=== PATIENT | male | born 1945 | race Caucasian/White ===

== ENCOUNTER 2017-09-23 08:42 | Emergency (ER) | payer MEDICARE ==
--- NOTE | 2017-09-23 10:12 | UC ---
Respiratory Complaint HPI - HPI Summary HPI Summary: Cough and congestion in chest worsening over the past week - History of Current Complaint Chief Complaint: UCRespiratory Stated Complaint: COUGH Time Seen by Provider: 09/23/17 10:11 Hx Obtained From: Patient Onset/Duration: Gradual Onset, Lasting Days - 7, Still Present Timing: Constant Severity Initially: Moderate Severity Currently: Moderate Pain Intensity: 0 Character: Cough: Productive Aggravating Factors: Deep Breaths, Recumbent Position Alleviating Factors: Bronchodilator Associated Signs And Symptoms: Positive: Pleuritic Chest Pain, Wheezing, URI, Nasal Congestion - Allergies/Home Medications Allergies/Adverse Reactions: Allergies Allergy/AdvReac Type Severity Reaction Status Date / Time COY Inhibitors Allergy Coughing Verified 09/23/17 09:02 atorvastatin Allergy Muscle Ache Verified 09/23/17 09:03 cephalexin [From Keflex] Allergy Swelling Verified 09/23/17 09:02 Penicillins Allergy Swelling Verified 09/23/17 09:04 Tetanus Vaccines and Toxoid Allergy Unknown Verified 09/23/17 09:02 Reaction Details PMH/Surg Hx/FS Hx/Imm Hx Previously Healthy: No Endocrine History: Diabetes, Dyslipidemia Cardiovascular History: Cardiac Disease Respiratory History: Asthma GI/ History: Gastroesophageal Reflux - Surgical History Surgical History: Yes Surgery Procedure, Year, and Place: Tonsillectomy 1952. Quadruple bypass 1990 [facility], single bypoass 2004. Nasal polyp removal 1991 and 1992 [facility]. Multiple angiograms, Single bypass 2004 [facility]. 2 stents 2003 [facility]. External beam radiation for prostate CA 1999 [facility]. Scar tissue removal from urethra [place] [facility] [place] 2 additional stents Aug 2013 [facility] [place]. Carotid endartectomy 2010 [facility] - Family History Known Family History: Positive: Hypertension - father Negative: Cardiac Disease, Diabetes - Social History Occupation: Retired Lives: With Family Alcohol Use: None Substance Use Type: None Smoking Status (MU): Former Smoker When Did the Patient Quit Smoking/Using Tobacco: 1982 - Immunization History Most Recent Influenza Vaccination: may 2016 Most Recent Tetanus Shot: 2012 Most Recent Pneumonia Vaccination: 2012 Review of Systems Constitutional: Fever - "99.3" Skin: Negative Eyes: Negative ENT: Negative Respiratory: Cough Cardiovascular: Negative Gastrointestinal: Negative Genitourinary: Negative Motor: Negative Neurovascular: Negative Musculoskeletal: Arthralgia, Myalgia Neurological: Negative Psychological: Negative Is Patient Immunocompromised?: No All Other Systems Reviewed And Are Negative: Yes Physical Exam Triage Information Reviewed: Yes Appearance: No Pain Distress, Ill-Appearing - mild, Obese Vital Signs: Initial Vital Signs Temp 98.1 F 09/23/17 08:47 Pulse 59 09/23/17 08:47 Resp 16 09/23/17 08:47 BP 125/65 09/23/17 08:47 Pulse Ox 95 09/23/17 08:47 Vital Signs Reviewed: Yes Eye Exam: Normal Eyes: Positive: Conjunctiva Clear ENT Exam: Normal ENT: Positive: Normal ENT inspection, Hearing grossly normal, Pharynx normal, TMs normal, Uvula midline. Negative: Nasal congestion, Tonsillar swelling, Tonsillar exudate, Trismus, Muffled voice, Hoarse voice, Dental tenderness, Sinus tenderness Dental Exam: Normal Neck exam: Normal Neck: Positive: Supple, Nontender Respiratory Exam: Normal Respiratory: Positive: Chest non-tender, Decreased breath sounds, Wheezing Cardiovascular Exam: Normal Cardiovascular: Positive: RRR, No Murmur, Pulses Normal, Brisk Capillary Refill Musculoskeletal Exam: Normal Musculoskeletal: Positive: Strength Intact, ROM Intact, No Edema Neurological Exam: Normal Neurological: Positive: Alert, Muscle Tone Normal Psychological Exam: Normal Skin Exam: Normal UC Diagnostic Evaluation - Laboratory O2 Sat by Pulse Oximetry: 95 - Radiology Xray Interpretation: Positive (See Comments) - early RLL infiltrate vs atlectasis Radiology Interpretation Completed By: Radiologist Respiratory Course/Dx - Course Course Of Treatment: Levoquin, continue albuterol, mucinex, tylenol follow with Dr. Ha - Differential Dx/Diagnosis Provider Diagnoses: RLL pneumonia Discharge - Discharge Plan Condition: Good Disposition: HOME Prescriptions: Levofloxacin TAB* [Levaquin TAB*] 500 mg PO DAILY #10 tab Patient Education Materials: Bacterial Pneumonia (ED) Referrals: Pedro Gillespie DO [Primary Care Provider] - 2 Days
[2017-09-23] MEDS ORDERED: Albuterol/Ipratropium NEB.SOL* Albuterol 2.5 MG/Ipratropium 0.5 MG 3 ML INH ONE (10:19)
[2017-09-23 10:44] VITALS: BP 159/88
--- NOTE | 2017-09-23 10:45 | RAD ---
HISTORY: Shortness breath, cough COMPARISONS: October 17, 2013 VIEWS: 4: Frontal dual-energy and lateral views of the chest. FINDINGS: CARDIOMEDIASTINAL SILHOUETTE: The cardiomediastinal silhouette is normal. BRANDON: The brandon are normal. PLEURA: The costophrenic angles are sharp. No pleural abnormalities are noted. LUNG PARENCHYMA: There is hyperinflation with flattening of the diaphragm and expansion of the AP diameter of the chest. There is patchy linear opacification of the right lower lung. ABDOMEN: The upper abdomen is clear. There is no subphrenic gas. BONES AND SOFT TISSUES: The patient is status post median sternotomy. OTHER: None. IMPRESSION: COPD PATCHY ATELECTASIS VERSUS EARLY CONSOLIDATION OF THE RIGHT LOWER LUNG. RECOMMEND FOLLOW-UP UNTIL RESOLUTION TO EXCLUDE UNDERLYING PULMONARY PARENCHYMAL PATHOLOGY.
== END 2017-09-23 11:15 | disposition home or self-care (01) ==
LOC: UCEAST 08:42
DX: J18.9 Pneumonia, unspecified organism (principal); Z87.891 Personal history of nicotine dependence
CPT/HCPCS: 71046; 87502; 99213; A9270-GY; G0463

== ENCOUNTER 2018-12-12 14:54 | Inpatient (IN) | payer MEDICARE ==
[2018-12-12] MEDS ORDERED: NS 0.9% 1000 ML** 1,000 ML IV ONE (15:11)
--- NOTE | 2018-12-12 15:17 | ED ---
GI/ HPI - HPI Summary HPI Summary: Patient is a 73 y/o male who presents to the ED c/o urinary retention. 6 days ago he was diagnosed with a UTI and was placed on Ciprofloxacin. This past week he saw his PCP Dr. Gillespie, who states that his kidney function has worsened. Patient now c/o mild suprapubic pressure and decreased urinary output. A few days ago he also had chills. Patient denies any CP, SOB, fever, or N/V. Pain is rated a 2/10 in severity. BP in triage: 92/63. PMHx DM, HTN, CHF, GERD, HI. - History of Current Complaint Chief Complaint: EDGeneral Time Seen by Provider: 12/12/18 15:09 Stated Complaint: LOW KIDNEY FUNCTION PER PT Hx Obtained From: Patient Onset/Duration: Started Days Ago - 6, Still Present Timing: Constant Current Severity: Mild Pain Intensity: 2 Pain Characteristics: Pressure Associated Signs and Symptoms: Positive: Chills. Negative: Nausea, Vomiting, Fever - Additional Pertinent History Primary Care Physician: KIET - Allergy/Home Medications Allergies/Adverse Reactions: Allergies Allergy/AdvReac Type Severity Reaction Status Date / Time COY Inhibitors Allergy Coughing Verified 05/31/18 10:54 atorvastatin Allergy Muscle Ache Verified 05/31/18 10:54 cephalexin [From Keflex] Allergy Swelling Verified 05/31/18 10:54 Penicillins Allergy Swelling Verified 05/31/18 10:54 Tetanus Vaccines and Toxoid Allergy Unknown Verified 05/31/18 10:54 Reaction Details Home Medications: Home Medications Albuterol inh POWDER (NF) [Proair Respiclick] 2 puff INH Q4HR PRN 12/12/18 [ History Confirmed 12/12/18] Aspirin EC TAB* [Ecotrin EC Low Dose 81 MG*] 81 mg PO DAILY 12/12/18 [History Confirmed 12/12/18] Cetirizine* [ZyrTEC 10 MG TAB*] 10 mg PO DAILY 12/12/18 [History Confirmed 12/12] Cholecalciferol (Vitamin D3) [Vitamin D3] 5,000 unit PO DAILY 12/12/18 [History Confirmed 12/12/18] Ciprofloxacin TAB* [Cipro 500 MG TAB*] 500 mg PO BID 12/12/18 [History Confirmed 12/12/18] Clopidogrel TAB* [Plavix TAB*] 75 mg PO DAILY 12/12/18 [History Confirmed ] Furosemide TAB* [Lasix TAB*] 20 mg PO DAILY 12/12/18 [History Confirmed 12/12/18 ] Insulin Aspart Prot/Insuln Asp [Novolog Mix 70-30 Flexpen Syrn] 14 unit SUBCUT QAM 12/12/18 [History Confirmed 12/12/18] Insulin GLARGINE(*) [Lantus(*)] 45 units SUBCUT BID 12/12/18 [History Confirmed 12/12/18] Magnesium Oxide TAB* [MagOx 400 TAB*] 800 mg PO BEDTIME 12/12/18 [History Confirmed 12/12/18] Metoprolol Tartrate TAB* [Lopressor TAB*] 50 mg PO BID 12/12/18 [History Confirmed 12/12/18] Montelukast Sodium TAB* [Singulair TAB*] 10 mg PO DAILY 12/12/18 [History Confirmed 12/12/18] Multivitamins/Minerals TAB* [Theragran/minerals TAB*] 1 tab PO DAILY 12/12/18 [ History Confirmed 12/12/18] Potassium Chlor TAB* [Klor Con ER TAB*] 10 meq PO DAILY 12/12/18 [History Confirmed 12/12/18] Simvastatin (NF) [Zocor (NF)] 80 mg PO DAILY 12/12/18 [History Confirmed ] Spironolactone TAB* [Aldactone TAB*] 12.5 mg PO DAILY 12/12/18 [History Confirmed 12/12/18] Vitamin B Complex CAP* [B Complex CAP*] 1 cap PO BID 12/12/18 [History Confirmed 12/12/18] hydrALAZINE TAB* [Apresoline TAB*] 25 mg PO BID 12/12/18 [History Confirmed 02/23] PMH/Surg Hx/FS Hx/Imm Hx Endocrine/Hematology History: Reports: Hx Diabetes Cardiovascular History: Reports: Hx Angina, Hx Angioplasty, Hx Congestive Heart Failure, Hx Coronary Artery Disease, Hx Hypercholesterolemia, Hx Hypertension, Hx Myocardial Infarction, Other Cardiovascular Problems/Disorders - hyperlipidemia, multiple angioplasties, 4 stents, carotid endartectomy Denies: Hx Pacemaker/ICD Respiratory History: Reports: Hx Asthma, Hx Sleep Apnea - CPAP - will bring, Other Respiratory Problems/Disorders - SOB on exertion Denies: Hx Chronic Obstructive Pulmonary Disease (COPD) - PT STATES NO GI History: Reports: Hx Gastroesophageal Reflux Disease History: Reports: Hx Benign Prostatic Hyperplasia, Other Problems/ Disorders - hx prostate CA, BPH - sees dr kidd every 6 months Denies: Hx Dialysis, Hx Renal Disease Musculoskeletal History: Reports: Hx Arthritis Denies: Hx Rheumatoid Arthritis, Hx Osteoporosis, Hx Scoliosis Sensory History: Reports: Hx Cataracts - no surgery yet, Hx Contacts or Glasses - glasses Denies: Hx Glaucoma Opthamlomology History: Reports: Hx Cataracts - no surgery yet, Hx Contacts or Glasses - glasses Denies: Hx Glaucoma Neurological History: Denies: Hx Headaches, Hx Seizures, Hx Transient Ischemic Attacks (TIA), Other Neuro Impairments/Disorders Psychiatric History: Denies: Hx Anxiety, Hx Depression - Cancer History Cancer Type, Location and Year: Prostate Hx Radiation Therapy: Yes - Surgical History Surgery Procedure, Year, and Place: Tonsillectomy 1952. Quadruple bypass 1990 [facility],. single bypass [facility]. Nasal polyps removal 1991 and 1992 [facility]. Multiple angiograms, [facility] and [facility]. 2 stents 2003 - [facility]. External beam radiation for prostate CA 1999 [facility]. Scar tissue removal from urethra 2001 [facility]. 2 additional stents Aug 2013 [facility] [place]. Carotid endartectomy 2010 [facility] Hx Anesthesia Reactions: No - Immunization History Date of Tetanus Vaccine: Up to date Date of Influenza Vaccine: May 2016 Infectious Disease History: No Infectious Disease History: Denies: Traveled Outside the [place] in Last 30 Days - Family History Known Family History: Positive: Hypertension - father Negative: Cardiac Disease, Diabetes - Social History Alcohol Use: None Hx Substance Use: No Substance Use Type: Reports: None Hx Tobacco Use: Yes Smoking Status (MU): Former Smoker Type: Cigarettes Amount Used/How Often: 1ppd for 13 yrs Review of Systems Positive: Chills. Negative: Fever Negative: Chest Pain Negative: Shortness Of Breath Positive: Abdominal Pain - suprapubic pressure. Negative: Vomiting, Nausea Positive: other - decreased output All Other Systems Reviewed And Are Negative: Yes Physical Exam - Summary Physical Exam Summary: GENERAL: Patient is a well-developed and nourished M who is lying comfortable in the stretcher. Patient is not in any acute respiratory distress. HEAD AND FACE: Normocephalic EYES: PERRLA, EOMI x 2. EARS: Hearing grossly intact. MOUTH: Oropharynx within normal limits. NECK: Supple, trachea is midline, no adenopathy, no JVD, no carotid bruit. CHEST: Symmetric, no tenderness at palpation LUNGS: Clear to auscultation bilaterally. No wheezing or crackles. CVS: Regular rate and rhythm, S1 and S2 present, no murmurs or gallops appreciated. ABDOMEN: Soft, non-tender. Bowel sounds are normal. No abnormal abdominal pulsations. Obese. EXTREMITIES: Full ROM in all major joints, no edema, no cyanosis or clubbing. NEURO: Alert and oriented x 3. No acute neurological deficits. Speech is normal and follows commands. SKIN: Dry and warm Triage Information Reviewed: Yes Vital Signs On Initial Exam: Initial Vitals Temp Pulse Resp BP Pulse Ox 97.3 F 85 19 70/52 96 12/12/18 14:58 12/12/18 14:58 12/12/18 14:58 12/12/18 14:58 12/12/18 14:58 Vital Signs Reviewed: Yes Diagnostics - Vital Signs Vital Signs Temp Pulse Resp BP Pulse Ox 12/12/18 14:58 97.3 F 85 19 70/52 96 - Laboratory Result Diagrams: 12/12/18 15:51 12/12/18 15:51 Lab Statement: Any lab studies that have been ordered have been reviewed, and results considered in the medical decision making process. - Radiology CXR Radiology Interpretation Completed By: Radiologist Summary of Radiographic Findings: NO ACTIVE CARDIOPULMONARY DISEASE IS NOTED. Postop changes are noted. ED physician reviewed radiology report. - EKG 15:13 Cardiac Rate: NL - 82 bpm EKG Rhythm: Sinus Rhythm Ectopy: PVCs EKG Comparison: No Significant Change - Similar ST depression compard to EKG in 2018 Summary of EKG Findings: IVCD, ST depression in anterolateral leads 16:43 Cardiac Rate: Other Rate - Junctional rhythm 64 bpm EKG Rhythm: Sinus Rhythm - junctional EKG Comparison: No Significant Change - similar to previous Summary of EKG Findings: Inverted T waves in anterolateral leads GIGU Course/Dx - Course Course Of Treatment: Patient is a 73 y/o male who presents to the ED c/o urinary retention. 6 days ago he was diagnosed with a UTI and was placed on Ciprofloxacin. A physical exam was normal. A CXR was normal. An EKG at 15:13 revealed PVCs, IVCD, ST depression in anterolateral leads. An EKG at 16:43 revealed junctional rhythm and inverted T waves in anterolateral leads. In the course patient was given Ciprofloxacin and fluids. UA revealed protein, blood, leukocyte esterase, and hyaline casts. Lactic acid of 2.3. Troponin of 1.45 however patient has a history of elevated troponin. Final dx of FLASH and UTI. Patient will be admitted to Dr. Joy. I discussed results with patient. The patient agrees with this plan. - Diagnoses Provider Diagnoses: FLASH (acute kidney injury), UTI (urinary tract infection) - Physician Notifications Discussed Care Of Patient With: Rhoda Joy Time Discussed With Above Provider: 16:53 Instructed by Provider To: Admit As Inpatient - She would like a Perera placed. - Critical Care Time Critical Care Time: 30-74 min Discharge - Sign-Out/Discharge Documenting (check all that apply): Patient Departure - Admit Patient Received Moderate/Deep Sedation with Procedure: No - Discharge Plan Condition: Stable Disposition: ADMITTED TO [facility] - Billing Disposition and Condition Condition: STABLE Disposition: Admitted to [facility] - Attestation Statements Document Initiated by Scribe: Yes Documenting Scribe: Alaina Odell Provider For Whom Scribe is Documenting (Include Credential): Andriy Nieves MD Scribe Attestation: Alaina Velez, scribed for Andriy Nieves MD on 12/12/18 at 1821. Scribe Documentation Reviewed: Yes Provider Attestation: The documentation as recorded by the Alaina gibbs accurately reflects the service I personally performed and the decisions made by me, Andriy Nieves MD Status of Scribe Document: Viewed
[2018-12-12 15:47] LABS: Urine Appearance Turbid; Urine Bacteria Absent (Absent); Urine Bilirubin Negative (Negative); Urine Blood 1+ (Negative); Urine Color Yellow; Urine Glucose Negative (Negative); Urine Ketones Negative (Negative); Urine Nitrite Negative (Negative); Urine Protein 2+(100 mg/dL) (Negative); Urine Red Blood Cell 3+(>10/hpf) (Absent); Urine Specific Gravity 1.017 (1.010-1.030); Urine Squamous Epithelial Cell Present (Absent); Urine Urobilinogen Negative (Negative); Urine White Blood Cell 3+(>20/hpf) (Absent)
[2018-12-12 16:03] LABS: ABS Basophils 0.1 10^3/ul (0-0.2); ABS Eosinophils 0.2 10^3/ul (0-0.6); ABS Monocytes 0.9 10^3/ul (0-0.8); ABS Neutrophils 6.2 10^3/ul (1.5-7.7); Eosinophil % 2.2 %; Hematocrit 25 % (42-52); Hemoglobin 8.2 g/dL (14.0-18.0); Lymphocyte % 12.1 %; Mean Corpuscular HGB Conc 33 g/dL (31-36); Mean Corpuscular Hemoglobin 29 pg (27-31); Mean Corpuscular Volume 87 fL (80-94); Mean Platelet Volume 8.3 fL (7.4-10.4); Nucleated Red Blood Cells % 0.1; Platelet Count 160 10^3/uL (150-450); Red Blood Count 2.82 10^6 /uL (4.18-5.48); Red Cell Distribution Width 17 % (10.5-15); White Blood Count 8.4 10^3/uL (3.5-10.8)
[2018-12-12 16:13] LABS: Activated Partial Thrombo Time 26.5 seconds (26.0-36.3); INR 1.35 (0.82-1.09)
[2018-12-12 16:33] LABS: ALT 24 U/L (7-52); AST 29 U/L (13-39); Albumin 3.3 g/dL (3.2-5.2); Albumin/Globulin Ratio 0.8 (1-3); Alkaline Phosphatase 56 U/L (34-104); Anion Gap 11 mmol/L (2-11); Blood Urea Nitrogen 53 mg/dL (6-24); C Reactive Protein 95.28 mg/L (<8.01); CO2 Carbon Dioxide 19 mmol/L (22-32); Chloride 105 mmol/L (101-111); EGFR African American 20.7 (>60); EGFR Non-African American 17.1 (>60); Globulin 3.9 g/dL (2-4); Glucose 137 mg/dL (70-100); Potassium 4.6 mmol/L (3.5-5.0); Sodium 135 mmol/L (135-145); Total Protein 7.2 g/dL (6.4-8.9)
[2018-12-12] MEDS ORDERED: Ciprofloxacin 400MG IVPREMIX(* 400 MG/200 ML BAG IVPB ONE (16:36)
[2018-12-12 16:38] LABS: Troponin I 1.45 ng/mL (<0.04)
[2018-12-12] MEDS ORDERED: Al Hydrox/Mg Hydrox/Simet LIQ* 30 ML UDC PO PRN (17:23)
[2018-12-12] MEDS ORDERED: Morphine INJ* 2 MG/ML 1 ML SYRINGE (TWO MG - NEW SYRINGE VERSION) IV PRN (17:23)
[2018-12-12] MEDS ORDERED: Fluticasone NASAL SPRAY 50MCG* 16 gm SPRAY BTL BOTH NARES PRN (17:33)
[2018-12-12] MEDS ORDERED: Albuterol HFA INHALER* 8 gm MDI INH PRN (17:35)
[2018-12-12] MEDS ORDERED: Dextrose 50% Syringe 50 ML* 25 GM/50 ML SYRINGE IV PUSH PRN (17:39)
[2018-12-12] MEDS: NS 0.9% 1000 ML** 3,000 ML IV ONE ×2 (18:08→18:09)
[2018-12-12 18:21] LABS: Troponin I 1.47 ng/mL (<0.04)
--- NOTE | 2018-12-12 20:13 | HP ---
CC: Dr. Gillespie; Dr. Hobbs; Dr. Mesa; Dr. Mg * HISTORY AND PHYSICAL: DATE OF ADMISSION: 12/12/18 PRIMARY CARE PROVIDER: Dr. Gillespie. CHIEF COMPLAINT: Sent by primary care provider's office for renal failure. HISTORY OF PRESENT ILLNESS: Nahum Soto is a 73-year-old male with a history of extensive coronary artery disease, diastolic dysfunction with EF of 45%, obstructive sleep apnea, diabetes, obesity, who presented to the hospital after he was sent by his primary care provider's office when his lab work turned out to show acute renal failure. The patient stated that for the past week and a half, he has been having urinary frequency, urgency, and sensation of an incomplete bladder emptying. He went to see his primary care provider a week ago, who placed the patient on ciprofloxacin and apparently a urine sample was obtained, but I am unable to find cultures at [facility]'s lab reports. The patient stated that yesterday, he went back to his primary care provider's office again complaining of continuation of symptoms, despite being on Cipro for almost a week. He also had an episode of fever 2 days prior and an episode of diarrhea 3 days prior. Both of those resolved. The patient had some lab work drawn and today his primary care provider's office called the patient to come into the ED for evaluation. Here, he was noted to have purulent urine and there is a scant amount of maybe 100 mL of postvoid residual when Perera was placed. His systolic pressures in triage were 70, but better after his nitro patch was removed. He complains of no chest pain and he is going to be admitted with a diagnosis of severe sepsis due to UTI. PAST MEDICAL HISTORY: 1. History of morbid obesity. 2. Asthma. 3. History of bronchiectasis, under the care of Dr. Hobbs. 4. History of coronary artery disease, status post coronary artery bypass grafting and stenting, last got in 2013 when the patient had 2 new stents placed. 5. History of right internal carotid stenosis at 50% to 79%. 6. Obstructive sleep apnea, on CPAP. 7. Allergic rhinitis. 8. Gastroesophageal reflux disease. 9. History of diastolic CHF with EF of 45%. 10. Prostate cancer, status post external beam radiation. 11. Diabetes, insulin dependent. MEDICATIONS: At home include: 1. CPAP at night with unknown settings. 2. Insulin Lantus at 45 units b.i.d. 3. Hydralazine 25 mg b.i.d. 4. Singulair 10 mg daily. 5. Plavix 75 mg daily. 6. Aldactone 12.5 mg daily. 7. Protonix 40 mg a day. 8. Aspirin 81 mg daily. 9. Zyrtec 10 mg daily. 10. Zocor 80 mg daily. 11. Terazosin 5 mg q.p.m. 12. Albuterol inhaler on a p.r.n. basis. 13. Asmanex 2 puffs inhalation b.i.d. 14. Flonase nasal spray on a p.r.n. basis. 15. Nitroglycerin patch 0.2 mg 1 patch q.p.m. 16. Vitamin B complex 1 capsule b.i.d. 17. Nitroglycerin 0.4 mg on a p.r.n. basis. 18. Mag-Ox 400 mg daily. 19. Vitamin D 5000 units daily. 20. Insulin NovoLog 70/30 at 14 units in a.m. 21. Potassium chloride 10 mEq daily. 22. Furosemide 20 mg daily. 23. Metoprolol tartrate 50 mg b.i.d. 24. Ciprofloxacin 500 mg b.i.d. ALLERGIES: Include COY INHIBITORS, ATORVASTATIN, CEPHALEXIN, PENICILLIN, and TETANUS VACCINE. The patient stated that he is not going to be able to tolerate PENICILLIN or any CEPHALOSPORINS. FAMILY HISTORY: Father with history of heart disease and hypertension. Mother who at the age of 93 of "old age." Brother with history of heart disease. SOCIAL HISTORY: The patient has a history of smoking and quit in 1972. There is no history of alcohol or drug use. His surrogate decision maker is his , Gabrielle, phone number [phone]. REVIEW OF SYSTEMS: Please see history of present illness. In addition to the above mentioned, the patient stated that he denies any chest pain or shortness of breath. His legs are chronically swollen. His appetite had been good and he stated he had been drinking plenty. He denies any dizziness or headaches. All the remaining 12 systems were reviewed with the patient and were otherwise negative. PHYSICAL EXAMINATION GENERAL: The patient is a very pleasant 73-year-old male, who is in no acute distress. Alert, awake, and oriented x3. VITAL SIGNS: Blood pressure of 108/73, heart rate of 79 and regular, respiratory rate 21, oxygen saturation 92% on room air, temperature of 98.2. HEENT: Head: Atraumatic, normocephalic. Eyes: Pupils are equal, reactive to light and accommodation. Oropharynx is clear. Mucosa moist. The patient has noted to have geographic tongue which is chronic. NECK: Supple. No JVD. No bruits bilaterally. RESPIRATORY: Distant breath sounds bilaterally. CARDIOVASCULAR: Regular rate and rhythm. No murmur. ABDOMEN: Soft, nontender. Bowel sounds are present in all 4 quadrants. No CVA tenderness bilaterally on palpation. EXTREMITIES: There is +1 nonpitting pedal edema. Pulses are +2 bilaterally. No clubbing or cyanosis. NEUROLOGIC EVALUATION: Speech is clear. Cranial nerves II through XII are grossly intact. Motor strength is 5/5 bilaterally. PSYCHIATRIC EVALUATION: Oriented x3 with no evidence of anxiety or depression. SKIN: On evaluation of the skin, no ecchymotic areas or rashes noted. DIAGNOSTIC STUDIES/LAB DATA: Laboratory data showed sodium of 135, potassium 4.6, chloride 107, carbon dioxide 19, BUN 53, creatinine 3.53. Liver function tests were unremarkable. Troponin of 1.45. Lactic acid is 2.3. C-reactive protein was 95. Brain natriuretic peptide was 480. The patient's white blood cell count of 8.4, hemoglobin of 8.2, hematocrit of 25 , MCV of 87, platelets of 170. Urinalysis, +2 protein, +1 blood, +3 esterase, +3 wbc's, absent bacteria. Portable chest x-ray, impression: "No active cardiopulmonary disease is noted. " The patient's EKG showed diffuse ST depressions in leads V2 to V6 and II, III, and aVF, more pronounced in leads II and aVF and all of those changes are chronic, but definitely more pronounced than prior. The patient also has nonspecific intraventricular conduction delay, which is also chronic. ASSESSMENT AND PLAN: 1. The patient has severe sepsis with hypotension that resolved after intravenous fluid bolus as was elevated lactic acid and acute renal failure. All this is related likely to urinary tract infection. So far, the patient does not have costovertebral angle tenderness to indicate pyelonephritis, but we will obtain renal ultrasound to evaluate it further. The patient had a Perera catheter placed in the ED for hemodynamic monitoring, intravenous hydration. Due to the patient being on Cipro for almost a week with failure of treatment as well as allergy to CEPHALOSPORINS and PENICILLINS, I will place the patient on meropenem for the time being, awaiting cultures. 2. The patient has history of diastolic dysfunction with EF of 45%. The patient has a history of being on furosemide, it is going to be held due to hypotension and acute renal failure. I will place the patient on daily weights , but for the time being he will be treated with intravenous fluid bolus as per sepsis protocol, which is an additional 3 L to the 1 L that the patient got in the emergency department. Subsequently, I will place the patient on gentle intravenous hydration with normal saline at 75 mL an hour. 3. The patient has anemia, which appears to be acute on chronic with hemoglobin baseline level at 11 to 10. At this point, I suspect there may be drawing lab error. At this point, the patient has no signs or symptoms of bleeding. I will obtain stool Hemoccult and observe. 4. The patient has elevated troponin and EKG changes. The patient has a history of positive troponins in the past, but never that high. He is completely asymptomatic from a cardiac standpoint and denies any chest pain or shortness of breath. I suspect demand ischemia on top of that in this patient with history of coronary artery disease and acute renal failure. We will continue the patient's Plavix, continue observation on telemetry monitored bed with following troponins as well as transthoracic echocardiogram is going to be obtained in the morning. 5. For obstructive sleep apnea, the patient is going to be placed on CPAP nightly. 6. For acute renal failure, the patient is likely due to urinary tract infection, may be obstruction, although the patient has had a rather low postvoid residual and hypotension. The patient is going to be placed on intravenous fluids; on the floor it is going to be continued. We will hold on nephrotoxic medications and renally dose patient's meropenem. 7. For DVT prophylaxis, the patient is going to be placed on heparin subcutaneously. 8. The patient's code status is full. His surrogate is his . TIME SPENT: Approximately 75 minutes was spent on admission of this patient, more than half that time was spent [id number] with the patient during the interview and physical exam. [id number]/[facility] [place] #: [id number] JULIANA
[2018-12-12] MEDS: Terazosin CAP* 5 MG PO SCH (20:16)
[2018-12-12] MEDS: Insulin GLARGINE(*) 1 UNITS UNIT SUBCUT SCH (20:16)
[2018-12-12] MEDS: Meropenem 1 GM PREMIX(*) 1 GM/50 ML BAG IV SCH (20:16)
[2018-12-12] MEDS: Insulin LISPRO* 1 UNITS UNIT SUBCUT SCH (20:46)
[2018-12-12] MEDS ORDERED: Atorvastatin* 40 MG TAB PO SCH (21:00)
[2018-12-12] MEDS: Metoprolol Tartrate TAB* 50 mg PO SCH (21:14)
[2018-12-12] MEDS: Heparin VIAL(*) 5000 UNITS/ML VIAL (FIVE THOUSAND) SUBCUT SCH (21:15)
[2018-12-12] MEDS: NS 0.9% 1000 ML** 1,000 ML IV SCH (21:20)
[2018-12-12] MEDS: Magnesium Oxide TAB* 400 MG PO SCH (21:24)
[2018-12-12] MEDS: CMCS: Simvastatin TAB(NF) 20 MG TAB PO SCH (22:35)
--- NOTE | 2018-12-12 23:00 | PN ---
Sepsis Event Evaluation Date of Evaluation: 12/12/18 Time of Evaluation: 22:00 Current Stage of Sepsis: Severe Sepsis Vital Signs - Last 12 Hours: Vital Signs - 12 hr Temp Pulse Resp BP Pulse Ox 12/12/18 19:35 97.9 F 71 8 107/76 99 12/12/18 18:27 99.1 F 78 18 98/68 98 12/12/18 18:00 73 25 95 12/12/18 17:58 70 16 98/68 97 12/12/18 17:28 79 21 108/73 92 12/12/18 17:09 98.2 F 58 16 199/81 98 12/12/18 17:03 66 23 99/64 93 12/12/18 17:00 64 24 93 12/12/18 16:58 65 28 79/58 91 12/12/18 16:00 67 27 94 12/12/18 15:12 26 110/62 12/12/18 14:58 97.3 F 85 19 70/52 96 Lactic Acid: 12/12/18 12/12/18 15:51 19:44 Lactic Acid 2.3 H* 1.5 - Cardiopulmonary Exam Capillary Refill: Immediate Respiratory: Symmetrical Chest Expansion and Respiratory Effort, Clear to Auscultation Cardiovascular: NL Sounds; No Murmurs; No JVD, RRR, No Edema - Peripheral Pulse Exam Radial Pulses: Bilateral Normal Pedal Pulses: Bilateral Normal Posterior Tibial Pulse: Bilateral Normal Popliteal Pulses: Bilateral Normal - Skin Exam Skin Exam: Normal Turgor, [place] - [place] Coma Scale Best Eye Response: 4 - Spontaneous Best Motor Response: 6 - Obeys Commands Best Verbal Response: 5 - Oriented Coma Scale Total: 15 Assess/Plan/Problems-Billing Assessment: - Patient Problems (1) Severe sepsis Current Visit: Yes Status: Acute Code(s): A41.9 - SEPSIS, UNSPECIFIED ORGANISM; R65.20 - SEVERE SEPSIS WITHOUT SEPTIC SHOCK SNOMED Code(s): 59803820 Comment: - SBP WNL 107 - Met for severe sepsis on admission - hypotension has resolved - will continue IVF , antibiotics - lactic acid 1.5 Status and Disposition: inpt
[2018-12-12] MEDS: Acetaminophen TAB* 325 MG PO PRN (23:20)
[2018-12-12] MEDS ORDERED: Morphine 4 MG/ML VIAL (1 ml) 4 MG/ML VIAL IV PRN (23:30)
[2018-12-13 00:18] LABS: Troponin I 1.18 ng/mL (<0.04)
[2018-12-13] MEDS ORDERED: Polyethylene Glycol 3350* 17 GM PACKET PO PRN (04:18)
[2018-12-13] MEDS ORDERED: Magnesium Hydroxide LIQ* 30 ML UDC PO PRN (04:18)
[2018-12-13] MEDS ORDERED: Lidocaine 2% JELLY* 6 ML JELLY TOPICAL ONE (04:19)
[2018-12-13] MEDS: Acetaminophen TAB* 325 MG PO PRN (04:31)
[2018-12-13] MEDS: Insulin GLARGINE(*) 1 UNITS UNIT SUBCUT SCH ×2 (05:41→17:48)
[2018-12-13] MEDS: Heparin VIAL(*) 5000 UNITS/ML VIAL (FIVE THOUSAND) SUBCUT SCH ×3 (05:41→21:22)
[2018-12-13] MEDS: Meropenem 1 GM PREMIX(*) 1 GM/50 ML BAG IV SCH ×2 (05:41→19:27)
[2018-12-13 05:43] LABS: ABS Eosinophils 0.3 10^3/ul (0-0.6); ABS Lymphocytes 0.9 10^3/ul (1.0-4.8); ABS Monocytes 0.8 10^3/ul (0-0.8); ABS Neutrophils 6.2 10^3/ul (1.5-7.7); Eosinophil % 3.5 %; Hematocrit 28 % (42-52); Hemoglobin 9.2 g/dL (14.0-18.0); Lymphocyte % 11.5 %; Mean Corpuscular HGB Conc 33 g/dL (31-36); Mean Corpuscular Hemoglobin 29 pg (27-31); Mean Corpuscular Volume 86 fL (80-94); Mean Platelet Volume 8.3 fL (7.4-10.4); Platelet Count 136 10^3/uL (150-450); Red Blood Count 3.21 10^6 /uL (4.18-5.48); Red Cell Distribution Width 17 % (10.5-15); White Blood Count 8.2 10^3/uL (3.5-10.8)
[2018-12-13 06:11] LABS: BUN/Creatinine Ratio 18.7 (8-20); Calcium 8.2 mg/dL (8.6-10.3); EGFR African American 30.6 (>60); EGFR Non-African American 25.3 (>60); Potassium 4.4 mmol/L (3.5-5.0)
[2018-12-13] MEDS: Insulin LISPRO* 1 UNITS UNIT SUBCUT SCH ×4 (08:02→21:21)
[2018-12-13] MEDS: Clopidogrel TAB* 75 MG PO SCH (08:55)
[2018-12-13] MEDS: Aspirin EC TAB* 81 MG TAB.EC PO SCH (08:56)
[2018-12-13] MEDS: Montelukast Sodium TAB* 10 MG PO SCH (08:56)
[2018-12-13] MEDS: Metoprolol Tartrate TAB* 50 mg PO SCH ×2 (08:56→18:53)
[2018-12-13] MEDS ORDERED: Pantoprazole TAB * 40 MG TAB PO SCH (09:00)
[2018-12-13 09:39] LABS: Troponin I 4.52 ng/mL (<0.04)
[2018-12-13] MEDS: NS 0.9% 1000 ML** 1,000 ML IV SCH (11:42)
--- NOTE | 2018-12-13 11:44 | PN ---
Subjective Date of Service: 12/13/18 Interval History: Patient seen today, He is complaining of increase pain from his Perez catheter, and left leg tenderness. He was attempting to have bowel movement and he started to have severe "worse pain ever, 10/10" from his Perez catheter. Later on he started having hematuria. Patient asking to have it removed. He agreed to have it replaced and reinserted if he fails to put out urine. Also his EKG did shows Ischemic changes . Troponin added to his am labs and level did come back at 4.52 (up from 1.18). Cardiology (Dr. Sullivan notified for evaluations) Social History: Unchanged from Admission Past Medical History: Unchanged from Admission Objective Active Medications: Acetaminophen (Tylenol Tab*) 650 mg PO Q4H PRN PRN Reason: FEVER/PAIN Last Admin: 12/13/18 04:31 Dose: 650 mg Al Hydrox/Mg Hydrox/Simethicone (Maalox Plus*) 30 ml PO Q6H PRN PRN Reason: INDIGESTION Albuterol (Ventolin Hfa Inhaler*) 1 puff INH Q4H PRN PRN Reason: SOB/WHEEZING Aspirin (Aspirin Ec Tab*) 81 mg PO DAILY [facility] Last Admin: 12/13/18 08:56 Dose: 81 mg Clopidogrel Bisulfate (Plavix Tab*) 75 mg PO DAILY [facility] Last Admin: 12/13/18 08:55 Dose: 75 mg Dextrose (D50w Syringe 50 Ml*) 12.5 gm IV PUSH .FOR FS < 60 - SS PRN PRN Reason: FS < 60 Fluticasone Propionate (Flonase Nasal Gray 50mcg*) 1 spray BOTH NARES QAM PRN PRN Reason: CONGESTION Heparin Sodium (Porcine) (Heparin Vial(*)) 5,000 units SUBCUT Q8HR [facility] Last Admin: 12/13/18 05:41 Dose: 5,000 units Meropenem (Merrem 1 Gm Premix(*)) 1 gm in 50 mls @ 100 mls/hr IV Q12H [facility] Last Admin: 12/13/18 05:41 Dose: 100 mls/hr Sodium Chloride (Ns 0.9% 1000 Ml) 1,000 mls @ 75 mls/hr IV PER RATE [facility] Last Admin: 12/12/18 21:20 Dose: 75 mls/hr Insulin Glargine (Lantus(*)) 20 units SUBCUT Q12H [facility] Last Admin: 12/13/18 05:41 Dose: 20 units Insulin Human Lispro (Humalog*) 0 units SUBCUT ACHS [facility]; Protocol Last Admin: 12/13/18 08:02 Dose: Not Given Magnesium Hydroxide (Milk Of Magnesia Liq*) 30 ml PO Q6H PRN PRN Reason: CONSTIPATION Magnesium Oxide (Magox 400 Tab*) 800 mg PO BEDTIME [facility] Last Admin: 12/12/18 21:24 Dose: 800 mg Metoprolol Tartrate (Lopressor Tab*) 50 mg PO BID [facility] Last Admin: 12/13/18 08:56 Dose: 50 mg Montelukast Sodium (Singulair Tab*) 10 mg PO DAILY [facility] Last Admin: 12/13/18 08:56 Dose: 10 mg Morphine Sulfate (Morphine 4 Mg/Ml Vial (1 Ml)) 1 mg IV Q4H PRN PRN Reason: PAIN - MILD Last Admin: 12/13/18 02:10 Dose: 1 mg Pantoprazole Sodium (Protonix Tab*) 40 mg PO QAM [facility] Last Admin: 12/13/18 08:55 Dose: 40 mg Polyethylene Glycol/Electrolytes (Miralax*) 17 gm PO DAILY PRN PRN Reason: CONSTIPATION Last Admin: 12/13/18 04:30 Dose: 17 gm Simvastatin (Zocor(Nf)) 80 mg PO 2100 [facility] Last Admin: 12/12/18 22:35 Dose: 80 mg Terazosin HCl (Hytrin Cap*) 5 mg PO QPM [facility] Last Admin: 12/12/18 20:16 Dose: 5 mg Vital Signs - 8 hr 12/13/18 12/13/18 12/13/18 03:39 08:00 08:02 Temperature 97.6 F 97.9 F Pulse Rate 73 85 Respiratory 18 18 20 Rate Blood Pressure 95/63 111/64 (mmHg) O2 Sat by Pulse 95 95 Oximetry Oxygen Devices in Use Now: None Appearance: Awake, Obese. In mild distress from his perez catheter pain and discomfort. Gross hematuria in his perez Eyes: No Scleral Icterus, - - EOMI Ears/Nose/Mouth/Throat: NL Teeth, Lips, Gums, Mucous Membranes Moist Neck: NL Appearance and Movements; NL JVP, Trachea Midline Respiratory: Symmetrical Chest Expansion and Respiratory Effort, - - Bibasilar crakles Cardiovascular: NL Sounds; No Murmurs; No JVD, RRR, - - occasional PVC Abdominal: - - +BS, Obese, Non distended. No tenderness suprapubic and no CVA tenderness Extremities: - - + 2 edema Left greater than right Neurological: Alert and Oriented x 3, NL Sensation Result Diagrams: 12/13/18 05:13 12/13/18 05:13 Assess/Plan/Problems-Billing Assessment: 73 y/o morbid obese male with known history of Extensive CAD (S/p CABG x 2, PTCA ); CHA, Diastolic Heart failure, DM presented to the ER on 12/12/18 for FLASH and hypotension (SBP 70's s/p 3 liters fluid resuscitations) and UTI (failed outpatient Cipro) found to have NQMI with today peaked am Trop of 4.52 - Patient Problems (1) Sepsis secondary to UTI Current Visit: Yes Status: Acute Code(s): A41.9 - SEPSIS, UNSPECIFIED ORGANISM; N39.0 - URINARY TRACT INFECTION, SITE NOT SPECIFIED SNOMED Code(s): 626456217 Comment: - UC from 12/11/18 revealed E-coli. Failed outpatient Cipro - Currently on Merropenem 1 gm IV Q12 Day # 2. - UA from 12/12/18 positive for UTI. will need to follow up UC form 12/12/18 - US of right kidney shows 2.8 cm without hydronephrosis. Will need urology referral as outpatient but nothing acute at this time. (2) Non Q wave myocardial infarction Current Visit: Yes Status: Acute Code(s): I21.4 - NON-ST ELEVATION (NSTEMI) MYOCARDIAL INFARCTION SNOMED Code(s): 826953890 Comment: - Trop peaked at 4.52 this morning. He denies any chest pain. Will continue to trend until peak - Given his EKG changes and elevated troponin, I did ask cardiology (Dr. Sullivan to evaluate patient), - Currently on apsirin 81 mg daily, Plavix 75 mg daily, Lopressor 50 mg bid, Zocor 80 mg HS. (3) CAD (coronary artery disease) Current Visit: Yes Status: Acute Code(s): I25.10 - ATHSCL HEART DISEASE OF [place] CORONARY ARTERY W/O ANG PCTRS SNOMED Code(s): 82622826 Comment: - Trop peaked at 4.52 this morning. He denies any chest pain. Will continue to trend until peak - Given his EKG changes and elevated troponin, I did ask cardiology (Dr. Sullivan to evaluate patient), - Currently on apsirin 81 mg daily, Plavix 75 mg daily, Lopressor 50 mg bid, Zocor 80 mg HS. (4) Diastolic heart failure Current Visit: No Status: Acute Code(s): I50.30 - UNSPECIFIED DIASTOLIC ( CONGESTIVE) HEART FAILURE SNOMED Code(s): 607374216 Comment: - Mixed systollic and diastollic heart failure - Last EF 05/31/2018 EF 35-40% - His home lasix 20 mg daily was held on admission due to hypotensions. This morning his BP is up to 114/64. given the fact that he will be getting one units pRBC and s/p 3 liters. I will give one dose lasix 20mg IV now pretransfusion and prn after transfusion pending his BP and respiratory status. I will keep his spironolactone on hold for now (5) Anemia Current Visit: Yes Status: Acute Code(s): D64.9 - ANEMIA, UNSPECIFIED SNOMED Code(s): 685675521 Comment: - Given his NQMI and progressive decline in his Hct from 12/07/18 most of it could be dilutional but he does have history of PUD and Hx of GI bleed in the past - I will implement cardiology recommendaiton to transfuse one units, and will keep him on PPI bid. (6) GERD (gastroesophageal reflux disease) Current Visit: No Status: Chronic Priority: Low Code(s): K21.9 - GASTRO- ESOPHAGEAL REFLUX DISEASE WITHOUT ESOPHAGITIS SNOMED Code(s): 708088673 Comment: - continue pantoprazole (7) Diabetes mellitus Current Visit: No Status: Acute Code(s): E11.9 - TYPE 2 DIABETES MELLITUS WITHOUT COMPLICATIONS SNOMED Code(s): 88428749 Comment: - Lantus 12 units with SS (8) CHA (obstructive sleep apnea) Current Visit: Yes Status: Acute Code(s): G47.33 - OBSTRUCTIVE SLEEP APNEA ( ADULT) (PEDIATRIC) SNOMED Code(s): 48269699 (9) Leg edema, left Current Visit: Yes Status: Acute Code(s): R60.0 - LOCALIZED EDEMA SNOMED Code(s): 287994644 Comment: - check US rule out DVT (10) DVT prophylaxis Current Visit: No Status: Acute Code(s): FRV3238 - SNOMED Code(s): 735129682 Comment: HSQ Status and Disposition: inpt
[2018-12-13] MEDS ORDERED: Furosemide IV* 10 MG/ML 2 ML VIAL (20 MG) IV ONE (12:17)
--- NOTE | 2018-12-13 12:29 | CONS ---
CARDIOLOGY CONSULTATION: DATE OF CONSULT: 12/13/18 ADDENDUM: The patient was also noted to have some swelling of his left leg and some tenderness on his left calf raising possibility of a DVT. Given the asymmetric swelling, I discussed with the patient and Dr. Ji the possibility of a DVT: consider obtaining duplex scan for DVT. Anticoagulation is complicated on this patient given his anemia and potential need for intervention. I am also reluctant to stop his Plavix given his recent ischemia. However, if he has ongoing anemia or bleeding or needs a procedure, we may have to hold the Plavix to decrease the risk of bleeding. He would require 5 days off Plavix to eliminate the the plavix effect on platelet function. [id number]/[facility] #: [id number] JULIANA
[2018-12-13] MEDS ORDERED: Perflutren Lipid Microsphere* 3 ML VIAL ONE (13:20)
--- NOTE | 2018-12-13 13:37 | CONS ---
CC: Dr. Mg; Dr. Mesa. CONSULTATION REPORT: DATE OF CONSULT: 12/13/18 CONSULTING PHYSICIAN: Dr. Ji. REASON FOR CONSULT: Angina, chest pain evaluation. HISTORY OF PRESENT ILLNESS: This a very pleasant 73-year-old gentleman who has a complex medical history including morbid obesity, sleep apnea, on CPAP, coronary artery disease, status post 2 coronary bypass grafting, ischemic cardiomyopathy, and prostate cancer, who developed a urinary tract infection last week. He was started on antibiotics, but had progressive symptoms despite being on antibiotics. He has had dysuria and polyuria and urgency. He was started on ciprofloxacin a week ago. He went back to his primary doctor on 01/24 complaining of persistent symptoms and a fever 2 days prior and an episode of diarrhea 3 days prior. He was noted to have purulent urine and abnormal labs and was sent to the ER. At triage, his systolic pressure was 70, but was better after his nitro patches were removed. He had no chest pain. He was admitted to the [facility]. However, last night, his metoprolol was held because of systolic blood pressures and his nitro was held and he said that last night he developed chest discomfort radiating to his arms which lasted about an hour and resolved after he got his medications. He has had no further chest pain. His blood pressures are better today. He is being treated with antibiotics. He does report that he has had chronic angina over the last several years which occurs at a relatively low level. He says that he has built up slowly over the last several months to walking 6 minutes on the treadmill from starting at 2 minutes. He says he can do 6 minutes at a low level ground of 1 to 1.2 miles per hour and then does some other exercises and returns and does a second round of 6 minutes. However, if he does 7 minutes, he will get angina. He also gets angina with emotional stress when he is in argument or angry. Usually, this resolves spontaneously with nitroglycerin. He had a high-risk chemical stress test on 05/18/16 which showed a large defect in the anterolateral wall, extended to the apex with minimal marginal reversibility. There was concern based on his high risk test and he underwent cardiac cath on 05/19 which revealed an LVEDP at 30% to 35%, MOY to the LAD was widely patent. Vein graft to the RC demonstrated a 40% to 45% narrowing only. The vein graft to the diagonal was widely patent. The impression was that the coronary artery bypass grafts were patent with increased LVEDP. He had rodriguez monitor in June 2018 which revealed infrequent PVCs and he had an echocardiogram on 05/31/18 with mild to moderately decreased EF of 35% to 40% , mild inferior and apical hypokinesis, moderately dilated RV with reduced RV function, severe biatrial enlargement, mild MR, borderline dilated ascending aorta similar to May 2016. PAST MEDICAL HISTORY: Includes obesity, sleep apnea, on CPAP, hypertension, diabetes, tobacco use - discontinued at 72, asthma, renal insufficiency - worsened with this admission, prostate cancer, Agent [place] exposure in the 70s. He also has a history of bronchiectasis followed by Dr. Hobbs, coronary artery disease, allergic rhinitis, gastroesophageal reflux, congestive heart failure, ischemic cardiomyopathy with an EF of 45%, and prostate cancer, status post external beam radiation. PAST SURGICAL HISTORY: Includes coronary artery bypass grafting in 1990 x4 and repeat in 2004 with a single bypass graft. MEDICATIONS: His inpatient medications include: 1. Acetaminophen. 2. Albuterol. 3. Aspirin 81 mg a day. 4. Clopidogrel 75 mg a day. 5. dextrose 12.5 gm iv push prn.. 6. Heparin 5000 units subcu q.8. 7. Insulin. 8. Magnesium hydroxide p.r.n. 30 cc. 9. Magnesium oxide 800 mg at bedtime. 10. Meropenem 1 g q.12. 11. Metoprolol, Lopressor 50 mg b.i.d. 12. Singulair 10 mg daily. 13. Morphine sulfate 1 g q.4 p.r.n. 14. Pantoprazole 40 mg q.a.m. 15. MiraLAX 17 g daily p.r.n. 16. Simvastatin 80 mg daily. 17. Terazosin 5 mg a day. 18. Sodium chloride 75. ALLERGIES: Include PENICILLIN, TETANUS, KEFLEX and he gets a cough with COY INHIBITORS and COZAAR. FAMILY HISTORY: He has 1 older brother and one younger sister. The older brother had an abdominal aortic aneurysm repair. Sister has unknown cardiac issues. Mother at 93. Father at 73 with strokes and heart disease. SOCIAL HISTORY: He is , has 1 step child. 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 Denies alcohol use. REVIEW OF SYSTEMS: Review of systems x10 was negative except as above. PHYSICAL EXAM: He is a well-developed, well-nourished gentleman, obese, in no apparent distress. Peak temperature was 99.1 last night, currently 97.9; blood pressure 111/64; pulse 85; O2 sat is 95% on room air; weight 216 pounds. Atraumatic and normocephalic. No significant JVD. Carotids 2+ without bruits. No cervical lymphadenopathy, no thyromegaly. Cardiac Exam: S1 and S2 with a soft 1/6 holosystolic murmur at the lower sternal border and apex. Chest was clear. Abdomen: Obese, exam limited, no hepatosplenomegaly. Femoral pulses intact with a right femoral bruit under a large pannus. No significant edema on the right; there is 1+ edema on the left and mild calf tenderness. Distal pulses present. Motor strength 5/5 bilaterally. Deep tendon reflexes 2/4. Alert and oriented x3. Pulse at 85, blood pressure 111/64. DIAGNOSTIC STUDIES/LAB DATA: Labs include white count 8.2, hemoglobin of 9.2, hematocrit of 28, platelet count of of 136. Sodium 135, potassium 4.4, BUN of 47; creatinine of 2.5, down from 3.53 yesterday and up from 1.34 on 12/07/18 and 0.9 in June 2018. Troponin 1.47 yesterday, 1.18 yesterday at 2300, and 4.52 today at 0513. EKG from today; normal sinus rhythm with PVCs, poor R-wave progression, nonspecific IVCD with diffuse ST depressions; similar to the EKG of 12/12/18. The lateral ST changes are more pronounced and the QS widening is more pronounced compared to the previous of 06/04/18. IMPRESSION: My impression is that Mr. Soto has a history of ischemic cardiomyopathy, coronary artery disease, obesity, sleep apnea, diabetes, anemia , now with urinary tract infection and hypotension in the setting of sepsis as well as troponin elevation in the setting of chronic exertional angina. I suspect that this tronpon elevation/ekg changes are related to a demand event; however, I cannot exclude progression of his underlying coronary artery disease. I discussed this with him and Dr. Ji. Given his underlying infection and renal insufficiency, interventional options are high risk and limited. For the time being, I have recommended followin. I would continue his metoprolol and nitrates as tolerated. 2. We would try to transfuse to hematocrit over 30 since normally he runs hematocrits in the mid 30s. This may alleviate some of his ischemia. 3. We would be cautious about hydration. He has a tendency towards systolic and diastolic heart failure. 4. We will trend his troponins and EKGs. 5. If he continues to have ischemia or chest pain at rest, we may consider a repeat evaluation for ischemia with cardiac catheterization. 6. Over the skilled nursing, weight loss and regular amount of exercise are advised and this was discussed with the patient. 7. [facility], he may benefit from hydralazine and nitrates for his congestive heart failure. Options are limited given his intolerance of COY inhibitors and ARBs and his renal insufficiency. [id number]/[facility] [place] #: [id number] ADDENDUM: The patient was also noted to have some swelling of his left leg and some tenderness on his left calf raising possibility of a DVT. Given the asymmetric swelling, I discussed with the patient and Dr. Ji the possibility of a DVT: consider obtaining duplex scan for DVT. Anticoagulation is complicated on this patient given his anemia and potential need for intervention. I am also reluctant to stop his Plavix given his recent ischemia. However, if he has ongoing anemia or bleeding or needs a procedure, we may have to hold the Plavix to decrease the risk of bleeding. He would require 5 days off Plavix to eliminate the the plavix effect on platelet function [facility]
--- NOTE | 2018-12-13 15:27 | ECHO ---
*[facility]* [place] [address] Fax #: [phone] Transthoracic Echocardiogram Patient: Brittany, Height: 69 in / Nahum F 175.3 cm : 1945 Weight: 315.3 lb / Study Date: 12/13/2018 143.3 kg Age: 73 BP: 95 / 63 Gender: M BMI/BSA: 46.7 kg/m^2 HR: 69 bpm / 2.51 m^2 *General Office Assistant: * Jess Steele [facility] *Referring Physician: Rhoda Sarkar *Reading Physician: Ever Fam MD Indications: Abnormal EKG. History: Coronary artery disease. PMH: COPD exacerbation. Functional status: Following treatment plan for sleep apnea. Risk factors: Hypertension. Diabetes mellitus. Morbidly obese. Hyperlipidemia. Labs, prior tests, procedures, and surgery: Catheterization. There was a stenosis which was treated with a stent. Coronary artery bypass grafting. Conclusions Summary: 1. Left ventricle: Systolic function is moderately reduced. The estimated ejection fraction is 30-35%, by visual assessment. Systolic function is worse from the study of May 2018. 2. Right ventricle: The cavity size is moderately dilated. Wall thickness is mildly increased. Systolic function is moderately reduced. 3. Mitral valve: There is moderate regurgitation, directed eccentrically and toward the free wall. 4. Tricuspid valve: There is mild-moderate regurgitation. Study data: Transthoracic echocardiogram. Procedure: Transthoracic echocardiography was performed. Image quality was suboptimal. The study was technically limited due to body habitus. Intravenous contrast (Definity, 3 mls) was administered. By Ingrid Salgado RN. Complete 2D, spectral Doppler, and color flow Doppler. Location: Bedside. Patient status: Inpatient. Patient room number: 434. Comparison is made to the study of May 2018. Rhythm: Normal sinus rhythm with PVC's. Findings Left ventricle: The cavity size is mildly dilated. Wall thickness is mildly increased. Systolic function is moderately reduced. The estimated ejection fraction is 30-35%, by visual assessment. Systolic function is worse from the study of May 2018. Moderate diffuse hypokinesis. Features are consistent with a pseudonormal left ventricular filling pattern, with concomitant abnormal relaxation and increased filling pressure (grade 2 diastolic dysfunction). Right ventricle: The cavity size is moderately dilated. Wall thickness is mildly increased. Systolic function is moderately reduced. Systolic pressure is moderately increased. Ventricular septum: Postoperative hypokinesis of the interventricular septum is observed. Left atrium: The atrium is severely dilated. Right atrium: The atrium is severely dilated. Mitral valve: The annulus is calcified. The leaflets are mildly thickened. There is no evidence of stenosis. There is moderate regurgitation, directed eccentrically and toward the free wall. Eccentric laterally directed jet. The peak diastolic gradient is 3.8 mm Hg. Aortic valve: The valve is trileaflet. The leaflets are mildly thickened. Thickening, consistent with sclerosis. There is no evidence of stenosis. There is trivial regurgitation. The ratio of LVOT to aortic valve peak velocity is 0.68. The ratio of LVOT to aortic valve mean velocity is 0.71. The mean systolic gradient is 2.0 mm Hg. The peak systolic gradient is 5.0 mm Hg. Tricuspid valve: The leaflets are normal thickness. There is no evidence of stenosis. There is mild-moderate regurgitation. Pulmonic valve: The leaflets are normal thickness. There is no evidence of stenosis. There is mild regurgitation. The peak systolic gradient is 4.0 mm Hg. Aorta: Ascending aorta: The ascending aorta is appears normal. Aortic arch: The aortic arch is poorly visualized. The aortic root is not dilated. Pericardium: A prominent pericardial fat pad is present. There is no pericardial effusion. Pulmonary arteries: The main pulmonary artery is normal-sized. Systemic veins: Inferior vena cava: The vessel is dilated. The respirophasic diameter changes are blunted (< 50%). Measurements Left ventricle Value Ref Aortic valve Value Ref CARMELA, LAX (H) 6.2 cm 4.2 - 5.8 Nano diam, ED 2.1 cm ----- ESD, LAX (H) 5.4 cm 2.5 - 4.0 Peak v, S 1.07 m/sec ----- FS, LAX (L) 13 % 25 - 43 Mean v, S 0.73 m/sec ----- PW, ED, LAX (H) 1.3 cm 0.6 - 1.0 VTI, S 19.9 cm ----- CARMELA (H) 6.2 cm 4.2 - 5.8 Mean grad, S 2.0 mm Hg ----- ESD (H) 5.4 cm 2.5 - 4.0 Peak grad, S 5.0 mm Hg ----- FS (L) 13 % 25 - 43 PW, ED (H) 1.3 cm 0.6 - 1.0 Mitral valve Value Ref EF (L) 28 % 52 - 72 Peak E 0.98 m/sec ----- Mass (H) 394 g 96 - 200 Peak A 0.86 m/sec ----- Mass/bsa (H) 157 g/m^2 50 - 102 Decel time 165 ms ----- Mass/ht 224.68 g/m --------- Peak grad, D 3.8 mm Hg ----- Mass/ht^2.7 86.56 g/m^2.7 --------- Peak E/A ratio 1.1 ----- E', lat nano, TDI (L) 7.2 cm/sec >=10.0 MR alias velocity 0.29 m/sec --- -- E/e', lat nano, 14 --------- MR PISA radius 0.4 cm ----- TDI Max MR v 3.43 m/sec ----- E', med nano, TDI (L) 3.9 cm/sec >=7.0 Regurg VTI 89.6 cm --- -- E/e', med nano, 25 --------- ERO, PISA 0.09 cm^2 ----- TDI MR vol, PISA 8 ml ----- E', avg, TDI 5.6 cm/sec --------- E/e', avg, TDI (H) 18 <=14 Pulmonic valve Value Ref Peak v, S 0.95 m/sec ----- LVOT Value Ref Peak grad, S 4.0 mm Hg ----- Peak dana, S 0.72 m/sec --------- Mean dana, S 0.52 m/sec --------- Tricuspid valve Value Ref Mean grad, S 1 mm Hg --------- TR peak v (H) 3.22 m/sec <=2.8 Peak RV-RA grad, S 41 mm Hg ----- Ventricular septum Value Ref IVS, ED, LAX (H) 1.4 cm 0.6 - 1.0 Aortic root Value Ref IVS, ED (H) 1.4 cm 0.6 - 1.0 Root diam 3.3 cm <4.5 Right ventricle Value Ref Ascending aorta Value Ref CARMELA, LAX 4.0 cm --------- AAo AP diam, S 3.5 cm ----- CARMELA minor ax, A4C (H) 5.6 cm 1.9 - 3.5 mid Decending aorta Value Ref Pressure, S 41 mm Hg --------- Bridgette peak dana 0.78 m/sec ----- Left atrium Value Ref Pulmonary artery Value Ref AP dim, ES (H) 5.70 cm 3.00 - Pressure, S 37.0 mm Hg ----- 4.00 ML dim, A4C 5.3 cm --------- Inferior vena cava Value Ref SI dim, A4C 6.4 cm --------- Diam 3.3 cm ----- Vol/bsa, ES, 1-p (H) 43 ml/m^2 12 - 37 A4C Vol/bsa, ES, A/L (H) 62 ml/m^2 16 - 34 Right atrium Value Ref SI dim, ES (H) 6.1 cm 3.4 - 5.3 ML dim, ES, A4C (H) 5.0 cm 2.6 - 4.4 Estimated RAP 15 mm Hg --------- Legend: (L) and (H) regina values outside specified reference range. Prepared and electronically signed by Ever Sullivan MD 12/13/2018 15:27
[2018-12-13 15:29] LABS: Troponin I 8.33 ng/mL (<0.04)
[2018-12-13] MEDS: Morphine INJ* 2 MG/ML 1 ML SYRINGE (TWO MG - NEW SYRINGE VERSION) IV PRN ×2 (17:45→21:44)
[2018-12-13] MEDS: Terazosin CAP* 5 MG PO SCH (17:48)
[2018-12-13 19:46] LABS: Hematocrit 33 % (42-52); Hemoglobin 11.1 g/dL (14.0-18.0); Mean Corpuscular HGB Conc 34 g/dL (31-36); Mean Corpuscular Hemoglobin 29 pg (27-31); Mean Corpuscular Volume 87 fL (80-94); Mean Platelet Volume 8.3 fL (7.4-10.4); Platelet Count 169 10^3/uL (150-450); Red Blood Count 3.77 10^6 /uL (4.18-5.48); Red Cell Distribution Width 17 % (10.5-15); White Blood Count 9.2 10^3/uL (3.5-10.8)
[2018-12-13] MEDS ORDERED: Furosemide IV* 10 MG/ML VIAL (40 MG) IV ONE (20:26)
--- NOTE | 2018-12-13 20:35 | PN ---
Hospitalist Progress Note Date of Service: 12/13/18 Repeat Trop at 8 pm down to 4.30, post one unit of pRBC. Hct up to 33. Will not start heparin at this time as the patient still have severe bladder spasm and he had hematuria earlier today - I will continue his aspirin and plavix and metoprolol - Morphine prn for his bladder pain - I will place him on pirydium 200 mg tid - Urology consult at the request of the patient . I placed a call to Dr. Ambriz
[2018-12-13] MEDS: Phenazopyridine TAB* 100 MG PO SCH (21:19)
[2018-12-13] MEDS: CMCS: Simvastatin TAB(NF) 20 MG TAB PO SCH (21:19)
[2018-12-13] MEDS: Magnesium Oxide TAB* 400 MG PO SCH (21:20)
[2018-12-13] MEDS: Pantoprazole TAB * 40 MG TAB PO SCH (21:20)
--- NOTE | 2018-12-13 21:57 | PN ---
Progress Note - Progress Note Date of Service: 12/13/18 Note: Patient continues to c/o pain at perez site. Apparently he had a voiding trial today and failed and perez was reinserted. concerned. Will get US to make sure perez is in bladder and not in prostatic urethra.
[2018-12-14] MEDS: Acetaminophen TAB* 325 MG PO PRN (00:46)
[2018-12-14] MEDS: Oxybutynin TAB* 5 MG PO PRN ×4 (00:47→21:21)
[2018-12-14] MEDS: Morphine INJ* 2 MG/ML 1 ML SYRINGE (TWO MG - NEW SYRINGE VERSION) IV PRN ×3 (02:15→12:38)
[2018-12-14] MEDS: Heparin VIAL(*) 5000 UNITS/ML VIAL (FIVE THOUSAND) SUBCUT SCH ×3 (05:50→21:22)
[2018-12-14] MEDS: Insulin GLARGINE(*) 1 UNITS UNIT SUBCUT SCH ×2 (05:51→17:48)
[2018-12-14 06:12] LABS: ABS Basophils 0.1 10^3/ul (0-0.2); ABS Lymphocytes 0.8 10^3/ul (1.0-4.8); ABS Monocytes 0.8 10^3/ul (0-0.8); ABS Neutrophils 8.4 10^3/ul (1.5-7.7); Eosinophil % 0.2 %; Hematocrit 32 % (42-52); Hemoglobin 10.5 g/dL (14.0-18.0); Lymphocyte % 8.3 %; Mean Corpuscular HGB Conc 33 g/dL (31-36); Mean Corpuscular Hemoglobin 29 pg (27-31); Mean Corpuscular Volume 87 fL (80-94); Mean Platelet Volume 8.8 fL (7.4-10.4); Platelet Count 184 10^3/uL (150-450); Red Cell Distribution Width 17 % (10.5-15); White Blood Count 10.1 10^3/uL (3.5-10.8)
[2018-12-14 06:38] LABS: Albumin 3.2 g/dL (3.2-5.2); Albumin/Globulin Ratio 0.8 (1-3); BUN/Creatinine Ratio 23.2 (8-20); Calcium 8.7 mg/dL (8.6-10.3); EGFR African American 44.7 (>60); EGFR Non-African American 36.9 (>60); Indirect Bilirubin 0.5 mg/dL (0.3-1.0); Magnesium 1.6 mg/dL (1.9-2.7); Phosphorus 3.4 mg/dL (2.5-5.0); Potassium 4.7 mmol/L (3.5-5.0); Total Bilirubin 0.7 mg/dL (0.2-1.0); Total Protein 7.2 g/dL (6.4-8.9)
[2018-12-14] MEDS: Meropenem 1 GM PREMIX(*) 1 GM/50 ML BAG IV SCH ×2 (07:49→19:36)
[2018-12-14] MEDS: Phenazopyridine TAB* 100 MG PO SCH ×2 (08:57→14:58)
[2018-12-14] MEDS: Clopidogrel TAB* 75 MG PO SCH (08:58)
[2018-12-14] MEDS: Aspirin EC TAB* 81 MG TAB.EC PO SCH (08:58)
[2018-12-14] MEDS: Montelukast Sodium TAB* 10 MG PO SCH (08:58)
[2018-12-14] MEDS: Pantoprazole TAB * 40 MG TAB PO SCH ×2 (08:58→20:21)
[2018-12-14] MEDS: Metoprolol Tartrate TAB* 50 mg PO SCH ×2 (09:00→17:52)
[2018-12-14] MEDS: Insulin LISPRO* 1 UNITS UNIT SUBCUT SCH ×4 (09:01→20:19)
--- NOTE | 2018-12-14 17:32 | PN ---
Subjective Date of Service: 12/14/18 Interval History: Patient seen this morning with the at bedside. I spend over 30 minutes with the patient and explaining the pathology of his UTI and possible prostatitis. I explained that the Perera is in good position and he is draining well. The focus on pain control and control of his bladder spasm. All of their questioned were answered to the best of my ability and to the satisfaction of both the patient and his . Social History: Unchanged from Admission Past Medical History: Unchanged from Admission Objective Active Medications: Acetaminophen (Tylenol Tab*) 650 mg PO Q4H PRN PRN Reason: FEVER/PAIN Last Admin: 12/14/18 00:46 Dose: 650 mg Al Hydrox/Mg Hydrox/Simethicone (Maalox Plus*) 30 ml PO Q6H PRN PRN Reason: INDIGESTION Albuterol (Ventolin Hfa Inhaler*) 1 puff INH Q4H PRN PRN Reason: SOB/WHEEZING Aspirin (Aspirin Ec Tab*) 81 mg PO DAILY [facility] Last Admin: 12/14/18 08:58 Dose: 81 mg Clopidogrel Bisulfate (Plavix Tab*) 75 mg PO DAILY [facility] Last Admin: 12/14/18 08:58 Dose: 75 mg Dextrose (D50w Syringe 50 Ml*) 12.5 gm IV PUSH .FOR FS < 60 - SS PRN PRN Reason: FS < 60 Fluticasone Propionate (Flonase Nasal [place] 50mcg*) 1 spray BOTH NARES QAM PRN PRN Reason: CONGESTION Heparin Sodium (Porcine) (Heparin Vial(*)) 5,000 units SUBCUT Q8HR [facility] Last Admin: 12/14/18 14:59 Dose: 5,000 units Meropenem (Merrem 1 Gm Premix(*)) 1 gm in 50 mls @ 100 mls/hr IV 0800,2000 [facility] Last Admin: 12/14/18 07:49 Dose: 100 mls/hr Insulin Glargine (Lantus(*)) 20 units SUBCUT Q12H [facility] Last Admin: 12/14/18 05:51 Dose: 20 units Insulin Human Lispro (Humalog*) 0 units SUBCUT ACHS [facility]; Protocol Last Admin: 12/14/18 12:38 Dose: 2 units Magnesium Hydroxide (Milk Of Magnesia Liq*) 30 ml PO Q6H PRN PRN Reason: CONSTIPATION Magnesium Oxide (Magox 400 Tab*) 800 mg PO BEDTIME [facility] Last Admin: 12/13/18 21:20 Dose: 800 mg Metoprolol Tartrate (Lopressor Tab*) 50 mg PO 0800,1830 [facility] Last Admin: 12/14/18 09:00 Dose: 50 mg Montelukast Sodium (Singulair Tab*) 10 mg PO DAILY [facility] Last Admin: 12/14/18 08:58 Dose: 10 mg Morphine Sulfate (Morphine Inj (Syringe))*) 2 mg IV Q4H PRN PRN Reason: PAIN - MILD Last Admin: 12/14/18 12:38 Dose: 2 mg Oxybutynin Chloride (Ditropan Tab*) 5 mg PO Q6H PRN PRN Reason: SPASMS Last Admin: 12/14/18 14:58 Dose: 5 mg Pantoprazole Sodium (Protonix Tab*) 40 mg PO BID [facility] Last Admin: 12/14/18 08:58 Dose: 40 mg Phenazopyridine HCl (Pyridium Tab*) 200 mg PO ONCE ONE Stop: 12/14/18 22:01 Polyethylene Glycol/Electrolytes (Miralax*) 17 gm PO DAILY PRN PRN Reason: CONSTIPATION Last Admin: 12/13/18 04:30 Dose: 17 gm Simvastatin (Zocor(Nf)) 80 mg PO 2100 [facility] Last Admin: 12/13/18 21:19 Dose: 80 mg Terazosin HCl (Hytrin Cap*) 5 mg PO QPM [facility] Last Admin: 12/13/18 17:48 Dose: 5 mg Vital Signs - 8 hr 12/14/18 12/14/18 12/14/18 12:01 12:38 14:59 Temperature 98.7 F Pulse Rate 87 Respiratory 24 18 18 Rate Blood Pressure 105/70 (mmHg) O2 Sat by Pulse 95 Oximetry 12/14/18 12/14/18 15:32 16:02 Temperature 98.3 F Pulse Rate 87 Respiratory 20 Rate Blood Pressure 113/63 (mmHg) O2 Sat by Pulse 96 94 Oximetry Oxygen Devices in Use Now: Nasal Cannula Appearance: Awake, remains in mild distress from his pain. hematuria resolved Eyes: No Scleral Icterus, - - EOMI Ears/Nose/Mouth/Throat: NL Teeth, Lips, Gums, Mucous Membranes Moist Neck: NL Appearance and Movements; NL JVP Respiratory: Symmetrical Chest Expansion and Respiratory Effort, Clear to Auscultation Cardiovascular: NL Sounds; No Murmurs; No JVD Abdominal: NL Sounds; No Tenderness; No Distention, - - suprapubic tenderness Extremities: - - edema Neurological: Alert and Oriented x 3 Result Diagrams: 12/14/18 05:24 12/14/18 05:24 Microbiology and Other Data: Microbiology 12/12/18 15:51 Aerobic Blood Culture - Preliminary Blood Venous No Growth Day 2 Anaerobic Blood Culture - Preliminary No Growth Day 2 12/12/18 15:10 Aerobic Blood Culture - Preliminary Blood Venous No Growth Day 2 Anaerobic Blood Culture - Preliminary No Growth Day 2 12/12/18 15:10 Urine Culture - Final Urine Esbl Escherichia Coli Assess/Plan/Problems-Billing Assessment: 73 y/o morbid obese male with known history of Extensive CAD (S/p CABG x 2, PTCA ); CHA, Diastolic Heart failure, DM presented to the ER on 12/12/18 for FLASH and hypotension (SBP 70's s/p 3 liters fluid resuscitations) and UTI (failed outpatient Cipro) found to have NQMI with today peaked am Trop of 4.52 - Patient Problems (1) Sepsis secondary to UTI Current Visit: Yes Status: Acute Code(s): A41.9 - SEPSIS, UNSPECIFIED ORGANISM; N39.0 - URINARY TRACT INFECTION, SITE NOT SPECIFIED SNOMED Code(s): 158136052 Comment: - UC from 12/11/18 revealed E-coli. Failed outpatient Cipro as it was ESBL - Currently on Merropenem 1 gm IV Q12 Day # 3. - UA from 12/12/18 positive for UTI. Cultures came back as well ESBL. Will continue merropenem - US of right kidney shows 2.8 cm without hydronephrosis. Will need urology referral as outpatient but nothing acute at this time. (2) Bladder spasm Current Visit: Yes Status: Acute Comment: - Started pyridium 200 mg tid - Oxybutunin 5 mg Q 6hr PRN - Morphine prn pain - Tonight I will give him one dose of valium 5 mg (hold morphine tonight if we can to avoid hypotension) (3) Non Q wave myocardial infarction Current Visit: Yes Status: Acute Code(s): I21.4 - NON-ST ELEVATION (NSTEMI) MYOCARDIAL INFARCTION SNOMED Code(s): 855470145 Comment: - Trop peaked at 8.33 and dropped down to 4.5 post transfusion - Given his EKG changes and elevated troponin, I did ask cardiology (Dr. Sullivan to evaluate patient), - Currently on apsirin 81 mg daily, Plavix 75 mg daily, Lopressor 50 mg bid, Zocor 80 mg HS. (4) CAD (coronary artery disease) Current Visit: Yes Status: Acute Code(s): I25.10 - ATHSCL HEART DISEASE OF [place] CORONARY ARTERY W/O ANG PCTRS SNOMED Code(s): 14063471 Comment: - Trop peaked at 8.33 and dropped down to 4.5 post transfusion - Given his EKG changes and elevated troponin, I did ask cardiology (Dr. Sullivan to evaluate patient), - Currently on apsirin 81 mg daily, Plavix 75 mg daily, Lopressor 50 mg bid, Zocor 80 mg HS. (5) Diastolic heart failure Current Visit: No Status: Acute Code(s): I50.30 - UNSPECIFIED DIASTOLIC ( CONGESTIVE) HEART FAILURE SNOMED Code(s): 782052853 Comment: - Mixed systollic and diastollic heart failure - Last EF 05/31/2018 EF 35-40% - His home lasix 20 mg daily was held on admission due to hypotensions. - s/p lasix 20 mg and 40 mg on 12/13/18 with good urine output. - I will keep his spironolactone on hold for now - I will give one dose lasix 20 mg tomorrow will resume his lasix po afterward. Remains off IVF (6) Anemia Current Visit: Yes Status: Acute Code(s): D64.9 - ANEMIA, UNSPECIFIED SNOMED Code(s): 898805873 Comment: - Given his NQMI and progressive decline in his Hct from 12/07/18 most of it could be dilutional but he does have history of PUD and Hx of GI bleed in the past - I did implement cardiology recommendaiton and I transfused one units, and will keep him on PPI bid. (7) GERD (gastroesophageal reflux disease) Current Visit: No Status: Chronic Priority: Low Code(s): K21.9 - GASTRO- ESOPHAGEAL REFLUX DISEASE WITHOUT ESOPHAGITIS SNOMED Code(s): 272380289 Comment: - continue pantoprazole (8) Diabetes mellitus Current Visit: No Status: Acute Code(s): E11.9 - TYPE 2 DIABETES MELLITUS WITHOUT COMPLICATIONS SNOMED Code(s): 72367810 Comment: - Lantus 12 units with SS (9) CHA (obstructive sleep apnea) Current Visit: Yes Status: Acute Code(s): G47.33 - OBSTRUCTIVE SLEEP APNEA ( ADULT) (PEDIATRIC) SNOMED Code(s): 15820294 (10) Leg edema, left Current Visit: Yes Status: Acute Code(s): R60.0 - LOCALIZED EDEMA SNOMED Code(s): 699539089 Comment: - US rule out DVT Questionable DVT off the perioneal vein - Given his recent hematuria and anemia I will hold off on anticoagulation as it is low risk for propagatioins. - Once he is more stable and less discomfort and H/H stable I will revisit possible oral short course anticoagulations (11) DVT prophylaxis Current Visit: No Status: Acute Code(s): TZJ0609 - SNOMED Code(s): 306242953 Comment: HSQ Status and Disposition: inpt
[2018-12-14] MEDS: Terazosin CAP* 5 MG PO SCH (17:52)
[2018-12-14] MEDS: CMCS: Simvastatin TAB(NF) 20 MG TAB PO SCH (20:21)
[2018-12-14] MEDS: Magnesium Oxide TAB* 400 MG PO SCH (21:21)
[2018-12-14] MEDS ORDERED: Diazepam TAB(*) 5 MG PO ONE (22:00)
[2018-12-14] MEDS ORDERED: Phenazopyridine TAB* 100 MG PO ONE (22:00)
[2018-12-15] MEDS: Heparin VIAL(*) 5000 UNITS/ML VIAL (FIVE THOUSAND) SUBCUT SCH ×3 (05:27→21:57)
[2018-12-15] MEDS: Insulin GLARGINE(*) 1 UNITS UNIT SUBCUT SCH ×2 (05:27→17:53)
[2018-12-15 06:23] LABS: BUN/Creatinine Ratio 25.6 (8-20); Calcium 8.7 mg/dL (8.6-10.3); EGFR African American 39.1 (>60); EGFR Non-African American 32.4 (>60); Magnesium 1.8 mg/dL (1.9-2.7); Phosphorus 3.7 mg/dL (2.5-5.0); Potassium 4.9 mmol/L (3.5-5.0)
[2018-12-15 06:53] LABS: ABS Eosinophils 0.2 10^3/ul (0-0.6); ABS Lymphocytes 1.1 10^3/ul (1.0-4.8); ABS Monocytes 0.9 10^3/ul (0-0.8); ABS Neutrophils 7.8 10^3/ul (1.5-7.7); Eosinophil % 2.1 %; Hematocrit 30 % (42-52); Hemoglobin 10.1 g/dL (14.0-18.0); Lymphocyte % 11.3 %; Mean Corpuscular HGB Conc 33 g/dL (31-36); Mean Corpuscular Hemoglobin 29 pg (27-31); Mean Corpuscular Volume 86 fL (80-94); Platelet Count 200 10^3/uL (150-450); Red Blood Count 3.51 10^6 /uL (4.18-5.48); Red Cell Distribution Width 17 % (10.5-15); White Blood Count 10.1 10^3/uL (3.5-10.8)
[2018-12-15] MEDS: Morphine INJ* 2 MG/ML 1 ML SYRINGE (TWO MG - NEW SYRINGE VERSION) IV PRN (09:05)
[2018-12-15] MEDS: Insulin LISPRO* 1 UNITS UNIT SUBCUT SCH ×4 (09:06→21:57)
[2018-12-15] MEDS: Meropenem 1 GM PREMIX(*) 1 GM/50 ML BAG IV SCH ×2 (09:06→20:49)
[2018-12-15] MEDS: Aspirin EC TAB* 81 MG TAB.EC PO SCH (09:13)
[2018-12-15] MEDS: Metoprolol Tartrate TAB* 50 mg PO SCH ×2 (09:13→17:54)
[2018-12-15] MEDS: Montelukast Sodium TAB* 10 MG PO SCH (09:14)
[2018-12-15] MEDS: Pantoprazole TAB * 40 MG TAB PO SCH ×2 (09:14→20:59)
[2018-12-15] MEDS: Clopidogrel TAB* 75 MG PO SCH (09:14)
[2018-12-15] MEDS: Oxybutynin TAB* 5 MG PO PRN ×2 (09:14→17:54)
[2018-12-15] MEDS ORDERED: Furosemide IV* 10 MG/ML VIAL (40 MG) IV ONE (16:48)
--- NOTE | 2018-12-15 16:51 | PN ---
Subjective Date of Service: 12/15/18 Interval History: Patient seen today, doing better. still have tinged blood in his urine catheter. no acute events. tolerating his prn Morphine and oxybutnin well. he is done with the pyridium for now. tolerated his Valium last night well. Social History: Unchanged from Admission Past Medical History: Unchanged from Admission Objective Active Medications: Acetaminophen (Tylenol Tab*) 650 mg PO Q4H PRN PRN Reason: FEVER/PAIN Last Admin: 12/14/18 00:46 Dose: 650 mg Al Hydrox/Mg Hydrox/Simethicone (Maalox Plus*) 30 ml PO Q6H PRN PRN Reason: INDIGESTION Albuterol (Ventolin Hfa Inhaler*) 1 puff INH Q4H PRN PRN Reason: SOB/WHEEZING Aspirin (Aspirin Ec Tab*) 81 mg PO DAILY [facility] Last Admin: 12/15/18 09:13 Dose: 81 mg Clopidogrel Bisulfate (Plavix Tab*) 75 mg PO DAILY [facility] Last Admin: 12/15/18 09:14 Dose: 75 mg Dextrose (D50w Syringe 50 Ml*) 12.5 gm IV PUSH .FOR FS < 60 - SS PRN PRN Reason: FS < 60 Fluticasone Propionate (Flonase Nasal [place] 50mcg*) 1 spray BOTH NARES QAM PRN PRN Reason: CONGESTION Heparin Sodium (Porcine) (Heparin Vial(*)) 5,000 units SUBCUT Q8HR [facility] Last Admin: 12/15/18 14:15 Dose: 5,000 units Meropenem (Merrem 1 Gm Premix(*)) 1 gm in 50 mls @ 100 mls/hr IV 0800,2000 [facility] Last Admin: 12/15/18 09:06 Dose: 100 mls/hr Insulin Glargine (Lantus(*)) 20 units SUBCUT Q12H [facility] Last Admin: 12/15/18 05:27 Dose: 20 units Insulin Human Lispro (Humalog*) 0 units SUBCUT ACHS [facility]; Protocol Last Admin: 12/15/18 14:14 Dose: 2 units Magnesium Hydroxide (Milk Of Magnesia Liq*) 30 ml PO Q6H PRN PRN Reason: CONSTIPATION Magnesium Oxide (Magox 400 Tab*) 800 mg PO BEDTIME [facility] Last Admin: 12/14/18 21:21 Dose: 800 mg Metoprolol Tartrate (Lopressor Tab*) 50 mg PO 0800,1830 [facility] Last Admin: 12/15/18 09:13 Dose: 50 mg Montelukast Sodium (Singulair Tab*) 10 mg PO DAILY [facility] Last Admin: 12/15/18 09:14 Dose: 10 mg Morphine Sulfate (Morphine Inj (Syringe))*) 2 mg IV Q4H PRN PRN Reason: PAIN - MILD Last Admin: 12/15/18 09:05 Dose: 2 mg Oxybutynin Chloride (Ditropan Tab*) 5 mg PO Q6H PRN PRN Reason: SPASMS Last Admin: 12/15/18 09:14 Dose: 5 mg Pantoprazole Sodium (Protonix Tab*) 40 mg PO BID [facility] Last Admin: 12/15/18 09:14 Dose: 40 mg Polyethylene Glycol/Electrolytes (Miralax*) 17 gm PO DAILY PRN PRN Reason: CONSTIPATION Last Admin: 12/13/18 04:30 Dose: 17 gm Simvastatin (Zocor(Nf)) 80 mg PO 2100 [facility] Last Admin: 12/14/18 20:21 Dose: 80 mg Terazosin HCl (Hytrin Cap*) 5 mg PO QPM [facility] Last Admin: 12/14/18 17:52 Dose: 5 mg Vital Signs - 8 hr 12/15/18 12/15/18 12/15/18 09:05 09:15 11:12 Temperature 97.5 F Pulse Rate 87 Respiratory 18 18 22 Rate Blood Pressure 91/64 (mmHg) O2 Sat by Pulse 96 97 Oximetry 12/15/18 11:56 Temperature Pulse Rate Respiratory 14 Rate Blood Pressure (mmHg) O2 Sat by Pulse Oximetry Oxygen Devices in Use Now: Nasal Cannula Appearance: Awake, alert. mild discomfort but better than yesterday Eyes: No Scleral Icterus Ears/Nose/Mouth/Throat: NL Teeth, Lips, Gums Neck: NL Appearance and Movements; NL JVP Respiratory: Symmetrical Chest Expansion and Respiratory Effort, - - fine expiratory wheezes and bibasilar rales Cardiovascular: - - + edema Abdominal: NL Sounds; No Tenderness; No Distention Neurological: Alert and Oriented x 3 Result Diagrams: 12/15/18 05:57 12/15/18 05:57 Microbiology and Other Data: Microbiology 12/12/18 15:51 Aerobic Blood Culture - Preliminary Blood Venous No Growth Day 2 Anaerobic Blood Culture - Preliminary No Growth Day 2 12/12/18 15:10 Aerobic Blood Culture - Preliminary Blood Venous No Growth Day 2 Anaerobic Blood Culture - Preliminary No Growth Day 2 12/12/18 15:10 Urine Culture - Final Urine Esbl Escherichia Coli Assess/Plan/Problems-Billing Assessment: 73 y/o morbid obese male with known history of Extensive CAD (S/p CABG x 2, PTCA ); CHA, Diastolic Heart failure, DM presented to the ER on 12/12/18 for FLASH and hypotension (SBP 70's s/p 3 liters fluid resuscitations) and UTI (failed outpatient Cipro) found to have NQMI with today peaked am Trop of 4.52 - Patient Problems (1) Sepsis secondary to UTI Current Visit: Yes Status: Acute Code(s): A41.9 - SEPSIS, UNSPECIFIED ORGANISM; N39.0 - URINARY TRACT INFECTION, SITE NOT SPECIFIED SNOMED Code(s): 951272786 Comment: - UC from 12/11/18 revealed E-coli. Failed outpatient Cipro as it was ESBL - Currently on Merropenem 1 gm IV Q12 Day # 11/12. - UA from 12/12/18 positive for UTI. Cultures came back as well ESBL. Will continue merropenem - US of right kidney shows 2.8 cm without hydronephrosis. Will need urology referral as outpatient but nothing acute at this time. - I doubt it is prostatitis as his PSA was normal. (2) Bladder spasm Current Visit: Yes Status: Acute Comment: - Started pyridium 200 mg tid completed course - Oxybutunin 5 mg Q 6hr PRN - Morphine prn pain - I will give him one dose of valium 5 mg again tongiht (hold morphine tonight if we can to avoid hypotension) (3) Non Q wave myocardial infarction Current Visit: Yes Status: Acute Code(s): I21.4 - NON-ST ELEVATION (NSTEMI) MYOCARDIAL INFARCTION SNOMED Code(s): 653554394 Comment: - Trop peaked at 8.33 and dropped down to 4.5 post transfusion - Given his EKG changes and elevated troponin, I did ask cardiology (Dr. Sullivan to evaluate patient), - Currently on apsirin 81 mg daily, Plavix 75 mg daily, Lopressor 50 mg bid, Zocor 80 mg HS. (4) CAD (coronary artery disease) Current Visit: Yes Status: Acute Code(s): I25.10 - ATHSCL HEART DISEASE OF [place] CORONARY ARTERY W/O ANG PCTRS SNOMED Code(s): 33420205 Comment: - Trop peaked at 8.33 and dropped down to 4.5 post transfusion - Given his EKG changes and elevated troponin, I did ask cardiology (Dr. Sullivan to evaluate patient), - Currently on apsirin 81 mg daily, Plavix 75 mg daily, Lopressor 50 mg bid, Zocor 80 mg HS. (5) Diastolic heart failure Current Visit: No Status: Acute Code(s): I50.30 - UNSPECIFIED DIASTOLIC ( CONGESTIVE) HEART FAILURE SNOMED Code(s): 450236801 Comment: - Mixed systollic and diastollic heart failure - Last EF 05/31/2018 EF 35-40% - His home lasix 20 mg daily was held on admission due to hypotensions. - s/p lasix 20 mg and 40 mg on 12/13/18 with good urine output. - I will keep his spironolactone on hold for now - I will give one dose lasix 20 mg tomorrow will resume his lasix po afterward. Remains off IVF (6) Anemia Current Visit: Yes Status: Acute Code(s): D64.9 - ANEMIA, UNSPECIFIED SNOMED Code(s): 676877684 Comment: - Given his NQMI and progressive decline in his Hct from 12/07/18 most of it could be dilutional but he does have history of PUD and Hx of GI bleed in the past - I did implement cardiology recommendaiton and I transfused one units, and will keep him on PPI bid. (7) GERD (gastroesophageal reflux disease) Current Visit: No Status: Chronic Priority: Low Code(s): K21.9 - GASTRO- ESOPHAGEAL REFLUX DISEASE WITHOUT ESOPHAGITIS SNOMED Code(s): 126988539 Comment: - continue pantoprazole (8) Diabetes mellitus Current Visit: No Status: Acute Code(s): E11.9 - TYPE 2 DIABETES MELLITUS WITHOUT COMPLICATIONS SNOMED Code(s): 10740488 Comment: - Lantus 12 units with SS (9) CHA (obstructive sleep apnea) Current Visit: Yes Status: Acute Code(s): G47.33 - OBSTRUCTIVE SLEEP APNEA ( ADULT) (PEDIATRIC) SNOMED Code(s): 66658980 (10) Leg edema, left Current Visit: Yes Status: Acute Code(s): R60.0 - LOCALIZED EDEMA SNOMED Code(s): 916593765 Comment: - US rule out DVT Questionable DVT off the perioneal vein - Given his recent hematuria and anemia I will hold off on anticoagulation as it is low risk for propagations. - Once he is more stable and less discomfort and H/H stable I will revisit possible oral short course anticoagulations (11) DVT prophylaxis Current Visit: No Status: Acute Code(s): PPZ6171 - SNOMED Code(s): 851575141 Comment: HSQ Status and Disposition: inpt
[2018-12-15] MEDS: Terazosin CAP* 5 MG PO SCH (17:54)
[2018-12-15] MEDS: CMCS: Simvastatin TAB(NF) 20 MG TAB PO SCH (20:58)
[2018-12-15] MEDS: Magnesium Oxide TAB* 400 MG PO SCH (20:59)
[2018-12-15] MEDS ORDERED: Diazepam TAB(*) 5 MG PO ONE (22:00)
[2018-12-16] MEDS: Heparin VIAL(*) 5000 UNITS/ML VIAL (FIVE THOUSAND) SUBCUT SCH ×3 (05:46→21:04)
[2018-12-16] MEDS: Insulin GLARGINE(*) 1 UNITS UNIT SUBCUT SCH ×2 (05:48→18:45)
[2018-12-16] MEDS: Meropenem 1 GM PREMIX(*) 1 GM/50 ML BAG IV SCH ×2 (07:56→19:57)
[2018-12-16] MEDS: Insulin LISPRO* 1 UNITS UNIT SUBCUT SCH ×4 (08:07→21:39)
[2018-12-16] MEDS: Clopidogrel TAB* 75 MG PO SCH (08:08)
[2018-12-16] MEDS: Aspirin EC TAB* 81 MG TAB.EC PO SCH (08:08)
[2018-12-16] MEDS: Montelukast Sodium TAB* 10 MG PO SCH (08:08)
[2018-12-16] MEDS: Pantoprazole TAB * 40 MG TAB PO SCH ×2 (08:08→21:07)
[2018-12-16 08:39] LABS: ABS Eosinophils 0.5 10^3/ul (0-0.6); ABS Lymphocytes 1.1 10^3/ul (1.0-4.8); ABS Monocytes 0.8 10^3/ul (0-0.8); ABS Neutrophils 5.9 10^3/ul (1.5-7.7); Hematocrit 31 % (42-52); Hemoglobin 10.4 g/dL (14.0-18.0); Lymphocyte % 12.6 %; Mean Corpuscular HGB Conc 33 g/dL (31-36); Mean Corpuscular Hemoglobin 29 pg (27-31); Mean Corpuscular Volume 88 fL (80-94); Mean Platelet Volume 8.8 fL (7.4-10.4); Platelet Count 231 10^3/uL (150-450); Red Blood Count 3.54 10^6 /uL (4.18-5.48); Red Cell Distribution Width 17 % (10.5-15); White Blood Count 8.3 10^3/uL (3.5-10.8)
[2018-12-16 09:02] LABS: BUN/Creatinine Ratio 29.9 (8-20); EGFR African American 50.1 (>60); EGFR Non-African American 41.4 (>60); Magnesium 1.8 mg/dL (1.9-2.7); Phosphorus 3.7 mg/dL (2.5-5.0); Potassium 4.6 mmol/L (3.5-5.0)
[2018-12-16] MEDS: Metoprolol Tartrate TAB* 50 mg PO SCH ×2 (10:14→20:08)
[2018-12-16] MEDS: Furosemide TAB* 20 MG PO SCH (14:40)
--- NOTE | 2018-12-16 16:51 | PN ---
Subjective Date of Service: 12/16/18 Interval History: Patient seen today still complaining of severe pain form his perez catheter. voiding well with his perez. taking fluid well. He was asking repeatdly to have the catheter removed. he has not been able to have bowel movement due to his catheter. Social History: Unchanged from Admission Past Medical History: Unchanged from Admission Objective Active Medications: Acetaminophen (Tylenol Tab*) 650 mg PO Q4H PRN PRN Reason: FEVER/PAIN Last Admin: 12/14/18 00:46 Dose: 650 mg Al Hydrox/Mg Hydrox/Simethicone (Maalox Plus*) 30 ml PO Q6H PRN PRN Reason: INDIGESTION Albuterol (Ventolin Hfa Inhaler*) 1 puff INH Q4H PRN PRN Reason: SOB/WHEEZING Aspirin (Aspirin Ec Tab*) 81 mg PO DAILY [facility] Last Admin: 12/16/18 08:08 Dose: 81 mg Clopidogrel Bisulfate (Plavix Tab*) 75 mg PO DAILY [facility] Last Admin: 12/16/18 08:08 Dose: 75 mg Dextrose (D50w Syringe 50 Ml*) 12.5 gm IV PUSH .FOR FS < 60 - SS PRN PRN Reason: FS < 60 Fluticasone Propionate (Flonase Nasal [place] 50mcg*) 1 spray BOTH NARES QAM PRN PRN Reason: CONGESTION Furosemide (Lasix Tab*) 20 mg PO DAILY [facility] Last Admin: 12/16/18 14:40 Dose: 20 mg Heparin Sodium (Porcine) (Heparin Vial(*)) 5,000 units SUBCUT Q8HR [facility] Last Admin: 12/16/18 14:40 Dose: 5,000 units Meropenem (Merrem 1 Gm Premix(*)) 1 gm in 50 mls @ 100 mls/hr IV 0800,2000 [facility] Last Admin: 12/16/18 07:56 Dose: 100 mls/hr Insulin Glargine (Lantus(*)) 20 units SUBCUT Q12H [facility] Last Admin: 12/16/18 05:48 Dose: 20 units Insulin Human Lispro (Humalog*) 0 units SUBCUT ACHS [facility]; Protocol Last Admin: 12/16/18 12:15 Dose: 2 units Magnesium Hydroxide (Milk Of Magnesia Liq*) 30 ml PO Q6H PRN PRN Reason: CONSTIPATION Magnesium Oxide (Magox 400 Tab*) 800 mg PO BEDTIME [facility] Last Admin: 12/15/18 20:59 Dose: 800 mg Metoprolol Tartrate (Lopressor Tab*) 50 mg PO 0800,1830 [facility] Last Admin: 12/16/18 10:14 Dose: 50 mg Montelukast Sodium (Singulair Tab*) 10 mg PO DAILY [facility] Last Admin: 12/16/18 08:08 Dose: 10 mg Oxybutynin Chloride (Ditropan Tab*) 5 mg PO Q6H PRN PRN Reason: SPASMS Last Admin: 12/15/18 17:54 Dose: 5 mg Pantoprazole Sodium (Protonix Tab*) 40 mg PO BID [facility] Last Admin: 12/16/18 08:08 Dose: 40 mg Polyethylene Glycol/Electrolytes (Miralax*) 17 gm PO DAILY PRN PRN Reason: CONSTIPATION Last Admin: 12/13/18 04:30 Dose: 17 gm Simvastatin (Zocor(Nf)) 80 mg PO 2100 [facility] Last Admin: 12/15/18 20:58 Dose: 80 mg Terazosin HCl (Hytrin Cap*) 5 mg PO QPM [facility] Last Admin: 12/15/18 17:54 Dose: 5 mg Oxygen Devices in Use Now: Nasal Cannula Appearance: awake, alert. no distress Eyes: No Scleral Icterus, - - EOMI Ears/Nose/Mouth/Throat: NL Teeth, Lips, Gums Neck: NL Appearance and Movements; NL JVP, Trachea Midline Respiratory: Symmetrical Chest Expansion and Respiratory Effort, Clear to Auscultation Cardiovascular: NL Sounds; No Murmurs; No JVD, RRR Abdominal: NL Sounds; No Tenderness; No Distention, - - Obese Extremities: - - Edema Neurological: Alert and Oriented x 3 Result Diagrams: 12/16/18 07:35 12/16/18 07:35 Microbiology and Other Data: Microbiology 12/12/18 15:51 Aerobic Blood Culture - Preliminary Blood Venous No Growth Day 2 Anaerobic Blood Culture - Preliminary No Growth Day 2 12/12/18 15:10 Aerobic Blood Culture - Preliminary Blood Venous No Growth Day 2 Anaerobic Blood Culture - Preliminary No Growth Day 2 12/12/18 15:10 Urine Culture - Final Urine Esbl Escherichia Coli Assess/Plan/Problems-Billing Assessment: 73 y/o morbid obese male with known history of Extensive CAD (S/p CABG x 2, PTCA ); CHA, Diastolic Heart failure, DM presented to the ER on 12/12/18 for FLASH and hypotension (SBP 70's s/p 3 liters fluid resuscitations) and UTI (failed outpatient Cipro) found to have NQMI with today peaked am Trop of 4.52 - Patient Problems (1) Sepsis secondary to UTI Current Visit: Yes Status: Acute Code(s): A41.9 - SEPSIS, UNSPECIFIED ORGANISM; N39.0 - URINARY TRACT INFECTION, SITE NOT SPECIFIED SNOMED Code(s): 588697897 Comment: - UC from 12/11/18 revealed E-coli. Failed outpatient Cipro as it was ESBL - Currently on Merropenem 1 gm IV Q12 Day # 12/12. - UA from 12/12/18 positive for UTI. Cultures came back as well ESBL. Will continue merropenem - US of right kidney shows 2.8 cm without hydronephrosis. Will need urology referral as outpatient but nothing acute at this time. - I doubt it is prostatitis as his PSA was normal. - Catheter removed today (at the patient request). Monitor output. avoid reinsertion if possible. Patient insisting on having removed again - I ordered repeat UA and UC (2) Bladder spasm Current Visit: Yes Status: Acute Comment: - Started pyridium 200 mg tid completed course - Oxybutunin 5 mg Q 6hr PRN - Morphine prn pain will discontinue today - s/p valium 5 mg prn last night (3) Non Q wave myocardial infarction Current Visit: Yes Status: Acute Code(s): I21.4 - NON-ST ELEVATION (NSTEMI) MYOCARDIAL INFARCTION SNOMED Code(s): 693115419 Comment: - Trop peaked at 8.33 and dropped down to 4.5 post transfusion - Given his EKG changes and elevated troponin, I did ask cardiology (Dr. Sullivan to evaluate patient), - Currently on apsirin 81 mg daily, Plavix 75 mg daily, Lopressor 50 mg bid, Zocor 80 mg HS. (4) CAD (coronary artery disease) Current Visit: Yes Status: Acute Code(s): I25.10 - ATHSCL HEART DISEASE OF [place] CORONARY ARTERY W/O ANG PCTRS SNOMED Code(s): 21297281 Comment: - Trop peaked at 8.33 and dropped down to 4.5 post transfusion - Given his EKG changes and elevated troponin, I did ask cardiology (Dr. Sullivan to evaluate patient), - Currently on apsirin 81 mg daily, Plavix 75 mg daily, Lopressor 50 mg bid, Zocor 80 mg HS. (5) Diastolic heart failure Current Visit: No Status: Acute Code(s): I50.30 - UNSPECIFIED DIASTOLIC ( CONGESTIVE) HEART FAILURE SNOMED Code(s): 544190749 Comment: - Mixed systollic and diastollic heart failure - Last EF 05/31/2018 EF 35-40% - His home lasix 20 mg daily was held on admission due to hypotensions. - s/p lasix 20 mg and 40 mg on 12/13/18 with good urine output. - I will keep his spironolactone on hold for now - I will give one dose lasix 20 mg tomorrow will resume his lasix po afterward. Remains off IVF (6) Anemia Current Visit: Yes Status: Acute Code(s): D64.9 - ANEMIA, UNSPECIFIED SNOMED Code(s): 981979989 Comment: - Given his NQMI and progressive decline in his Hct from 12/07/18 most of it could be dilutional but he does have history of PUD and Hx of GI bleed in the past - I did implement cardiology recommendaiton and I transfused one units, and will keep him on PPI bid. (7) GERD (gastroesophageal reflux disease) Current Visit: No Status: Chronic Priority: Low Code(s): K21.9 - GASTRO- ESOPHAGEAL REFLUX DISEASE WITHOUT ESOPHAGITIS SNOMED Code(s): 527373785 Comment: - continue pantoprazole (8) Diabetes mellitus Current Visit: No Status: Acute Code(s): E11.9 - TYPE 2 DIABETES MELLITUS WITHOUT COMPLICATIONS SNOMED Code(s): 57689501 Comment: - Lantus 12 units with SS (9) CHA (obstructive sleep apnea) Current Visit: Yes Status: Acute Code(s): G47.33 - OBSTRUCTIVE SLEEP APNEA ( ADULT) (PEDIATRIC) SNOMED Code(s): 49929150 (10) Leg edema, left Current Visit: Yes Status: Acute Code(s): R60.0 - LOCALIZED EDEMA SNOMED Code(s): 181937626 Comment: - US rule out DVT Questionable DVT off the perioneal vein without extension into the popliteal - Given his recent hematuria and anemia I will hold off on anticoagulation as it is low risk for propagations. Once he is more stable and less discomfort and H/H stable repeat US as outpatient before treatment if is propgage proximally one can argue to start anticoagulation but the risk with hematuria is not justified at this time (11) DVT prophylaxis Current Visit: No Status: Acute Code(s): OYZ5675 - SNOMED Code(s): 401797418 Comment: HSQ Status and Disposition: inpt
[2018-12-16] MEDS: Terazosin CAP* 5 MG PO SCH (18:58)
[2018-12-16] MEDS: Metoprolol Tartrate TAB* 25 MG PO SCH (20:00)
[2018-12-16 20:06] LABS: Urine Appearance Cloudy; Urine Bacteria 1+ (Absent); Urine Bilirubin Negative (Negative); Urine Blood 3+ (Negative); Urine Color Amber; Urine Glucose Negative (Negative); Urine Ketones Negative (Negative); Urine Nitrite Positive (Negative); Urine Protein Negative (Negative); Urine Red Blood Cell 3+(>10/hpf) (Absent); Urine Specific Gravity 1.015 (1.010-1.030); Urine Squamous Epithelial Cell Present (Absent); Urine Urobilinogen Negative (Negative); Urine White Blood Cell 3+(>20/hpf) (Absent)
[2018-12-16] MEDS: CMCS: Simvastatin TAB(NF) 20 MG TAB PO SCH (21:05)
[2018-12-16] MEDS: Magnesium Oxide TAB* 400 MG PO SCH (21:06)
[2018-12-17] MEDS: Insulin GLARGINE(*) 1 UNITS UNIT SUBCUT SCH ×2 (05:14→17:34)
[2018-12-17] MEDS: Heparin VIAL(*) 5000 UNITS/ML VIAL (FIVE THOUSAND) SUBCUT SCH ×3 (05:14→20:47)
[2018-12-17 06:13] LABS: BUN/Creatinine Ratio 31.5 (8-20); Calcium 8.7 mg/dL (8.6-10.3); EGFR African American 65.5 (>60); EGFR Non-African American 54.1 (>60); Potassium 4.4 mmol/L (3.5-5.0)
[2018-12-17] MEDS: Insulin LISPRO* 1 UNITS UNIT SUBCUT SCH ×4 (09:00→20:47)
[2018-12-17] MEDS: Meropenem 1 GM PREMIX(*) 1 GM/50 ML BAG IV SCH ×2 (09:00→19:35)
[2018-12-17] MEDS: Montelukast Sodium TAB* 10 MG PO SCH (09:01)
[2018-12-17] MEDS: Clopidogrel TAB* 75 MG PO SCH (09:01)
[2018-12-17] MEDS: Aspirin EC TAB* 81 MG TAB.EC PO SCH (09:01)
[2018-12-17] MEDS: Furosemide TAB* 20 MG PO SCH (09:01)
[2018-12-17] MEDS: Pantoprazole TAB * 40 MG TAB PO SCH ×2 (09:02→20:47)
[2018-12-17] MEDS: Metoprolol Tartrate TAB* 25 MG PO SCH ×2 (09:07→18:21)
--- NOTE | 2018-12-17 12:49 | PN ---
Subjective Date of Service: 12/17/18 Interval History: pt feels well. still occasional cough. no problems with urination after catheter removed. denies CP/SOB, ambulating independently Social History: Unchanged from Admission Past Medical History: Unchanged from Admission Objective Active Medications: Acetaminophen (Tylenol Tab*) 650 mg PO Q4H PRN PRN Reason: FEVER/PAIN Last Admin: 12/14/18 00:46 Dose: 650 mg Al Hydrox/Mg Hydrox/Simethicone (Maalox Plus*) 30 ml PO Q6H PRN PRN Reason: INDIGESTION Albuterol (Ventolin Hfa Inhaler*) 1 puff INH Q4H PRN PRN Reason: SOB/WHEEZING Aspirin (Aspirin Ec Tab*) 81 mg PO DAILY [facility] Last Admin: 12/17/18 09:01 Dose: 81 mg Clopidogrel Bisulfate (Plavix Tab*) 75 mg PO DAILY [facility] Last Admin: 12/17/18 09:01 Dose: 75 mg Dextrose (D50w Syringe 50 Ml*) 12.5 gm IV PUSH .FOR FS < 60 - SS PRN PRN Reason: FS < 60 Fluticasone Propionate (Flonase Nasal [place] 50mcg*) 1 spray BOTH NARES QAM PRN PRN Reason: CONGESTION Furosemide (Lasix Tab*) 20 mg PO DAILY [facility] Last Admin: 12/17/18 09:01 Dose: 20 mg Heparin Sodium (Porcine) (Heparin Vial(*)) 5,000 units SUBCUT Q8HR [facility] Last Admin: 12/17/18 05:14 Dose: 5,000 units Meropenem (Merrem 1 Gm Premix(*)) 1 gm in 50 mls @ 100 mls/hr IV 0800,2000 [facility] Last Admin: 12/17/18 09:00 Dose: 100 mls/hr Insulin Glargine (Lantus(*)) 20 units SUBCUT Q12H [facility] Last Admin: 12/17/18 05:14 Dose: 20 units Insulin Human Lispro (Humalog*) 0 units SUBCUT ACHS [facility]; Protocol Last Admin: 12/17/18 09:00 Dose: 2 units Magnesium Hydroxide (Milk Of Magnesia Liq*) 30 ml PO Q6H PRN PRN Reason: CONSTIPATION Magnesium Oxide (Magox 400 Tab*) 800 mg PO BEDTIME [facility] Last Admin: 12/16/18 21:06 Dose: 800 mg Metoprolol Tartrate (Lopressor Tab*) 25 mg PO 0800,1830 [facility] Last Admin: 12/17/18 09:07 Dose: 25 mg Montelukast Sodium (Singulair Tab*) 10 mg PO DAILY [facility] Last Admin: 12/17/18 09:01 Dose: 10 mg Pantoprazole Sodium (Protonix Tab*) 40 mg PO BID [facility] Last Admin: 12/17/18 09:02 Dose: 40 mg Polyethylene Glycol/Electrolytes (Miralax*) 17 gm PO DAILY PRN PRN Reason: CONSTIPATION Last Admin: 12/13/18 04:30 Dose: 17 gm Simvastatin (Zocor(Nf)) 80 mg PO 2100 [facility] Last Admin: 12/16/18 21:05 Dose: 80 mg Terazosin HCl (Hytrin Cap*) 5 mg PO QPM [facility] Last Admin: 12/16/18 18:58 Dose: 5 mg Vital Signs - 8 hr 12/17/18 12/17/18 12/17/18 06:02 07:27 07:33 Temperature 98.1 F Pulse Rate 74 92 Respiratory 20 18 19 Rate Blood Pressure 106/70 (mmHg) O2 Sat by Pulse 94 95 95 Oximetry Oxygen Devices in Use Now: Nasal Cannula Appearance: 73 yo M in nAD, AAOx3 Eyes: No Scleral Icterus, PERRLA Ears/Nose/Mouth/Throat: NL Teeth, Lips, Gums, Mucous Membranes Moist Neck: NL Appearance and Movements; NL JVP, Trachea Midline Respiratory: Symmetrical Chest Expansion and Respiratory Effort, Clear to Auscultation Cardiovascular: NL Sounds; No Murmurs; No JVD, RRR Abdominal: NL Sounds; No Tenderness; No Distention Lymphatic: No Cervical Adenopathy Extremities: No Clubbing, Cyanosis, - - +1 pitting edema b/l Skin: No Rash or Ulcers, No Nodules or Sclerosis Neurological: Alert and Oriented x 3, NL Muscle Strength and Tone Result Diagrams: 12/16/18 07:35 12/17/18 04:46 Microbiology and Other Data: Microbiology 12/12/18 15:51 Aerobic Blood Culture - Preliminary Blood Venous No Growth Day 2 Anaerobic Blood Culture - Preliminary No Growth Day 2 12/12/18 15:10 Aerobic Blood Culture - Preliminary Blood Venous No Growth Day 2 Anaerobic Blood Culture - Preliminary No Growth Day 2 12/12/18 15:10 Urine Culture - Final Urine Esbl Escherichia Coli Assess/Plan/Problems-Billing Assessment: 73 y/o morbid obese male with known history of Extensive CAD (S/p CABG x 2, PTCA ); CHA, Diastolic Heart failure, DM presented to the ER on 12/12/18 for FLASH and hypotension (SBP 70's s/p 3 liters fluid resuscitations) and UTI (failed outpatient Cipro) found to have NQMI with today peaked am Trop of 4.52 - Patient Problems (1) Sepsis secondary to UTI Comment: - UC from 12/11/18 revealed E-coli. Failed outpatient Cipro as it was ESBL - Currently on Merropenem 1 gm IV Q12 Day # 01/12. - UA from 12/12/18 positive for UTI. Cultures came back as well ESBL. Will continue merropenem - US of right kidney shows 2.8 cm without hydronephrosis. Will need urology referral as outpatient but nothing acute at this time. - I doubt it is prostatitis as his PSA was normal. - Catheter removed 12/16 (at the patient request). will check post void today (2) Anemia Comment: - Given his NQMI and progressive decline in his Hct from 12/07/18 most of it could be dilutional but he does have history of PUD and Hx of GI bleed in the past. so far pt has had no melena or BRBPR. Transfused 1 u PRBC on 12/13/18 (3) Leg edema, left Comment: - US rule out DVT Questionable DVT off the perioneal vein without extension into the popliteal - Given his recent hematuria and anemia holding off anticoagulation as it is low risk for propagations. (4) Non Q wave myocardial infarction Comment: - Trop peaked at 8.33 and dropped down to 4.5 post transfusion - Given his EKG changes and elevated troponin, Dr. Sullivan saw pt in consult- cont med management, jhon due to sepsis, will encourage ambulation to monitor for cardiac symptoms - Currently on ASA 81 mg daily, Plavix 75 mg daily, Lopressor 25 mg bid, Zocor 80 mg HS. (5) Severe sepsis Comment: - Met for severe sepsis on admission - hypotension has resolved due to ESBL e. coli UTI (6) Diabetes mellitus Comment: - cont Lantus and ISS (7) Diastolic heart failure Comment: - Mixed systollic and diastollic heart failure - Last EF 05/31/2018 EF 35-40%, curent Echo shows EF 30-35% and mod MR - His home lasix 20 mg daily was held on admission due to hypotensions. - s/p lasix 20 mg and 40 mg on 12/13/18 with good urine output. - will keep his spironolactone on hold for now, restarted PO Lasix from home, today will tx with an additional dose of IV Lasix (8) DVT prophylaxis Comment: HSQ Status and Disposition: inpt
[2018-12-17] MEDS ORDERED: Furosemide IV* 10 MG/ML 2 ML VIAL (20 MG) IV ONE (12:52)
[2018-12-17] MEDS: Terazosin CAP* 5 MG PO SCH (17:35)
[2018-12-17] MEDS: Magnesium Oxide TAB* 400 MG PO SCH (20:46)
[2018-12-17] MEDS: CMCS: Simvastatin TAB(NF) 20 MG TAB PO SCH (20:47)
[2018-12-18 05:45] LABS: ABS Basophils 0.1 10^3/ul (0-0.2); ABS Eosinophils 0.3 10^3/ul (0-0.6); ABS Lymphocytes 1.1 10^3/ul (1.0-4.8); ABS Monocytes 0.6 10^3/ul (0-0.8); ABS Neutrophils 4.2 10^3/ul (1.5-7.7); Hematocrit 30 % (42-52); Hemoglobin 10.1 g/dL (14.0-18.0); Lymphocyte % 17.9 %; Mean Corpuscular HGB Conc 34 g/dL (31-36); Mean Corpuscular Hemoglobin 29 pg (27-31); Mean Corpuscular Volume 87 fL (80-94); Mean Platelet Volume 7.9 fL (7.4-10.4); Platelet Count 256 10^3/uL (150-450); Red Blood Count 3.45 10^6 /uL (4.18-5.48); Red Cell Distribution Width 17 % (10.5-15); White Blood Count 6.4 10^3/uL (3.5-10.8)
[2018-12-18] MEDS: Heparin VIAL(*) 5000 UNITS/ML VIAL (FIVE THOUSAND) SUBCUT SCH ×2 (05:50→12:52)
[2018-12-18] MEDS: Insulin GLARGINE(*) 1 UNITS UNIT SUBCUT SCH (05:50)
[2018-12-18 06:03] LABS: BUN/Creatinine Ratio 23.4 (8-20); Calcium 9.1 mg/dL (8.6-10.3); EGFR African American 78.6 (>60); EGFR Non-African American 64.9 (>60); Potassium 4.1 mmol/L (3.5-5.0)
[2018-12-18] MEDS: Pantoprazole TAB * 40 MG TAB PO SCH (08:18)
[2018-12-18] MEDS: Furosemide TAB* 20 MG PO SCH (08:18)
[2018-12-18] MEDS: Montelukast Sodium TAB* 10 MG PO SCH (08:18)
[2018-12-18] MEDS: Aspirin EC TAB* 81 MG TAB.EC PO SCH (08:18)
[2018-12-18] MEDS: Clopidogrel TAB* 75 MG PO SCH (08:19)
[2018-12-18] MEDS: Insulin LISPRO* 1 UNITS UNIT SUBCUT SCH ×2 (08:19→12:52)
[2018-12-18] MEDS: Metoprolol Tartrate TAB* 25 MG PO SCH (08:29)
[2018-12-18] MEDS: Meropenem 1 GM PREMIX(*) 1 GM/50 ML BAG IV SCH (08:30)
[2018-12-18] MEDS ORDERED: Spironolactone TAB* 25 MG PO SCH (09:00)
[2018-12-18 15:02] VITALS: BP 114/68
--- NOTE | 2018-12-19 01:58 | DS ---
CC: Dr. Mesa; Dr. Sullivan; Dr. Gillespie; Dr. Hobbs * DISCHARGE SUMMARY: DATE OF ADMISSION: 12/12/18 DATE OF DISCHARGE: To home, 12/18/18 CONDITION AT DISCHARGE: Stable. LUMBER STACKER DRIVER: Dr. Mesa. SAFE AND VAULT MECHANIC: Dr. Sullivan. PRIMARY CARE PROVIDER: Dr. Gillespie. PIPELINE ENGINEER: Dr. Hobbs. DISCHARGE DIAGNOSES: 1. Severe sepsis due to ESBL E. coli urinary tract infection. 2. Acute renal failure due to above. 3. Non-ST elevation myocardial infarction due to severe sepsis. 4. Anemia, status post transfusion of 1 packed red blood cells on 12/13/18. DISCHARGE MEDICATIONS: Unchanged from home medications that include, 1. Albuterol inhaler on a p.r.n. basis. 2. Aspirin 81 mg daily. 3. Cetirizine 10 mg daily. 4. Vitamin D3 5000 units daily. 5. Plavix 75 mg daily. 6. Fluticasone nasal spray one spray both nostrils daily. 7. Furosemide 20 mg daily. 8. Hydralazine 25 mg b.i.d. 9. Insulin aspart 14 units subcutaneously in the morning. 10. Insulin glargine 45 units b.i.d. 11. Magnesium oxide 800 mg at bedtime. 12. Metoprolol tartrate 50 mg b.i.d. 13. Asmanex 2 puffs inhalation b.i.d., 220 mcg. 14. Singulair 10 mg daily. 15. Multivitamin 1 tablet daily. 16. Nitroglycerin patch 0.2 mg per hour one patch daily. 17. Protonix 40 mg daily. 18. Potassium chloride 10 mEq daily. 19. Zocor 80 mg daily. 20. Aldactone 12.5 mg daily. 21. Terazosin 5 mg daily. 22. Vitamin B complex 1 capsule b.i.d. CONSULTATIONS DURING THE HOSPITAL STAY: Include Dr. Sullivan from Cardiology. LABORATORY DATA AND STUDIES PERFORMED DURING THE HOSPITAL STAY: On 12/18/18, sodium of 138, potassium of 4.1, chloride of 108, carbon dioxide 26, BUN 26, creatinine 1.11. Liver functions tests were also obtained on 12/14/18 and it showed bilirubin of 0.7, AST of 100, ALT of 36, alkaline phosphatase of 71. Patient's troponin was maximum at 8.3 on 12/13/18, TSH was 0.085 on 12/14/18. Patient's microbiology showed ESBL E. coli in the urine over 100,000 colonies that were sensitive to meropenem, nitrofurantoin and Zosyn. Venous Doppler study obtained on 12/13/18: Impression: "questionable occlusive thrombus of the right peroneal vein without extension to or above popliteal vein on the right. No left lower extremity DVT." Bladder ultrasound obtained on 12/13/18: Impression: "Perera catheter visualized in bladder is not clearly seen, possibly due to minimum urine volume. The prostate gland was not clearly identified." Transthoracic echocardiogram obtained on 12/13/18 showed EF of 30% to 35% with systolic function worse from study of May 2018. Mitral valve with moderate regurgitation. Tricuspid valve with mild to moderate regurgitation. Renal ultrasound obtained on 12/12/18: Impression: "There is a 2.8 cm calculus in the inferior pole of the right kidney without associated hydronephrosis." Patient's postvoid residual was checked on the day of discharge on 12/18/18 and was 12 mL. HOSPITALIZATION COURSE: Nahum Soto is a 73-year-old male who was treated as outpatient for urinary tract infection with ciprofloxacin. Unfortunately, he came into the hospital complaining of similar symptoms. He was hypotensive on arrival. He suffered from acute renal failure and had abnormal troponin. He was diagnosed with non-ST elevation SC likely due to severe sepsis and hypotension at admission. His creatinine peaked at 3.5 at admission. A Perera catheter was initially placed and then discontinued couple of days prior to discharge with no significant residual noted. Dr. Sullivan saw patient in consultation and noted that patient's EF is lower than in the past and currently is at 30% to 35% and needs to be at 40%. At this point, the conclusion of Dr. Sullivan's consult was that we should continue optimal medical treatment that likely his non-ST elevation SC due to severe demand ischemia in the setting of hypoperfusion. The patient although still has chronic exertional angina. It was noted for the patient to ambulate prior to discharge if he has any symptoms of angina, he may require further evaluation. The patient ambulated prior to discharge without any symptoms of angina. He is recommended to follow up with Dr. Mesa in approximately 1 to 2 weeks after discharge. In regard to the patient's microbiology test, his urine cultures were positive for ESBL E. Coli. The sensitivity was only to Zosyn, nitrofurantoin, meropenem. The patient is allergic to PENICILLIN. He was treated with meropenem for a total of 7 days during the hospital stay with good results. By the time of discharge, he had no urinary symptoms. The patient was noted to have bilateral lower extremity swelling with questionable thrombus of the right peroneal vein. He had no symptoms of pain in the area and anticoagulation was not started. In regard to patient's renal function, that improved after treatment of his sepsis and creatinine on the day of discharge was 1.11. By the time of discharge, the patient is ambulated with oxygen saturation of approximately 92% while exercising on room air. Today, he is ready to go home and he is going to be discharged home. Recommendation to follow up with primary care provider in 4 to 7 days and his die storage clerk in 1 to 2 weeks. CONDITION AT DISCHARGE: Stable. PHYSICAL EXAMINATION AT THE TIME OF DISCHARGE: Blood pressure of 115/61, heart rate of 69 and regular, respiratory rate 28, oxygen saturation 92% on room air, temperature 97.7. General: The patient is a pleasant 73-year-old obese male, who is in no acute distress. Alert, awake and oriented x3. HEENT: Head: Atraumatic, normocephalic. Eyes: Pupils are equal, reactive to light and accommodation. Oropharynx is clear. Mucosa moist. Neck: Supple. No JVD. No bruits bilaterally. Cardiovascular: Regular rate and rhythm. No murmurs. Respiratory: Clear to auscultation bilaterally. Abdomen: Soft, nontender. Bowel sounds are present in all 4 quadrants. Extremities: There is +1 pitting pedal edema bilaterally. Pulses +2 bilaterally. No clubbing or cyanosis. On neuro evaluation, speech clear, cranial nerves II through XII grossly intact. Motor strength is 5/5 bilaterally. Please note that this is a short summary of the patient's hospital stay. Please refer to further medical records for details. TIME SPENT: Approximately 40 minutes was spent on the patient's discharge. [id number]/CPS #: [id number] MTDD
== END 2018-12-18 16:00 | disposition home or self-care (01) | DRG 871 ==
LOC: ED 14:54 → MEDTELE 17:23
PROVIDERS: ADMIT Internal Medicine; ATTEND Internal Medicine
PROC: 0T9B70Z Drainage of Bladder with Drainage Device, Via Natural or Artificial Opening (ICD-10-PCS; principal; 2018-12-12)
PROC: 30233N1 Transfusion of Nonautologous Red Blood Cells into Peripheral Vein, Percutaneous Approach (ICD-10-PCS; 2018-12-13)
DX: A41.9 Sepsis, unspecified organism (principal); I21.A1 Myocardial infarction type 2; Z68.42 Body mass index [BMI] 45.0-49.9, adult; N17.9 Acute kidney failure, unspecified; N39.0 Urinary tract infection, site not specified; I50.42 Chronic combined systolic (congestive) and diastolic (congestive) heart failure; I82.493 Acute embolism and thrombosis of other specified deep vein of lower extremity, bilateral; R65.20 Severe sepsis without septic shock; M19.90 Unspecified osteoarthritis, unspecified site; E11.36 Type 2 diabetes mellitus with diabetic cataract; I25.119 Atherosclerotic heart disease of native coronary artery with unspecified angina pectoris; E78.00 Pure hypercholesterolemia, unspecified; I11.0 Hypertensive heart disease with heart failure; J45.909 Unspecified asthma, uncomplicated; K21.9 Gastro-esophageal reflux disease without esophagitis; N40.0 Benign prostatic hyperplasia without lower urinary tract symptoms; B96.20 Unspecified Escherichia coli [E. coli] as the cause of diseases classified elsewhere; R40.2363 Coma scale, best motor response, obeys commands, at hospital admission; R40.2143 Coma scale, eyes open, spontaneous, at hospital admission; R40.2253 Coma scale, best verbal response, oriented, at hospital admission; N32.89 Other specified disorders of bladder; N20.0 Calculus of kidney; E66.01 Morbid (severe) obesity due to excess calories; G47.33 Obstructive sleep apnea (adult) (pediatric); D64.9 Anemia, unspecified; I08.1 Rheumatic disorders of both mitral and tricuspid valves; I25.5 Ischemic cardiomyopathy; Z87.891 Personal history of nicotine dependence; I25.2 Old myocardial infarction; Z95.5 Presence of coronary angioplasty implant and graft; Z88.0 Allergy status to penicillin; Z88.7 Allergy status to serum and vaccine; Z88.8 Allergy status to other drugs, medicaments and biological substances; Z85.46 Personal history of malignant neoplasm of prostate; Z92.3 Personal history of irradiation; Z95.1 Presence of aortocoronary bypass graft; Z82.49 Family history of ischemic heart disease and other diseases of the circulatory system; R31.9 Hematuria, unspecified; Z79.82 Long term (current) use of aspirin; Z79.4 Long term (current) use of insulin; Z79.02 Long term (current) use of antithrombotics/antiplatelets
CPT/HCPCS: 36415; 71045; 76775; 76857; 80048; 80053; 80076; 81003; 81015; 83605; 83735; 83880; 84100; 84153; 84484; 85025; 85027; 85610; 85730; 86140; 86850; 86900; 86901; 86922; 87040; 87077; 87086; 87186; 93005; 93306; 93970; 94660; 99284; A9270-GY; C8929; G0103; J0744; J1644; J1940; J2185; J2270; P9040

== ENCOUNTER 2018-12-26 13:46 | Emergency (ER) | payer MEDICARE ==
--- NOTE | 2018-12-26 14:41 | ED ---
GI/ HPI - HPI Summary HPI Summary: This patient is a 73 year old male presenting to [facility] with a chief complaint of kidney/bladder infection. The patient was recently discharged and prescribed ABx but his PCP does not believe that are working as symptoms have not resolved. Patients initial symptoms was urgency while being unable to urinate. - History of Current Complaint Chief Complaint: EDUrogenitalProblems Time Seen by Provider: 12/26/18 14:05 Stated Complaint: INFECTION PER PT Hx Obtained From: Patient Onset/Duration: Started Days Ago Timing: Constant Pain Intensity: 0 - Additional Pertinent History Primary Care Physician: KIET - Allergy/Home Medications Allergies/Adverse Reactions: Allergies Allergy/AdvReac Type Severity Reaction Status Date / Time COY Inhibitors Allergy Coughing Verified 12/23/18 11:46 atorvastatin Allergy Muscle Ache Verified 12/23/18 11:46 cephalexin [From Keflex] Allergy Swelling Verified 12/23/18 11:46 losartan [From Cozaar] Allergy Unknown Verified 12/23/18 11:46 Reaction Details Penicillins Allergy Swelling Verified 12/23/18 11:46 Tetanus Vaccines and Toxoid Allergy Unknown Verified 12/23/18 11:46 Reaction Details PMH/Surg Hx/FS Hx/Imm Hx Endocrine/Hematology History: Reports: Hx Diabetes Cardiovascular History: Reports: Hx Angina, Hx Angioplasty, Hx Congestive Heart Failure, Hx Coronary Artery Disease, Hx Hypercholesterolemia, Hx Hypertension, Hx Myocardial Infarction, Other Cardiovascular Problems/Disorders - hyperlipidemia, multiple angioplasties, 4 stents, carotid endartectomy Denies: Hx Pacemaker/ICD Respiratory History: Reports: Hx Asthma, Hx Sleep Apnea - CPAP - will bring, Other Respiratory Problems/Disorders - SOB on exertion Denies: Hx Chronic Obstructive Pulmonary Disease (COPD) - PT STATES NO GI History: Reports: Hx Gastroesophageal Reflux Disease History: Reports: Hx Benign Prostatic Hyperplasia, Other Problems/ Disorders - hx prostate CA, BPH - sees dr kidd every 6 months Denies: Hx Dialysis, Hx Renal Disease Musculoskeletal History: Reports: Hx Arthritis Denies: Hx Rheumatoid Arthritis, Hx Osteoporosis, Hx Scoliosis Sensory History: Reports: Hx Cataracts - no surgery yet, Hx Contacts or Glasses - glasses Denies: Hx Glaucoma, Hx Hearing Aid Opthamlomology History: Reports: Hx Cataracts - no surgery yet, Hx Contacts or Glasses - glasses Denies: Hx Glaucoma Neurological History: Denies: Hx Headaches, Hx Seizures, Hx Transient Ischemic Attacks (TIA), Other Neuro Impairments/Disorders Psychiatric History: Denies: Hx Anxiety, Hx Depression - Cancer History Cancer Type, Location and Year: Prostate Hx Radiation Therapy: Yes - Surgical History Surgery Procedure, Year, and Place: Tonsillectomy 1952. Quadruple bypass 1990 [facility],. single bypass 2004, alf. Nasal polyps removal 1991 and 1992 [facility]. Multiple angiograms, [facility] and [facility] [place]. 2 stents 2003 - strong. External beam radiation for prostate CA 1999 [facility]. Scar tissue removal from urethra 2001 [facility] [place]. 2 additional stents Aug 2013 [facility] [place]. Carotid endartectomy 2010 [facility] Hx Anesthesia Reactions: No - Immunization History Date of Tetanus Vaccine: Up to date Date of Influenza Vaccine: May 2016 Infectious Disease History: Yes Infectious Disease History: Denies: Traveled Outside the [place] in Last 30 Days - Family History Known Family History: Positive: Hypertension - father Negative: Cardiac Disease, Diabetes - Social History Alcohol Use: Rare Hx Substance Use: No Substance Use Type: Reports: None Hx Tobacco Use: Yes Smoking Status (MU): Former Smoker Type: Cigarettes Amount Used/How Often: 1ppd for 13 yrs Review of Systems Negative: Fever Positive: dysuria, urgency All Other Systems Reviewed And Are Negative: Yes Physical Exam - Summary Physical Exam Summary: Appearance: The patient is well-nourished in no acute distress and in no acute pain. Skin: The skin is warm and dry and skin color reflects adequate perfusion. HEENT: The head is normocephalic and atraumatic. The pupils are equal and reactive. The conjunctivae are clear and without drainage. Nares are patent and without drainage. Mouth reveals moist mucous membranes and the throat is without erythema and exudate. The external ears are intact. The ear canals are patent and without drainage. The tympanic membranes are intact. Neck: The neck is supple with full range of motion and non-tender. There are no carotid bruits. There is no neck vein distension. Respiratory: Chest is non-tender. Lungs are clear to auscultation and breath sounds are symmetrical and equal. Cardiovascular: Heart is regular rate and rhythm. There is no murmur or rub auscultated. There is no peripheral edema and pulses are symmetrical and equal. Abdomen: The abdomen is soft and non-tender. There are normal bowel sounds heard in all four quadrants and there is no organomegaly palpated. Musculoskeletal: There is no back tenderness noted. Extremities are non-tender with full range of motion. There is good capillary refill. There is no peripheral edema or calf tenderness elicited. Neurological: Patient is alert and oriented to person, place and time. The patient has symmetrical motor strength in all four extremities. Cranial nerves are grossly intact. Deep tendon reflexes are symmetrical and equal in all four extremities. Psychiatric: The patient has an appropriate affect and does not exhibit any anxiety or depression. Triage Information Reviewed: Yes Vital Signs On Initial Exam: Initial Vitals Temp Pulse Resp BP Pulse Ox 98.7 F 62 18 141/75 94 12/26/18 13:47 12/26/18 13:47 12/26/18 13:47 12/26/18 13:47 12/26/18 13:47 Vital Signs Reviewed: Yes Diagnostics - Vital Signs Vital Signs Temp Pulse Resp BP Pulse Ox 12/26/18 13:47 98.7 F 62 18 141/75 94 - Laboratory Result Diagrams: 12/26/18 16:07 12/26/18 16:07 Lab Statement: Any lab studies that have been ordered have been reviewed, and results considered in the medical decision making process. - Ultrasound No standard instances Ultrasound Interpretation Completed By: ED Physician Summary of Ultrasound Findings: Bedside Bladder U/S: No residual urine detected. GIGU Course/Dx - Course Course Of Treatment: Mr. Soto was hospitalized last week for sepsis from a urinary tract infection. He grew out an atypical Escherichia coli that was responsive only to 3 medications 1 of which she is allergic to he was treated with IV meropenem for 7 days and improved. He was discharged home without any antibiotics. I saw him about 3 days ago in the emergency department. He did have difficulty urinating prior to coming in but then suddenly became able to urinate and so was only mildly dysuric when I saw him. His vital signs are stable and he was nontoxic in appearance. His urine did show signs of infection again and it was sent for culture and I started him on Macrodantin which was the third medication that the original organism was sensitive to. He went to see his PCP today and a urine dip still had signs of white blood cells and red blood cells should be clear at this point therefore sent back to the emergency department. He is asymptomatic, nontoxic in appearance and has stable vitals. He urinated here for us and had no residual on bladder scan. His culture results from 3 days ago set shows a same organism with the same sensitivities. I spoke with Dr. Caballero who felt that this was likely a prostatitis and that the Macrodantin would not penetrate. He recommended IV meropenem. I spoke with Dr. Kemp of infectious diseases who agreed with that and recommended I give him ertapenem today which will last 24 hours. The patient will follow-up with Dr. Kemp tomorrow to get set up with a PICC line and outpatient IV antibiotics as he is completely stable and does not want to be admitted to the hospital. - Diagnoses Provider Diagnoses: Bacterial prostatitis - Physician Notifications Discussed Care Of Patient With: Jossue Caballero - Urology Time Discussed With Above Provider: 15:37 Discharge - Sign-Out/Discharge Documenting (check all that apply): Patient Departure - Discharge Patient Received Moderate/Deep Sedation with Procedure: No - Discharge Plan Condition: Stable Disposition: HOME Patient Education Materials: Prostatitis (ED) Referrals: Erica PINTO,Miller Ji [Medical Doctor] - 1 Day Additional Instructions: Follow up with Dr. Viveros tomorrow. Return to ED with any new or worsening symptoms. - Billing Disposition and Condition Condition: STABLE Disposition: Home - Attestation Statements Document Initiated by Valencia: Yes Documenting Dorieibe: Hima Valerio Provider For Whom Valencia is Documenting (Include Credential): Colton Sepulveda MD Scribclaudia Attestation: Hima Velez, scribed for Colton Sepulveda MD on 12/26/18 at 2044. Scribe Documentation Reviewed: Yes Provider Attestation: The documentation as recorded by the Hima gibbs accurately reflects the service I personally performed and the decisions made by me, Colton Sepulveda MD Status of Scrmarianna Document: Viewed
[2018-12-26 15:02] LABS: Urine Appearance Cloudy; Urine Bacteria Absent (Absent); Urine Bilirubin Negative (Negative); Urine Blood 2+ (Negative); Urine Color Yellow; Urine Glucose Negative (Negative); Urine Ketones Negative (Negative); Urine Nitrite Negative (Negative); Urine Protein Negative (Negative); Urine Red Blood Cell 3+(>10/hpf) (Absent); Urine Specific Gravity 1.012 (1.010-1.030); Urine Squamous Epithelial Cell Present (Absent); Urine Urobilinogen Negative (Negative); Urine White Blood Cell 1+(6-10/hpf) (Absent)
[2018-12-26] MEDS ORDERED: Meropenem 1 GM PREMIX(*) 1 GM/50 ML BAG IV ONE (15:32)
[2018-12-26 16:15] LABS: ABS Basophils 0.1 10^3/ul (0-0.2); ABS Eosinophils 0.1 10^3/ul (0-0.6); ABS Lymphocytes 1.2 10^3/ul (1.0-4.8); ABS Monocytes 0.6 10^3/ul (0-0.8); ABS Neutrophils 5.6 10^3/ul (1.5-7.7); Eosinophil % 1.5 %; Hematocrit 30 % (42-52); Hemoglobin 10.1 g/dL (14.0-18.0); Lymphocyte % 15.6 %; Mean Corpuscular HGB Conc 34 g/dL (31-36); Mean Corpuscular Hemoglobin 29 pg (27-31); Mean Corpuscular Volume 87 fL (80-94); Platelet Count 224 10^3/uL (150-450); Red Blood Count 3.46 10^6 /uL (4.18-5.48); Red Cell Distribution Width 17 % (10.5-15); White Blood Count 7.6 10^3/uL (3.5-10.8)
[2018-12-26] MEDS ORDERED: Ertapenem* 1 GM in NS 0.9% 50 ML* 50 ML IVPB ONE (16:25)
[2018-12-26 16:37] LABS: Albumin 3.4 g/dL (3.2-5.2); Albumin/Globulin Ratio 0.9 (1-3); BUN/Creatinine Ratio 18.1 (8-20); C Reactive Protein 7.09 mg/L (<8.01); Calcium 9.7 mg/dL (8.6-10.3); EGFR African American 67.3 (>60); EGFR Non-African American 55.6 (>60); Globulin 3.9 g/dL (2-4); Total Bilirubin 0.6 mg/dL (0.2-1.0); Total Protein 7.3 g/dL (6.4-8.9)
[2018-12-26 17:41] VITALS: BP 132/84
== END 2018-12-26 17:40 | disposition home or self-care (01) ==
LOC: ED 13:46
DX: N41.0 Acute prostatitis (principal); E11.9 Type 2 diabetes mellitus without complications; Z95.1 Presence of aortocoronary bypass graft; Z95.5 Presence of coronary angioplasty implant and graft; Z85.46 Personal history of malignant neoplasm of prostate; Z88.1 Allergy status to other antibiotic agents; Z88.0 Allergy status to penicillin; Z88.7 Allergy status to serum and vaccine; Z88.8 Allergy status to other drugs, medicaments and biological substances; Z87.891 Personal history of nicotine dependence
CPT/HCPCS: 36415; 80053; 81003; 81015; 85025; 86140; 87040; 87086; 96365; 96375; 99282; J1335; J2185

== ENCOUNTER 2019-07-13 13:15 | Inpatient (IN) | payer MEDICARE ==
[2019-07-13] MEDS ORDERED: NS 0.9% 1000 ML** 1,000 ML IV ONE (13:45)
--- NOTE | 2019-07-13 13:51 | ED ---
GI/ HPI - HPI Summary HPI Summary: This pt is a 73 y/o male presenting to [facility] c/o generalized weakness, fatigue, and rectal bleeding. Pt reports he thought he had the flu all this week but had a flu test that resulted negative. He notes he has been having diarrhea with bloody stools. This morning when he went to the bathroom he noticed there was a spot of blood. Denies fever, chest pain, SOB. Pt is on anticoagulants, Plavix, Eliquis. PMHx: CAD s/p coronary artery bypass grafting and stenting, right internal carotid stenosis at 50 - 79%, sleep apnea, CHF with EF of 45%, prostate CA, DM. - History of Current Complaint Chief Complaint: EDWeakness Stated Complaint: WEAKNESS, AND FLU SYMPTOMS PER PT Hx Obtained From: Patient Onset/Duration: Started Days Ago, Still Present Timing: Lasting Days Pain Intensity: 0 Associated Signs and Symptoms: Positive: Weakness - generalized, Blood w/Stool, Diarrhea, Other: - POSITIVE: fatigue. NEGATIVE: SOB. Negative: Fever, Chills, Chest Pain Aggravating Factor(s): Nothing Alleviating Factor(s): Nothing - Additional Pertinent History Primary Care Physician: [id number] - Allergy/Home Medications Allergies/Adverse Reactions: Allergies Allergy/AdvReac Type Severity Reaction Status Date / Time COY Inhibitors Allergy Coughing Verified 02/15/19 08:47 atorvastatin Allergy Muscle Ache Verified 01/15/19 08:11 cephalexin [From Keflex] Allergy Swelling Verified 02/15/19 08:47 losartan [From Cozaar] Allergy Unknown Verified 02/15/19 08:47 Reaction Details Penicillins Allergy Swelling Verified 02/15/19 08:47 ramipril [From Altace] Allergy Unknown Verified 02/15/19 08:47 Reaction Details Tetanus Vaccines and Toxoid Allergy Unknown Verified 02/15/19 08:47 Reaction Details Home Medications: Home Medications Albuterol 2.5MG/3ML (0.083%)* [Ventolin 2.5 MG/3 ML NEB.DORENE*] 2.5 mg INH .Q6- 12H PRN 07/13/19 [History Confirmed 07/13/19] Apixaban* [Eliquis*] 5 mg PO BID 07/13/19 [History Confirmed 07/13/19] Empaglifozin (NF) [Jardiance (Nf)] 10 mg PO DAILY 07/13/19 [History Confirmed ] Isosorbide Dinitrate TAB* [Isordil TAB*] 30 mg PO DAILY 07/13/19 [History Confirmed 07/13/19] Mometasone 220 MCG MDI * [Asmanex 220 MCG MDI *] 2 puff INH DAILY 07/13/19 [ History Confirmed 07/13/19] Sodium Chloride(INHALANT) 3%* 3 % INH Q12H 07/13/19 [History Confirmed 07/13/19] PMH/Surg Hx/FS Hx/Imm Hx Endocrine/Hematology History: Reports: Hx Diabetes Cardiovascular History: Reports: Hx Angina, Hx Angioplasty, Hx Congestive Heart Failure, Hx Coronary Artery Disease, Hx Hypercholesterolemia, Hx Hypertension, Hx Myocardial Infarction, Other Cardiovascular Problems/Disorders - hyperlipidemia, multiple angioplasties, 4 stents, carotid endartectomy Denies: Hx Pacemaker/ICD Respiratory History: Reports: Hx Asthma, Hx Sleep Apnea - CPAP - will bring, Other Respiratory Problems/Disorders - SOB on exertion Denies: Hx Chronic Obstructive Pulmonary Disease (COPD) - PT STATES NO GI History: Reports: Hx Gastroesophageal Reflux Disease History: Reports: Hx Benign Prostatic Hyperplasia, Other Problems/ Disorders - hx prostate CA, BPH - sees dr kidd every 6 months Denies: Hx Dialysis, Hx Renal Disease Musculoskeletal History: Reports: Hx Arthritis Denies: Hx Rheumatoid Arthritis, Hx Osteoporosis, Hx Scoliosis Sensory History: Reports: Hx Cataracts - no surgery yet, Hx Contacts or Glasses - glasses Denies: Hx Glaucoma, Hx Hearing Aid Opthamlomology History: Reports: Hx Cataracts - no surgery yet, Hx Contacts or Glasses - glasses Denies: Hx Glaucoma Neurological History: Denies: Hx Headaches, Hx Seizures, Hx Transient Ischemic Attacks (TIA), Other Neuro Impairments/Disorders Psychiatric History: Denies: Hx Anxiety, Hx Depression - Cancer History Cancer Type, Location and Year: Prostate Hx Radiation Therapy: Yes - Surgical History Surgery Procedure, Year, and Place: Tonsillectomy 1952. Quadruple bypass 1990 [facility],. single bypass 2005 [facility]. Nasal polyps removal 1991 and 1992 [facility]. Multiple angiograms, [facility] and [facility]. 2 stents 2003 - [facility]. External beam radiation for prostate CA 1999 [facility]. Scar tissue removal from urethra 2001 [facility]. 2 additional stents Aug 2013 [facility] [place]. Carotid endartectomy 2010 [facility] Hx Anesthesia Reactions: No - Immunization History Date of Tetanus Vaccine: Up to date Date of Influenza Vaccine: May 2016 Infectious Disease History: No Infectious Disease History: Denies: Traveled Outside the [place] in Last 30 Days - Family History Known Family History: Positive: Hypertension - father Negative: Cardiac Disease, Diabetes - Social History Alcohol Use: None Hx Substance Use: No Substance Use Type: Reports: None Hx Tobacco Use: Yes Smoking Status (MU): Former Smoker Type: Cigarettes Amount Used/How Often: 1ppd for 13 yrs Review of Systems Positive: Fatigue. Negative: Fever Negative: Chest Pain Negative: Shortness Of Breath Gastrointestinal: Other - POSITIVE: rectal bleeding Positive: Diarrhea Positive: Weakness - generalized All Other Systems Reviewed And Are Negative: Yes Physical Exam - Summary Physical Exam Summary: GENERAL: Patient is an obese male who is lying comfortable in the stretcher in no acute distress, slightly hypotensive. HEAD AND FACE: No signs of trauma. No ecchymosis, hematomas or skull depressions. No sinus tenderness. EYES: PERRLA, EOMI x 2, No injected conjunctiva, no nystagmus. EARS: Hearing grossly intact. Ear canals and tympanic membranes are within normal limits. MOUTH: Oropharynx within normal limits. Oral mucosa is dry. NECK: Supple, trachea is midline, no adenopathy, no JVD, no carotid bruit, no c- spine tenderness, neck with full ROM. CHEST: Symmetric, no tenderness at palpation LUNGS: Clear to auscultation bilaterally. No wheezing or crackles. CVS: Regular rate and rhythm, S1 and S2 present, no murmurs or gallops appreciated. ABDOMEN: Soft, non-tender. No signs of distention. No rebound no guarding, and no masses palpated. Bowel sounds are normal. RECTAL EXAM: small amount of gross blood, no hemorrhoids. EXTREMITIES: FROM in all major joints, no edema, no cyanosis or clubbing. NEURO: Alert and oriented x 3. No acute neurological deficits. Speech is normal and follows commands. SKIN: Dry and warm Triage Information Reviewed: Yes Vital Signs On Initial Exam: Initial Vitals Temp Pulse Resp BP Pulse Ox 98.1 F 76 18 100/67 96 07/13/19 13:15 07/13/19 13:15 07/13/19 13:15 07/13/19 13:15 07/13/19 13:15 Vital Signs Reviewed: Yes Procedures - Sedation Patient Received Moderate/Deep Sedation with Procedure: No Diagnostics - Vital Signs Vital Signs Temp Pulse Resp BP Pulse Ox 07/13/19 13:15 98.1 F 76 18 100/67 96 - Laboratory Result Diagrams: 07/14/19 13:56 07/14/19 05:38 Lab Statement: Any lab studies that have been ordered have been reviewed, and results considered in the medical decision making process. - Radiology Chest XR Radiology Interpretation Completed By: Radiologist Summary of Radiographic Findings: IMPRESSION: Cardiomegaly with suspected interstitial and alveolar pulmonary edema. Bibasilar infiltrate could have a similar appearance. Dr. Paula has reviewed this report. - EKG 1336 Cardiac Rate: NL - at 77 bpm EKG Rhythm: Atrial Fibrillation EKG Comparison: No Significant Change - similar to prior EKG on 12/17/18. Summary of EKG Findings: EKG at 1336 shows afib at [address] depressions and T wave inversions in leads I, II, III, aVF, V2, V3, V4, V5, V6. Similar to prior EKG on 12/17/18. GIGU Course/Dx - Course Assessment/Plan: This pt is a 73 y/o male presenting to [facility] c/o generalized weakness, fatigue, and rectal bleeding. Pt reports he thought he had the flu all week but had a flu test that resulted negative. He notes he has been having diarrhea with bloody stools. This morning when he went to the bathroom he noticed there was a spot of blood. Denies fever, chest pain, SOB. Pt is on anticoagulants, Plavix, Eliquis. PMHx: CAD s/p coronary artery bypass grafting and stenting, right internal carotid stenosis at 50 - 79%, sleep apnea, CHF with EF of 45%, prostate CA, DM. Blood work without any significant abnormality except for slight anemia with hemoglobin 11.8 and hematocrit 35, INR 2.46, PTT of 38.6, sodium is 133, chloride 100, creatinine 1.83, glucose 121 , lactic acid is 2.8, magnesium of 1.6, troponin 0.24, CRP over 84.5, BNP 301, globulin 4.4. Urinalysis is negative for UTI. Chest x-ray impression: Cardiomegaly with suspected interstitial and alveolar pulmonary edema. Bi- basilar infiltrate could have similar appearance. Occult blood test is positive. I discussed my physical exam and test results with Dr. Talbert from the hospitalist services and she agrees to admit the patient to her services. The patient is hemodynamically stable, alert and oriented x 3. - Diagnoses Provider Diagnoses: GI bleed - Physician Notifications Discussed Care Of Patient With: Mary Talbert - hospitalist Time Discussed With Above Provider: 15:36 Instructed by Provider To: Admit As Inpatient Discharge ED - Sign-Out/Discharge Documenting (check all that apply): Patient Departure - Admit to [facility] [place] - Discharge Plan Condition: Improved Disposition: ADMITTED TO [facility] - Billing Disposition and Condition Condition: STABLE Disposition: Admitted to [facility] - Attestation Statements Document Initiated by Valencia: Yes Documenting Scribe: Simona Johnson Provider For Whom Valencia is Documenting (Include Credential): Shree Paula MD Scribe Attestation: ISimona, scribed for Shree Paula MD on 07/15/19 at 1844. Scribe Documentation Reviewed: Yes Provider Attestation: The documentation as recorded by the Simona gibbs accurately reflects the service I personally performed and the decisions made by me, Shree Paula MD Status of Scribe Document: Viewed
--- OUTSIDE RECORDS SUMMARY | 2019-07-13 14:04 | XMS REPORT | Continuity of Care Document ---
:1945 External Reference #:[id number] Author Name Pedro Gillespie D.O. Address [address] [place] [address] Care Team Providers Name Role Phone Farhad Mesa MD - Cardiovascular Care Team Information [facility] - Cardiovascular Care Team Information [facility] - Otolaryngology Care Team Information Reticle Printer [phone] Phani Darnell MD - Pulmonary Care Team Information Reticle Printer [phone] Disease Lobo Pabon MD - Urology Care Team Information Reticle Printer [phone] Valentina Munoz MD - Care Team Information Reticle Printer [phone] Dermatology Problems Active Problems Provider Date Injury due to chemical exposure Nahum Nye M.D. Onset: 03/08/2014 Note: [employer] [place] in on 40% disability Pure hypercholesterolemia Nahum Nye M.D. Onset: 05/16/2003 Benign essential hypertension Nahum Nye M.D. Onset: 05/16/2003 Hyperplasia of prostate Nahum Nye M.D. Onset: 05/16/2003 Angina pectoris Nahum Nye M.D. Onset: 05/16/2003 Morbid obesity Nahum Nye M.D. Onset: 08/19/2003 Calculus of bile duct with cholecystitis Nahum Nye M.D. Onset: History of malignant neoplasm of prostate Nahum Nye M.D. Onset: Degenerative joint disease of pelvis Nahum Nye M.D. Onset: 2003 Gastroesophageal reflux disease Nahum Nye M.D. Onset: 07/23/2004 Type 2 diabetes mellitus with multiple Nahum Nye M.D. Onset: 2004 complications Chronic ischemic heart disease Nahum Nye M.D. Onset: 11/09/2004 Benign neoplasm of colon Nahum Nye M.D. Onset: 01/07/2005 Allergic rhinitis due to pollen Nahum Nye M.D. Onset: 01/31/2006 Gallstone Nahum Nye M.D. Onset: 02/04/2009 Chronic ischemic heart disease Nahum Nye M.D. Onset: 08/27/2013 Allergic asthma without status asthmaticus Pedro Gillespie D.O. Onset: 2013 Type 2 diabetes mellitus Nahum Nye M.D. Onset: 07/24/2015 Uncomplicated moderate persistent asthma Pedro Gillespie D.O. Onset: 2016 Essential hypertension Pedro Gillespie D.O. Onset: 12/13/2017 Social History Type Date Description Comments Sex Unknown Tobacco Use Start: Unknown End: Does Not Smoke Unknown Cigarettes Tobacco Use Start: Unknown End: Former Cigarette Smoker quit in his 20s Unknown Tobacco Use Reviewed: 07/19/14 Denies Cigarette Use ETOH Use Currently consumes none alcohol Recreational Drug Use Denies Drug Use Tobacco Use Reviewed: 11/28/14 Patient has never smoked Smoking Status Reviewed: 07/09/19 Patient has never smoked Allergies, Adverse Reactions, Alerts Active Allergies Reaction Severity Comments Date Penicillin facial swelling 08/19/2003 Tetanus vaccine 08/19/2003 Keflex 09/24/2013 Marcus Inhibitors severe cough 09/29/2016 Medications Active Medications SIG Qnty Indications Ordering Date Provider Oseltamivir 1 by mouth twice 10caps J11.89 Verna, 07/09/2019 Phosphate daily for 5 days. Breann Vasquez 75mg Capsules Furosemide take one tablet by Unknown 07/08/2019 80mg mouth every morning Tablets Hydralazine 50MG 3 times per day Unknown 07/08/2019 Eliquis Unknown 07/08/2019 Insulin use twice daily with 180units E11.65 Verna, 11/07/2018 Syringe/Needle insulin Breann Vasquez 1ML/31G X 5/16" 31G X 5/16" 1 ML [facility] Accu-Chek Softclix 1-4 times daily as 200units E11.65 [facility], 10/12/2018 Lancets directed Breann aVsquez Misbill Novolog Mix 70/30 14u in in the 15ml [facility], 07/10/2018 Prefilled Flexpen morning Breann Vasquez (70-30)100Unit/ML Supn Metoprolol Tartrate [facility] 1 tablet [facility], 06/12/2018 mouth twice a day Breann Vasquez 50mg Tablets for high blood pressure Potassium Chloride 1 tablet po daily 30tabs Unknown 06/06/2018 ER 10Meq Tablets ER Lantus inject 45 units Unknown 06/01/2018 100Unit/ML subcu twice daily Solution BD Pen or appropriate 120units [facility], 04/13/2018 Needle/Mini/Ultrafin needles for novolog Breann Vasquez e/31G X 3/16" pen. use up to 31G X 5 4/day, as directed, mm [facility] for insulin administration Vitamin D3 Maximum 1 by mouth every day 90caps [facility], 06/16/2017 Strength or 7 tablets once a Pedro D.O. 5000Unit week Capsules Magox 400 2 tablets every 180tabs [facility], 06/16/2017 night at bedtime as Pedro D.O. 400(241.3mg) mg directed Tablets Vitamin B Complex-C 1 by mouth twice a 180caps [facility], 06/16/2017 day Pedro, D.O. Capsules Blood Pressure Cuff use as directed 1units I10 co, 06/01/2017 Carol Razo [facility] Nitrostat place 1 tablet under 100tabs I10 [facility], 09/22/2016 0.4mg tongue every 5 Pedro, D.O. Tablets Sub minutes as needed for heart pain up to 3 tablets Spironolactone take 1/2 tablet by Unknown 05/20/2016 25mg mouth once daily Tablets Nitroglycerin apply one patch 90units , 03/23/2016 daily Dung, M.D. 0.2mg/HR Patches 24HR Fluticasone 1 sprays [facility] Propionate nostril every day Breann Vasquez 50mcg/Act for nasal Suspension congestion. brigid allergies. rinse mouth post Asmanex 1 inhilation twice a 1units Nahum Saravia 01/13/2015 220mcg/Inh day rinse mouth Carol Nye Aerosol after use. Proair HFA 2 puffs every 4 8.500gm J45.20 Nahum Saravia 02/04/2014 hours as needed for Carol Nye 108(90Base) mcg/Act asthma symptoms Aerosol Terazosin HCL take 1 capsule in 180caps I10 Verna, 12/13/2013 5mg the evening Breann Vasquez Capsules N40.1 Simvastatin 1 every night for 90tabs I25.9 Pedro Gillespie, 09/24/2013 80mg cholesterol D.O. Tablets Zyrtec Allergy 1 by mouth every day 477.0 Alondra Bergeron, 04/11/2012 10mg for allergies Tablets Ecotrin Low Strength 1tab po daily for 100tabs I25.9 Lakia Miller MD cad/cva prophylaxis 81mg Tablets E11.65 Pantoprazole Sodium take 1 tablet by 90tabs K21.9 Pedro Gillespie, 2010 40mg mouth daily D.O. Tablets Glucose Test Strips test twice a day 100units E11.65 Pedro Gillespie, 11/12 or as directed D.O. Mvi 1 tab po day Lakia Miller MD 10/31/2007 Inj Plavix 1 by mouth every 90tabs I65.29 Pedro Gillespie, 75mg Tablets day D.O. I70.8 Montelukast Sodium 10mg Tablets once daily Unknown History Medications Iron (Ferrous 1 by mouth D64.9 Unknown 02/26/2019 - Gluconate) twice a day. 03/12/2019 256(28Fe) mg Tablets Iron 1 by mouth 90tabs D64.9 Pedro Gillespie, 01/09/2019 - 325(65Fe) mg daily D.O. 02/26/2019 Tablets Medications Administered in Office Medication SIG Qnty Indications Ordering Provider Date B12 Injection Nurse's Schedule 01/03/2019 Injection SC/Im Injections Nurse's Schedule 01/03/2019 Injection B12 Injection Pedro Gillespie D.O. 12/20/2018 Injection B12 Injection Nurse's Schedule 12/20/2018 Injection SC/Im Injections Pedro Gillespie D.O. 12/20/2018 Injection B12 Injection Pedro Gillespie D.O. 12/11/2018 Injection SC/Im Injections Pedro Gillespie D.O. 12/11/2018 Injection Influenza, Unspecified Pedro Gillespie D.O. 04/06/2018 Injection TB Intradermal Test Nurse's Schedule 11/25/2007 Injection Immunizations CPT Code Status Date Vaccine Lot # U-Flu Given 05/23/2019 Influenza,Unspecified 33908 Given 04/10/2018 Influenza Virus Vaccine, Quadrivalent, Split, Im Use 53475 Given 05/11/2017 Influenza Vaccine Split Virus Preservative Free Im Use (hi-dose) 35240 Given 05/11/2016 Influenza Virus Vaccine, Quadrivalent, Split, [place] Use 24314 Given 12/08/2015 Zostavax U-Flu Given 06/23/2015 Influenza,Unspecified 91569 Given 04/02/2015 Influenza Vaccine Split Virus Preservative Free Im Use (hi-dose) 35779 Given 11/28/2014 Prevnar 13 [id number] 02299 Given 03/08/2014 Flu, Split Virus 3Yrs 06716 Given 08/06/2013 Flu, Split Virus 3Yrs 13265 Given 04/19/2012 Flu, Split Virus 3Yrs 19682 Given 04/22/2011 Flu, Split Virus 3Yrs 27815 Given 10/16/2010 Pneumococcal Immunization [id number] 76342 Given 05/08/2010 Flu, Split Virus 3Yrs [id number] 80635 Given 02/06/2010 Adacel or Boostrix, TDaP [id number] 28233 Given 04/29/2009 Flu, Split Virus 3Yrs [id number] 28249 Given 05/13/2008 Flu, Split Virus 3Yrs [id number] 53922 Given 07/13/2007 Flu, Split Virus 3Yrs [id number] 71407 Given 06/28/2006 Flu, Split Virus 3Yrs [id number] 67842 Given 01/31/2006 Td Immunization 16442 Given 05/18/2005 Flu, Split Virus 3Yrs 86121 Given 05/14/2004 Flu, Split Virus 3Yrs 68099 Given 05/09/2003 Flu, Split Virus 3Yrs 62452 Given 07/14/2001 Pneumococcal Immunization Vital Signs Date Vital Result Comment 07/09/2019 10:51am BP Systolic 104 mmHg BP Diastolic 66 mmHg Heart Rate 80 /min O2 % BldC Oximetry 92 % Body Temperature 98.2 F 04/12/2019 10:04am BP Systolic 120 mmHg BP Diastolic 72 mmHg Weight 294.00 lb 294.2 yesterday 04/11/19 at home per pt Results Test Acquired Date Facility Test Result H/L Range Note Influenza A & B 07/09/2019 [facility] Influenza A NEGATIVE Negative 1, 2 Request [phone] Molecular Influenza B Molecular NEGATIVE Negative Flu AB Disclaimer (SEE NOTE) 3 CBC No Diff 06/19/2019 [facility] White Blood Count 5.8 10^3/uL Normal 3.5-10.8 [phone] Red Blood Count 4.02 10^6/uL Low 4.18-5.48 Hemoglobin 12.1 g/dL Low 14.0-18.0 Hematocrit 36 % Low 42-52 Mean Corpuscular Volume 90 fL Normal 80-94 Mean Corpuscular Hemoglobin 30 pg Normal 27-31 Mean Corpuscular HGB Conc 34 g/dL Normal 31-36 Red Cell Distribution Width 17 % High 10-15 Platelet Count 196 10^3/uL Normal 150-450 Mean Platelet Volume 7.8 fL Normal 7.4-10.4 Inr/Protime 06/19/2019 [facility] Inr 1.87 High 0.82-1.09 4 [phone] Basic Metabolic Panel 06/19/2019 [facility] Sodium 137 mmol/L Normal 135-145 [phone] Potassium 4.3 mmol/L Normal 3.5-5.0 Chloride 104 mmol/L Normal 101-111 Co2 Carbon Dioxide 26 mmol/L Normal 22-32 Anion Gap 7 mmol/L Normal 2-11 Glucose 152 mg/dL High 70-100 Blood Urea Nitrogen 30 mg/dL High 6-24 Creatinine 1.50 mg/dL High 0.67-1.17 BUN/Creatinine Ratio 20.0 Normal 8-20 Calcium 9.7 mg/dL Normal 8.6-10.3 Egfr Non- 45.9 >60 Egfr 55.5 >60 5 CBC Auto Diff 04/12/2019 [facility] White Blood 6.3 10^3/uL Normal 3.5-10.8 [phone] Count Red Blood Count 3.92 10^6/uL Low 4.18-5.48 Hemoglobin 12.1 g/dL Low 14.0-18.0 Hematocrit 36 % Low 42-52 Mean Corpuscular Volume 92 fL Normal 80-94 Mean Corpuscular Hemoglobin 31 pg Normal 27-31 Mean Corpuscular HGB Conc 34 g/dL Normal 31-36 Red Cell Distribution Width 16 % High 10-15 Platelet Count 186 10^3/uL Normal 150-450 Mean Platelet Volume 7.6 fL Normal 7.4-10.4 Abs Neutrophils 4.0 10^3/uL Normal 1.5-7.7 Abs Lymphocytes 1.2 10^3/uL Normal 1.0-4.8 Abs Monocytes 0.7 10^3/uL Normal 0-0.8 Abs Eosinophils 0.4 10^3/uL Normal 0-0.6 Abs Basophils 0.1 10^3/uL Normal 0-0.2 Abs Nucleated RBC 0.0 10^3/uL Granulocyte % 63.3 % Lymphocyte % 18.2 % Monocyte % 11.3 % Eosinophil % 6.2 % Basophil % 1.0 % Nucleated Red Blood Cells % 0.1 Laboratory test finding 04/12/2019 [facility] Ferritin 29.0 ng/mL Normal 24-336 [phone] Iron & Iron Binding 04/12/2019 [facility] Iron 50 g/dL Normal 50- 212 Capacity [phone] Unsaturated Iron Binding < 359 g/dL Total Iron Binding Capacity 374 g/dL Normal 250-450 Transferrin 267 mg/dL Normal 203-362 % Iron Saturation 13 % Low 15-55 Laboratory test 04/12/2019 In House Hemoglobin A1c 7.0 finding CBC Auto Diff 03/20/2019 [facility] White Blood Count 7.6 Normal 3.5- 10. [phone] 10^3/uL 8 Red Blood Count 4.11 10^6/uL Low 4.18-5.48 Hemoglobin 12.5 g/dL Low 14.0-18.0 Hematocrit 38 % Low 42-52 Mean Corpuscular Volume 92 fL Normal 80-94 Mean Corpuscular Hemoglobin 30 pg Normal 27-31 Mean Corpuscular HGB Conc 33 g/dL Normal 31-36 Red Cell Distribution Width 17 % High 10-15 Platelet Count 216 10^3/uL Normal 150-450 Mean Platelet Volume 8.0 fL Normal 7.4-10.4 Abs Neutrophils 5.2 10^3/uL Normal 1.5-7.7 Abs Lymphocytes 1.3 10^3/uL Normal 1.0-4.8 Abs Monocytes 0.8 10^3/uL Normal 0-0.8 Abs Eosinophils 0.3 10^3/uL Normal 0-0.6 Abs Basophils 0.1 10^3/uL Normal 0-0.2 Abs Nucleated RBC 0.0 10^3/uL Granulocyte % 68.5 % Lymphocyte % 16.8 % Monocyte % 10.0 % Eosinophil % 3.8 % Basophil % 0.9 % Nucleated Red Blood Cells % 0.1 Retic Count 03/20/2019 [facility] Retic Count 1.7 % High 0.5-1.5 [phone] Corrected Retic Count 1.4 % Normal 0.5-1.5 Maturation Factor Retic 1.5 Retic Index 0.90 Mean Retic Volume 110.7 Immature Retic Fraction 0.44 RBC Retic Count 4.11 10^6/uL Low 4.18-5.48 Hematocrit for Retic CNT 38 % Low 42-52 Retic Count 03/13/2019 [facility] Retic Count 2.0 % High 0.5-1.5 [phone] Corrected Retic Count 1.6 % High 0.5-1.5 Maturation Factor Retic 1.5 Retic Index 1.10 Mean Retic Volume 123.2 Immature Retic Fraction 0.42 RBC Retic Count 3.81 10^6/uL Low 4.18-5.48 Hematocrit for Retic CNT 35 % Low 42-52 Iron & Iron Binding Capacity 03/13/2019 [facility] Iron 53 g/dL Normal 50-212 [phone] Unsaturated Iron Binding < 349 g/dL Total Iron Binding Capacity 364 g/dL Normal 250-450 Transferrin 260 mg/dL Normal 203-362 % Iron Saturation 15 % Normal 15-55 Laboratory test 03/13/2019 [facility] Ferritin 33.0 ng/mL Normal 24- 336 finding [phone] Comp Metabolic Panel 03/13/2019 [facility] Sodium 140 mmol/L Normal 135-145 [phone] Potassium 4.1 mmol/L Normal 3.5-5.0 Chloride 104 mmol/L Normal 101-111 Co2 Carbon Dioxide 26 mmol/L Normal 22-32 Anion Gap 10 mmol/L Normal 2-11 Glucose 203 mg/dL High 70-100 Blood Urea Nitrogen 31 mg/dL High 6-24 Creatinine 1.30 mg/dL High 0.67-1.17 BUN/Creatinine Ratio 23.8 High 8-20 Calcium 9.7 mg/dL Normal 8.6-10.3 Total Protein 7.7 g/dL Normal 6.4-8.9 Albumin 3.8 g/dL Normal 3.2-5.2 Globulin 3.9 g/dL Normal 2-4 Albumin/Globulin Ratio 1.0 Normal 1-3 Total Bilirubin 0.90 mg/dL Normal 0.2-1.0 Alkaline Phosphatase 71 U/L Normal 34-104 Alt 19 U/L Normal 7-52 Ast 17 U/L Normal 13-39 Egfr Non- 54.1 >60 Egfr 65.5 >60 6 CBC Auto Diff 03/13/2019 [facility] White Blood 7.1 10^3/uL Normal 3.5-10.8 [phone] Count Red Blood Count 3.81 10^6/uL Low 4.18-5.48 Hemoglobin 11.6 g/dL Low 14.0-18.0 Hematocrit 35 % Low 42-52 Mean Corpuscular Volume 92 fL Normal 80-94 Mean Corpuscular Hemoglobin 30 pg Normal 27-31 Mean Corpuscular HGB Conc 33 g/dL Normal 31-36 Red Cell Distribution Width 17 % High 10-15 Platelet Count 200 10^3/uL Normal 150-450 Mean Platelet Volume 7.7 fL Normal 7.4-10.4 Abs Neutrophils 4.7 10^3/uL Normal 1.5-7.7 Abs Lymphocytes 1.3 10^3/uL Normal 1.0-4.8 Abs Monocytes 0.7 10^3/uL Normal 0-0.8 Abs Eosinophils 0.3 10^3/uL Normal 0-0.6 Abs Basophils 0.1 10^3/uL Normal 0-0.2 Abs Nucleated RBC 0.0 10^3/uL Granulocyte % 66.2 % Lymphocyte % 18.6 % Monocyte % 10.4 % Eosinophil % 4.0 % Basophil % 0.8 % Nucleated Red Blood Cells % 0.0 CBC No Diff 01/17/2019 [facility] White Blood Count 5.8 10^3/uL Normal 3.5-10.8 7 [phone] Red Blood Count 3.74 10^6/uL Low 4.18-5.48 Hemoglobin 10.9 g/dL Low 14.0-18.0 Hematocrit 34 % Low 42-52 Mean Corpuscular Volume 91 fL Normal 80-94 Mean Corpuscular Hemoglobin 29 pg Normal 27-31 Mean Corpuscular HGB Conc 32 g/dL Normal 31-36 Red Cell Distribution Width 18 % High 10-15 Platelet Count 187 10^3/uL Normal 150-450 Mean Platelet Volume 8.1 fL Normal 7.4-10.4 Comp Metabolic Panel 01/17/2019 [facility] Sodium 140 mmol/L Normal 135-145 [phone] Potassium 4.6 mmol/L Normal 3.5-5.0 Chloride 108 mmol/L Normal 101-111 Co2 Carbon Dioxide 24 mmol/L Normal 22-32 Anion Gap 8 mmol/L Normal 2-11 Calcium 9.6 mg/dL Normal 8.6-10.3 Albumin 3.6 g/dL Normal 3.2-5.2 Total Bilirubin 0.60 mg/dL Normal 0.2-1.0 Glucose 215 mg/dL High 70-100 Blood Urea Nitrogen 22 mg/dL Normal 6-24 Creatinine 1.24 mg/dL High 0.67-1.17 BUN/Creatinine Ratio 17.7 Normal 8-20 Total Protein 6.9 g/dL Normal 6.4-8.9 Globulin 3.3 g/dL Normal 2-4 Albumin/Globulin Ratio 1.1 Normal 1-3 Alkaline Phosphatase 81 U/L Normal 34-104 Alt 22 U/L Normal 7-52 Ast 23 U/L Normal 13-39 Egfr Non- 57.1 >60 Egfr 69.1 >60 8 Laboratory test 01/17/2019 [facility] C Reactive 1.51 mg/L Normal < 8.01 9 finding [phone] Protein Laboratory test 01/09/2019 In House Hemoglobin A1c 7.1 finding CBC Auto Diff 01/09/2019 [facility] White Blood 5.8 Normal 3.5-10.8 [phone] Count 10^3/uL Red Blood Count 3.72 10^6/uL Low 4.18-5.48 Hemoglobin 10.8 g/dL Low 14.0-18.0 Hematocrit 33 % Low 42-52 Mean Corpuscular Volume 88 fL Normal 80-94 Mean Corpuscular Hemoglobin 29 pg Normal 27-31 Mean Corpuscular HGB Conc 33 g/dL Normal 31-36 Red Cell Distribution Width 17 % High 10.5-15 Platelet Count 206 10^3/uL Normal 150-450 Mean Platelet Volume 8.1 fL Normal 7.4-10.4 Abs Neutrophils 3.8 10^3/uL Normal 1.5-7.7 Abs Lymphocytes 1.1 10^3/uL Normal 1.0-4.8 Abs Monocytes 0.6 10^3/uL Normal 0-0.8 Abs Eosinophils 0.4 10^3/uL Normal 0-0.6 Abs Basophils 0.1 10^3/uL Normal 0-0.2 Abs Nucleated RBC 0.0 10^3/uL Granulocyte % 64.9 % Lymphocyte % 18.5 % Monocyte % 9.4 % Eosinophil % 6.2 % Basophil % 1.0 % Nucleated Red Blood Cells % 0.0 Comp Metabolic Panel 01/09/2019 [facility] Sodium 139 mmol/L Normal 135-145 [phone] Potassium 4.5 mmol/L Normal 3.5-5.0 Chloride 105 mmol/L Normal 101-111 Co2 Carbon Dioxide 27 mmol/L Normal 22-32 Anion Gap 7 mmol/L Normal 2-11 Calcium 9.4 mg/dL Normal 8.6-10.3 Albumin 3.6 g/dL Normal 3.2-5.2 Total Bilirubin 1.00 mg/dL Normal 0.2-1.0 Glucose 155 mg/dL High 70-100 Blood Urea Nitrogen 25 mg/dL High 6-24 Creatinine 1.21 mg/dL High 0.67-1.17 BUN/Creatinine Ratio 20.7 High 8-20 Total Protein 7.3 g/dL Normal 6.4-8.9 Globulin 3.7 g/dL Normal 2-4 Albumin/Globulin Ratio 1.0 Normal 1-3 Alkaline Phosphatase 75 U/L Normal 34-104 Alt 30 U/L Normal 7-52 Ast 28 U/L Normal 13-39 Egfr Non- 58.8 >60 Egfr 71.1 >60 10 Laboratory test 01/09/2019 [facility] C Reactive 3.84 mg/L Normal < 8.01 finding [phone] Protein 1 [id number] 2 [employer]: [id number] 3 Suboptimal collection technique may reduce sensitivity of test. Refer to the [facility] Lab Test Catalog for collection information: [email or web address] As with all diagnostic procedures, the laboratory results obtained should be used in conjunction with other clinical information available to the physician, including confirmation by another method, as applicable. 4 Standard intensity warfarin therapeutic range: 2.0-3.0 High intensity warfarin therapeutic range: 2.5-3.5 5 Because ethnic data is not always readily available, this report includes an eGFR for both -Americans and non- Americans. The National Kidney Disease Education Program (NKDEP) does not endorse the use of the MDRD equation for patients that are not between the ages of 18 and 70, are , have extremes of body size, muscle mass, or nutritional status, or are non- or non-. According to the National Kidney Foundation, irrespective of diagnosis, the stage of the disease is based on the level of kidney function: Stage Description GFR(mL/min/1.73 m(2)) 1 Kidney damage with normal or decreased GFR 90 2 Kidney damage with mild decrease in GFR 60-89 3 Moderate decrease in GFR 30-59 4 Severe decrease in GFR 15-29 5 Kidney failure <15 (or dialysis) 6 Because ethnic data is not always readily available, this report includes an eGFR for both -Americans and non- Americans. The National Kidney Disease Education Program (NKDEP) does not endorse the use of the MDRD equation for patients that are not between the ages of 18 and 70, are , have extremes of body size, muscle mass, or nutritional status, or are non- or non-. According to the National Kidney Foundation, irrespective of diagnosis, the stage of the disease is based on the level of kidney function: Stage Description GFR(mL/min/1.73 m(2)) 1 Kidney damage with normal or decreased GFR 90 2 Kidney damage with mild decrease in GFR 60-89 3 Moderate decrease in GFR 30-59 4 Severe decrease in GFR 15-29 5 Kidney failure <15 (or dialysis) 7 [id number] 8 Because ethnic data is not always readily available, this report includes an eGFR for both -Americans and non- Americans. The National Kidney Disease Education Program (NKDEP) does not endorse the use of the MDRD equation for patients that are not between the ages of 18 and 70, are , have extremes of body size, muscle mass, or nutritional status, or are non- or non-. According to the National Kidney Foundation, irrespective of diagnosis, the stage of the disease is based on the level of kidney function: Stage Description GFR(mL/min/1.73 m(2)) 1 Kidney damage with normal or decreased GFR 90 2 Kidney damage with mild decrease in GFR 60-89 3 Moderate decrease in GFR 30-59 4 Severe decrease in GFR 15-29 5 Kidney failure <15 (or dialysis) 9 [id number] 10 Because ethnic data is not always readily available, this report includes an eGFR for both -Americans and non- Americans. The National Kidney Disease Education Program (NKDEP) does not endorse the use of the MDRD equation for patients that are not between the ages of 18 and 70, are , have extremes of body size, muscle mass, or nutritional status, or are non- or non-. According to the National Kidney Foundation, irrespective of diagnosis, the stage of the disease is based on the level of kidney function: Stage Description GFR(mL/min/1.73 m(2)) 1 Kidney damage with normal or decreased GFR 90 2 Kidney damage with mild decrease in GFR 60-89 3 Moderate decrease in GFR 30-59 4 Severe decrease in GFR 15-29 5 Kidney failure <15 (or dialysis) Procedures Date Code Description Status 03/07/2019 [id number] Diabetic Foot Exam Completed 09/08/2015 [id number] Colonoscopy Completed Medical Devices Description No Information Available Encounters Type Date Location Provider Dx Diagnosis Office Visit 07/09/2019 Main Office Pedro Gillespie J11.89 Influenza due to 10:45a D.O. 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 mellitus with hyperglycemia D50.9 Iron deficiency anemia, unspecified K92.1 Melena I10 Essential (primary) hypertension J45.40 Moderate persistent asthma, uncomplicated K21.9 Gastro-esophageal reflux disease without esophagitis Office Visit 03/20/2019 1:45p Main Office Pedro Gillespie, D50.9 Iron deficiency D.O. anemia, unspecified K92.1 Melena I10 Essential (primary) hypertension E11.65 Type 2 diabetes mellitus with hyperglycemia Office Visit 03/12/2019 4:45p Main Office Pedro Gillespie, I10 Essential ( primary) D.O. hypertension E11.65 Type 2 diabetes mellitus with hyperglycemia D50.9 Iron deficiency anemia, unspecified R19.7 Diarrhea, unspecified K92.1 Melena Office Visit 01/09/2019 1:45p Main Office Pedro Gillespie, Z68.41 Body mass index D.O. (BMI) 40.0-44.9, adult E11.65 Type 2 diabetes mellitus with hyperglycemia I10 Essential (primary) hypertension E53.8 Deficiency of other specified B group vitamins E83.42 Hypomagnesemia A41.51 Sepsis due to Escherichia coli [E. coli] Z16.12 Extended spectrum beta lactamase (Esbl) resistance I20.8 Other forms of angina pectoris Assessments Date Code Description Provider 07/09/2019 J11.89 Influenza due to unidentified influenza virus Pedro Gillespie D.O. with other manifestations 07/09/2019 I10 Essential (primary) hypertension Pedro Gillespie D.ODamien 07/09/2019 J45.40 Moderate persistent asthma, uncomplicated S[place] Pedro, D.O. 07/09/2019 K21.9 Gastro-esophageal reflux disease without Sopchak, Pedro, D.O. esophagitis 07/09/2019 E11.69 Type 2 diabetes mellitus with other specified Soptyronek Pedro, D.O. complication 07/09/2019 Z79.4 prison (current) use of insulin Etta Gillespieon, D.O. 04/12/2019 E11.65 Type 2 diabetes mellitus with hyperglycemia Veek Pedro , D.O. 04/12/2019 D50.9 Iron deficiency anemia, unspecified Sopchak, Pedro, D.O. 04/12/2019 K92.1 MelEtta Dillonon, D.O. 04/12/2019 I10 Essential (primary) hypertension Etta Gillespieon, D.O. 04/12/2019 J45.40 Moderate persistent asthma, uncomplicated Sopchak, Pedro, D.O. 04/12/2019 K21.9 Gastro-esophageal reflux disease without Soptyronek Pedro, D.O. esophagitis 03/20/2019 D50.9 Iron deficiency anemia, unspecified Sopchak, Pedro, D.O. 03/20/2019 K92.1 Melbrielle Etta Gillespieon, D.O. 03/20/2019 I10 Essential (primary) hypertension Veek Pedro, D.O. 03/20/2019 E11.65 Type 2 diabetes mellitus with hyperglycemia VeekEttaon , D.O. 03/12/2019 I10 Essential (primary) hypertension Veek Pedro, D.O. 03/12/2019 E11.65 Type 2 diabetes mellitus with hyperglycemia Veek Pedro , D.O. 03/12/2019 D50.9 Iron deficiency anemia, unspecified Soptyronek Pedro, D.O. 03/12/2019 R19.7 Diarrhea, unspecified Sopchak, Pedro, D.O. 03/12/2019 K92.1 JenniferEtta Dillonon, D.O. 01/09/2019 Z68.41 Body mass index (BMI) 40.0-44.9, adult Etta GillespieBreann truong 01/09/2019 E11.65 Type 2 diabetes mellitus with hyperglycemia Pedro Gillespie D.O. 01/09/2019 I10 Essential (primary) hypertension Pedro Gillespie D.O. 01/09/2019 E53.8 Deficiency of other specified B group vitamins Pedro Gillespie D.O. 01/09/2019 E83.42 Hypomagnesemia Pedro Gillespie D.O. 01/09/2019 A41.51 Sepsis due to Escherichia coli [E. coli] Pedro Gillespie D.O. 01/09/2019 Z16.12 Extended spectrum beta lactamase (Esbl) Pedro Gillespie D.O. resistance 01/09/2019 I20.8 Other forms of angina pectoris Pedro Gillespie D.O. Plan of Treatment Future Appointment(s):07/30/2019 10:00 am - Pedro Gillespie D.O. at Main [id number]/09/2019 - Pedro Gillespie D.O.J11.89 Influenza due to unidentified influenza virus with other manifestationsNew Medication:Oseltamivir Phosphate 75 mg - 1 by mouth twice daily for 5 days.Follow up:as [id number] Essential ( primary) putbkpwsqqmjN07.40 Moderate persistent asthma, fsunrxinysenvW65.9 Gastro-esophageal reflux disease without tnnkgmbznylZ22.69 Type 2 diabetes mellitus with other specified rykhcadyyaksN98.4 prison (current) use of insulin Functional Status Description No Information Available Mental Status Description No Information Available Referrals Refer to Dr Reason for Referral Status Appt Date [facility] Dark blood in stools since starting Closed 2018 eliquis. Also recently increased on iron supplement. Has chronic anemia. Also atrial fibrillation. Was planned for colonoscopy which was cancelled after recent [place] and a.fib. Consult and Treat [facility] [place] [address] [phone]
[2019-07-13 14:14] LABS: Urine Appearance Cloudy; Urine Bilirubin Negative (Negative); Urine Blood 1+ (Negative); Urine Color Yellow; Urine Glucose 3+(>=500 mg/dL) (Negative); Urine Ketones Negative (Negative); Urine Nitrite Negative (Negative); Urine Protein Negative (Negative); Urine Specific Gravity 1.006 (1.010-1.030); Urine Urobilinogen Negative (Negative)
[2019-07-13 14:14] LABS: ABS Eosinophils 0.2 10^3/ul (0-0.6); ABS Lymphocytes 0.5 10^3/ul (1.0-4.8); ABS Monocytes 0.7 10^3/ul (0-0.8); ABS Neutrophils 2.6 10^3/ul (1.5-7.7); Eosinophil % 4.4 %; Hematocrit 35 % (42-52); Hemoglobin 11.8 g/dL (14.0-18.0); Lymphocyte % 13.2 %; Mean Corpuscular HGB Conc 33 g/dL (31-36); Mean Corpuscular Hemoglobin 30 pg (27-31); Mean Corpuscular Volume 89 fL (80-94); Mean Platelet Volume 8.1 fL (7.4-10.4); Nucleated Red Blood Cells % 0.3; Platelet Count 183 10^3/uL (150-450); Red Blood Count 3.97 10^6 /uL (4.18-5.48); Red Cell Distribution Width 17 % (10-15); White Blood Count 4.1 10^3/uL (3.5-10.8)
[2019-07-13 14:26] LABS: Urine Bacteria Absent (Absent); Urine Red Blood Cell 1+(3-5/hpf) (Absent); Urine Squamous Epithelial Cell Present (Absent); Urine White Blood Cell Trace(0-5/hpf) (Absent)
[2019-07-13 14:28] LABS: Activated Partial Thrombo Time 38.6 seconds (26.0-38.0); INR 2.46 (0.82-1.09)
[2019-07-13 14:31] LABS: ALT 16 U/L (7-52); AST 22 U/L (13-39); Albumin 3.5 g/dL (3.2-5.2); Albumin/Globulin Ratio 0.8 (1-3); Alkaline Phosphatase 75 U/L (34-104); Anion Gap 9 mmol/L (2-11); BUN/Creatinine Ratio 13.1 (8-20); Blood Urea Nitrogen 24 mg/dL (6-24); C Reactive Protein 84.56 mg/L (<8.01); CO2 Carbon Dioxide 24 mmol/L (22-32); Calcium 9.4 mg/dL (8.6-10.3); Chloride 100 mmol/L (101-111); EGFR African American 44.1 (>60); EGFR Non-African American 36.5 (>60); Globulin 4.4 g/dL (2-4); Glucose 121 mg/dL (70-100); Magnesium 1.6 mg/dL (1.9-2.7); Potassium 3.5 mmol/L (3.5-5.0); Sodium 133 mmol/L (135-145); Total Protein 7.9 g/dL (6.4-8.9)
[2019-07-13 14:35] LABS: CKMB ng/mL 3.9 ng/mL (0.6-6.3)
[2019-07-13 14:38] LABS: Troponin I 0.24 ng/mL (<0.03)
[2019-07-13] MEDS ORDERED: NS 0.9% 1000 ML** 1,000 ML IV SCH ×2 (14:45→17:00)
[2019-07-13] MEDS ORDERED: Potassium Chlor TAB* 20 MEQ TAB.ER PO ONE (16:04)
[2019-07-13] MEDS ORDERED: Magnesium Sulfate 2 GM IV* 2 GM/50 ML BAG IVPB ONE (16:04)
[2019-07-13] MEDS ORDERED: Albuterol 2.5 MG/3 ML NEB.SOL* (0.083%) INH PRN (16:53)
[2019-07-13] MEDS ORDERED: Nitroglycerin TAB 0.4 MG* 0.4 MG TAB SL PRN (16:53)
[2019-07-13 17:10] LABS: Hematocrit 33 % (42-52); Hemoglobin 11.2 g/dL (14.0-18.0); Mean Corpuscular HGB Conc 34 g/dL (31-36); Mean Corpuscular Hemoglobin 30 pg (27-31); Mean Corpuscular Volume 89 fL (80-94); Platelet Count 187 10^3/uL (150-450); Red Blood Count 3.72 10^6 /uL (4.18-5.48); Red Cell Distribution Width 17 % (10-15)
[2019-07-13 17:23] LABS: Anion Gap 8 mmol/L (2-11); BUN/Creatinine Ratio 14.4 (8-20); Blood Urea Nitrogen 24 mg/dL (6-24); CO2 Carbon Dioxide 24 mmol/L (22-32); Chloride 103 mmol/L (101-111); EGFR Non-African American 40.5 (>60); Glucose 77 mg/dL (70-100); Potassium 3.5 mmol/L (3.5-5.0); Sodium 135 mmol/L (135-145)
--- NOTE | 2019-07-13 17:27 | HP ---
History of Present Illness - History of Present Illness Reason for Visit: Hematochezia-5 days History of Present Illness: This is a 73 y/o M with multiple medical problems presented with generalized weakness and blood in stool. According to patient he was apparently well 1 week ago when he had flu like symptoms-chills,malaise, myalgia, runny nose, dry cough and visited his PCP. He was given tamiflu suspecting although the flu test was negative later. After 1 day he started having diarrhea which was acute on onset, 6-8 times per day although small in amount but was watery. It was associated with abdominal cramps but he denies nausea and vomiting. Then he noticed blood in stool but he ignored it. And then he started to feel weak and tired and today he also noticed small clots and that prompted him to come to the emergency department. He denies fever, nausea, vomiting, body cramps, recent antibiotic use, travel or sick contacts. He denies chest pain, shortness of breath, palpitation, numbness and tingling. He adds that he was not eating and drinking much during this period. In ED His vitals are stable. Blood work without any significant abnormality except for slight anemia with hemoglobin 11.8 and hematocrit 35, INR 2.46, PTT of 38.6 , sodium is 133, chloride 100, creatinine 1.83, glucose 121, lactic acid is 2.8 , the patient 1.6, troponin 0.24, CRP over 84.5, BNP 301, globin 4.5. Urinalysis is abnormal probably contamination. Chest x-ray impression: Cardiomegaly with suspected interstitial and alveolar pulmonary edema. Bi- basilar infiltrate could have similar appearance. Occult blood test is positive. EKG at 1336 shows afib at [address] depressions and T wave inversions in leads I, II, III, aVF, V2, V3, V4, V5, V6. Similar to prior EKG on 12/17/18. He was given IV fluid and admitted to medical floor. - Past Medical History Past Medical History: 1. Coronary Artery Disease s/p CABG and stenting; Total of 5; recent in December 2018. 2. Morbid Obesity 3. Asthma 4. Bronchiectasis 5. CHA on CPAP 6. Allergic Rhinitis 7. Heart failure with reduced EF 8. Atrial Fibrillation 9. Prostate Cancer s/p external beam radiation 10. Insulin dependent Diabetes Mellitus - Past Surgical History Past Surgical History: 1. CABG 2. Stent palcement 3. Tonsillectomy 4. Scar tissue removal from urinary tract - Past Family History Past Family History: Father with heart disease and hypertension. Brother with history of heart disease. HAs one daughter and is healthy. - Past Social History Past Social History: He lives with his . He has history of smoking and quit in 1972. He denies history of alcohol or drug use. his HCP is his -Jyotsna Sidhu([phone] and [phone]). he is full code. Review of Systems - Review of Systems Constitutional: Positive: Chills, Weakness. Negative: Fever, Sweats, Malaise, Other Eyes: Negative: Pain, Vision Change, Conjunctivae Inflammation, Eyelid Inflammation, Redness, Other ENT: Negative: Ear Pain, Ear Discharge, Nose Pain, Nose Discharge, Nose Congestion, Mouth Pain, Mouth Swelling, Throat Pain, Throat Swelling, Other Respiratory: Positive: Cough. Negative: Dry, Shortness of Breath, Hemoptysis, SOB with Excertion, Pleuritic Pain, Sputum, Wheezing Cardiovascular: Negative: Chest Pain, Palpitations, Orthopnea, Paroxysmal Noc. Dyspnea, Edema, Light Headedness, Other Gastrointestinal: Positive: Diarrhea, Hematochezia. Negative: Nausea, Vomiting , Abdominal Pain, Constipation, Melena, Other Genitourinary: Positive: Frequency. Negative: Dysuria, Incontinence, Hematuria , Retention, Other Musculoskeletal: Negative: Neck Pain, Shoulder Pain, Arm Pain, Back Pain, Hand Pain, Leg Pain, Foot Pain, Other Skin: Negative: Rash, Lesions, Sage, Bruising, Other Neurological: Negative: Weakness, Numbness, Incoordination, Change in Speech, Confusion, Seizures, Other - Medications/Allergies Allergies/Adverse Reactions: Allergies Allergy/AdvReac Type Severity Reaction Status Date / Time COY Inhibitors Allergy Coughing Verified 02/15/19 08:47 atorvastatin Allergy Muscle Ache Verified 01/15/19 08:11 cephalexin [From Keflex] Allergy Swelling Verified 02/15/19 08:47 losartan [From Cozaar] Allergy Unknown Verified 02/15/19 08:47 Reaction Details Penicillins Allergy Swelling Verified 02/15/19 08:47 ramipril [From Altace] Allergy Unknown Verified 02/15/19 08:47 Reaction Details Tetanus Vaccines and Toxoid Allergy Unknown Verified 02/15/19 08:47 Reaction Details Medications: Current Medications Albuterol (Ventolin 2.5 Mg/3 Ml Neb.Leelee*) 2.5 mg INH Q6H PRN PRN Reason: SOB/WHEEZING Cetirizine HCl (Zyrtec*) 10 mg PO DAILY [facility] Empagliflozin (Jardiance (Nf)) 10 mg PO DAILY [facility] Sodium Chloride (Ns 0.9% 1000 Ml) 1,000 mls @ 100 mls/hr IV PER RATE [facility]I Stop: 07/15/19 02:59 Insulin Glargine (Lantus(*)) 45 units SUBCUT BID [facility] Mometasone Furoate (Asmanex 220 Mcg Mdi *) 2 puff INH DAILY [facility]I; Protocol Montelukast Sodium (Singulair Tab*) 10 mg PO DAILY [facility] Nitroglycerin (Nitroglycerin Tab 0.4 Mg*) 0.4 mg SL Q5M PRN PRN Reason: PAIN - CHEST Pantoprazole Sodium (Protonix Tab*) 40 mg PO QAM [facility] Potassium Chloride (Klor Con Er Tab*) 10 meq PO DAILY [facility] Simvastatin (Zocor (Nf)) 80 mg PO BEDTIME [facility] Sodium Chloride (Sodium Chloride(Inhalant) 3%*) ml INH Q12H [facility]I Exam Vital Signs: Vital Signs (72 hours) 07/13/19 07/13/19 07/13/19 13:15 14:11 14:12 Temperature 98.1 F Pulse Rate 76 66 74 Respiratory 18 20 22 Rate Blood Pressure 100/67 (mmHg) O2 Sat by Pulse 96 92 93 Oximetry 07/13/19 14:14 Temperature Pulse Rate 75 Respiratory 18 Rate Blood Pressure 92/63 (mmHg) O2 Sat by Pulse 94 Oximetry Exam: Patient is lying on a bed in supine position and is not in acute dstress. HEENT: Normocephalic and atraumatic. Sclera anicteric. EOMI. PERRLA. Neck: No lymphadenopathy and enlarged thyroid. NO JVD elevation. Lungs: Good respiratory effort and chest expansion. Clear with no added sound. Heart: Normal in rate and rhythm. S1/S2 heard with + murmur, but rubs or gallops. Abdomen: Soft, nondistended and nontender. Normal BS heard. Extremities; No swelling, cyanosis or clubbing Neuro: Alert, oriented and coperative. CN intact. Motor nomral and sensation intact. Assessment/Plan - Assessment/Plan Assessment: This is a 73 y/o M with multiple medical problem presented with diarrhea, weakness and hematochezia. Found to have lower GI bleed, elevated lactate and troponin. Plan: 1. Lower GI Bleed: He is on blood thinner- anticoagulant and antiplatelet. he has a history of multiple polyp in colon which was normal in biopsy. There is concern from bleeding so we will ask GI to evaluate him for possible colonoscopy or Flex sigmoidoscopy. His Hb is stable so there is no indication for transfusion. As his BP is on soft side We will give him IV fluids. 2. Diarrhea: He had cold before diarrhea. It could be Gastroenteritis. We will order stool test and monitor him. His diarrhea is resolving. 3. Lactic Acidosis: There is no sign of infection. So this could be from dehydration. We will repeat lactic acid again. 4. Elevated Troponin: Asymptomatic and EKG has no new changes.. Looks like demand ischemia. We will trend it. 5. Abnormal urianlysis: Looks like contaminant. We will wait for urine culture and not give antibiotic at present. 6. Electrolyte abnormality: Low magnesium. We will replete it. 7. Heart Failure: We will hold his diuretics and metoprolol and spironolactone given his low BP. 8. DM: We will give him insulin glargine and hold his metformin given his lactic acidosis. 9. Asthma: Continue home inhalers. 10. CHA: Continue CPAP 10. DVT prophylaxis: SCD 11. full code Attestation Documenting Resident: Dania Diaz Supervising Physician: Simona Oviedo Attestation: This service has been performed in part by a resident under the direction of a teaching physician.I, Simona Oviedo, performed the service, or was physically present during the critical, or bermudez portions of the service, furnished by the resident. I participated in the management of the patient.
[2019-07-13 17:30] LABS: Troponin I 0.26 ng/mL (<0.03)
--- NOTE | 2019-07-13 18:35 | CONS ---
CC: Primary Care Physician; Dr. Easley CONSULTATION REPORT: DATE OF CONSULT: 07/13/19 REQUESTING PHYSICIAN: Simona Oviedo MD. INDICATION: Heme-positive stool. NARRATIVE: Mr. Soto is a pleasant 73-year-old gentleman, who has a history of diabetes, coronary art ilan disease, severe ischemic heart disease, history of E. coli UTI leading to sepsis, history of edda l failure, history of myocardial infarction due to sepsis, long history of anemia, asthma, who was in his normal state of health until earlier this week. He states on Tuesday he developed flu-like sympto ms and went to see his primary care physician. His primary care physician also thought that the barbara ent had flu, so he was given Tamiflu and he then the next day began having diarrhea. He continued to have myalgias, weakness, fatigue in addition to the diarrhea. He states on either Tuesday or day he noticed some dark red blood in the stool. He denied any pushing or straining, but was having frequent loose stools. He denies any abdominal pain. He is on blood thinners. He states that on , he was feeling a little bit better. On night, he had a very large loose stool and t hen by this morning when he awoke, he noted some dark red blood in his underwear and he had received word from his primary care physician that he tested negative for the flu and he and his were con cerned about what his flu-like symptoms were due to, thus they presented to the emergency room. The patient's last colonoscopy was in [address] Quesada. Multiple small polyps were removed. He did have sigmoid diverticulosis. No hemorrhoids were noted. He had seen his new gastroenterolog ist, Dr. Easley, in November of this year to discuss another colonoscopy; however, he had multiple medi chace issues in December that prevented him from having the colonoscopy. PAST SURGICAL HISTORY: Includes coronary artery stents. CURRENT MEDICATIONS: Include: 1. Albuterol. 2. Aspirin. 3. Plavix 75 mg. 4. Fluticasone. 5. Lasix 20 mg. 6. Hydralazine 25 mg twice a day. 7. Insulin. 8. Magnesium. 9. Singulair. 10. Nitroglycerin. 11. Protonix. 12. Zocor. 13. Aldactone. 14. Terazosin. ALLERGIES: He is allergic to PENICILLIN, TETANUS, KEFLEX, ALTACE, COZAAR and COY INHIBITORS. FAMILY HISTORY: Positive for coronary artery disease. No colorectal cancer. SOCIAL HISTORY: He quit smoking, rare alcohol. PHYSICAL EXAM: On physical exam, temperature is 98.1, blood pressure is 100/67, pulse is 76, respira tory rate of 18, O2 sat is 96% on room air. General: Chronically ill-appearing male, appears older t moreno stated age. Alert, oriented, pleasant, fluent. HEENT: Mucous membranes are moist without lesio ns, ulcers, or exudate. Neck is supple. Trachea is midline. Head is normocephalic, atraumatic. Hear t: Irregular rate and rhythm. Lungs: Distant breath sounds. Abdomen: Morbidly obese. Positive madhav wel sounds. Soft, nontender, nondistended. Skin is warm and dry. DIAGNOSTIC STUDIES/LAB DATA: Of note, white count is 4, hemoglobin has gone from 11.8 to 11.2. Base line hemoglobin since the beginning of the year has ranged anywhere from 8.2 for a low to 12.5 as a h igh. He has been pretty much around 11 since 2013. Platelets of 187, INR is 2.46. BUN is normal at 2 4, creatinine is 1.67. Troponin is elevated at 0.26. ASSESSMENT AND PLAN: This is a 73-year-old gentleman admitted with flu-like symptoms who also was fo und to be heme positive, has noted a small amount of blood in the stool and is chronically anemic. T he patient is on both aspirin and Plavix. He has multiple reasons to have heme-positive stool and to see blood in the stool. He has been having diarrhea, very well it could have been a viral gastroenter itis. He tells me he tested negative for the flu. He very well could have hemorrhoids. He has had di verticulosis on his colonoscopy from 3 years ago. I am not worried about a colorectal malignancy. He is high risk for any procedures. At this point, given the fact that his vital signs are stable, his hemoglobin is relatively stable, I would recommend we continue to follow along conservatively. He d oes not need his aspirin or Plavix, held at this point. His BUN is normal. I doubt an upper gastroi ntestinal bleed. We will continue to monitor his stools and follow along. [id number]/[facility] #: [id number]
[2019-07-13] MEDS ORDERED: Metoprolol Tartrate TAB* 25 MG PO ONE (20:48)
--- NOTE | 2019-07-13 20:53 | PN ---
Hospitalist Progress Note Date of Service: 07/13/19 Nurse called regarding patient requesting metoprolol. Discussed in depth regarding metoprolol and how it can lower his BP. However patient is adamant he wants it he understands further hypotension could cause dizziness/fall/tia/ stroke. He says he's willing to sign a wavier for it as he's afraid he will have a heart attack. His current BP improved with IVF. After much discussion he' s ok with even getting 1/4th his usual dose with morning of the BP. Ordered 12.5mg PO 1x dose.
[2019-07-13] MEDS: Sodium Chloride(INHALANT) 3%* 4 ML NEB.SOLN INH SCH (21:00)
[2019-07-13] MEDS ORDERED: Simvastatin TAB(NF) 20 MG TAB PO SCH (21:00)
[2019-07-13] MEDS: Insulin GLARGINE(*) 1 UNITS UNIT SUBCUT SCH (21:44)
[2019-07-14 06:05] LABS: Hematocrit 31 % (42-52); Hemoglobin 10.6 g/dL (14.0-18.0); Mean Corpuscular HGB Conc 34 g/dL (31-36); Mean Corpuscular Hemoglobin 30 pg (27-31); Mean Corpuscular Volume 89 fL (80-94); Mean Platelet Volume 7.9 fL (7.4-10.4); Platelet Count 175 10^3/uL (150-450); Red Blood Count 3.54 10^6 /uL (4.18-5.48); Red Cell Distribution Width 17 % (10-15); White Blood Count 4.2 10^3/uL (3.5-10.8)
[2019-07-14 06:25] LABS: Anion Gap 8 mmol/L (2-11); BUN/Creatinine Ratio 15.6 (8-20); Blood Urea Nitrogen 25 mg/dL (6-24); CO2 Carbon Dioxide 23 mmol/L (22-32); Calcium 8.6 mg/dL (8.6-10.3); Chloride 103 mmol/L (101-111); EGFR African American 51.5 (>60); EGFR Non-African American 42.6 (>60); Glucose 126 mg/dL (70-100); Magnesium 1.9 mg/dL (1.9-2.7); Potassium 3.4 mmol/L (3.5-5.0); Sodium 134 mmol/L (135-145)
[2019-07-14 06:27] LABS: Troponin I 0.17 ng/mL (<0.03)
[2019-07-14] MEDS ORDERED: Magnesium Sulfate 2 GM IV* 2 GM/50 ML BAG IVPB ONE (06:39)
--- NOTE | 2019-07-14 06:49 | PN ---
Subjective Date of Service: 07/14/19 Interval History: HD 2 on 07/14 This is a 73 y/o M with multiple medical problem presented with diarrhea, weakness and hematochezia. Found to have anemia, elevated lactate and troponin. Most likely Gastroenteritis/?hemorrhoids Overnight events- No acute events Vitals stable Patient says he is feeling far more better than yesterday. He has not had any bowel movement since yesterday and no rectal bleeding. He denies chest pain, shortness of breath and palpitation. Objective Active Medications: Albuterol (Ventolin 2.5 Mg/3 Ml Neb.Leelee*) 2.5 mg INH Q6H PRN PRN Reason: SOB/WHEEZING Apixaban (Eliquis*) 5 mg PO BID [facility] Aspirin (Aspirin Ec Tab*) 81 mg PO DAILY [facility]I Cetirizine HCl (Zyrtec*) 10 mg PO DAILY [facility] Clopidogrel Bisulfate (Plavix Tab*) 75 mg PO DAILY [facility] Empagliflozin (Jardiance (Nf)) 10 mg PO DAILY [facility] Magnesium Sulfate (Magnesium Sulfate 2 Gm Iv*) 2 gm in 50 mls @ 50 mls/hr IVPB ONCE ONE Stop: 07/14/19 07:38 Insulin Glargine (Lantus(*)) 45 units SUBCUT BID [facility] Last Admin: 07/13/19 21:44 Dose: 45 units Mometasone Furoate (Asmanex 220 Mcg Mdi *) 2 puff INH DAILY [facility]; Protocol Montelukast Sodium (Singulair Tab*) 10 mg PO DAILY [facility] Nitroglycerin (Nitroglycerin Tab 0.4 Mg*) 0.4 mg SL Q5M PRN PRN Reason: PAIN - CHEST Pantoprazole Sodium (Protonix Tab*) 40 mg PO QAM [facility] Potassium Chloride (Klor Con Er Tab*) 10 meq PO DAILY [facility] Simvastatin (Zocor(Nf)) 80 mg PO BEDTIME [facility]I Last Admin: 07/13/19 21:35 Dose: 80 mg Sodium Chloride (Sodium Chloride(Inhalant) 3%*) 4 ml INH RT.BID [facility]I Last Admin: 07/13/19 21:00 Dose: 4 ml Vital Signs - 8 hr 07/13/19 07/14/19 23:59 03:07 Temperature 98.7 F 98.6 F Pulse Rate 111 63 Respiratory 16 16 Rate Blood Pressure 111/52 130/73 (mmHg) O2 Sat by Pulse 92 91 Oximetry Oxygen Devices in Use Now: None Exam: Patient is lying on a bed in supine position and is not in acute dstress. HEENT: Normocephalic and atraumatic. Sclera anicteric. EOMI. PERRLA. Neck: No lymphadenopathy and enlarged thyroid. NO JVD elevation. Lungs: Good respiratory effort and chest expansion. Clear with no added sound. Heart: Normal in rate and rhythm. S1/S2 heard with + murmur, but rubs or gallops. Abdomen: Soft, nondistended and nontender. Normal BS heard. Extremities; No swelling, cyanosis or clubbing Neuro: Alert, oriented and coperative. CN intact. Motor normal and sensation intact. Result Diagrams: 07/14/19 13:56 07/14/19 05:38 Assess/Plan/Problems-Billing Assessment: 73 y/o M with multiple medical problem presented with diarrhea, weakness and hematochezia. Found to have anemia, elevated lactate and troponin. Most likely Gastroenteritis/?hemorrhoids - Patient Problems (1) Hematochezia Current Visit: Yes Status: Acute Code(s): K92.1 - MELENA SNOMED Code(s): 521987956 Comment: -for 5 days that was on and off. -Associated with diarrhea and was painless -could be from divertivulosis, gastroenteritis or hemorrhoids -appreciate GI consult-can follow up as an outpatientwith Dr. del real -Hb stable (2) Diarrhea Current Visit: Yes Status: Acute Code(s): R19.7 - DIARRHEA, UNSPECIFIED SNOMED Code(s): 12162187 Comment: -was preceeded by cold symptoms -could be viral gastroenteritis -resolved -No BM since ED. -had low magneisum-repleted -was dehydraetd given his high LA and trops without leucocytosis - No signs of dehydration at present (3) Elevated troponin Current Visit: Yes Status: Acute Code(s): R79.89 - OTHER SPECIFIED ABNORMAL FINDINGS OF BLOOD CHEMISTRY SNOMED Code(s): 421926048 Comment: -Type II -downtrending -Asymptomatic (4) Asthma Current Visit: Yes Status: Acute Code(s): J45.909 - UNSPECIFIED ASTHMA, UNCOMPLICATED SNOMED Code(s): 449639580 Comment: -No e/o exacerbation at present -Continue home meds (5) Anemia Current Visit: No Status: Acute Code(s): D64.9 - ANEMIA, UNSPECIFIED SNOMED Code(s): 125544428 Comment: -has chronic anemia- got bood transfusion in december -Hb stable for now -Normocytic with low iron and ferritin-LIA -can follow up as outpt (6) CAD (coronary artery disease) Current Visit: No Status: Acute Code(s): I25.10 - ATHSCL HEART DISEASE OF [place] CORONARY ARTERY W/O ANG PCTRS SNOMED Code(s): 47577924 Comment: -has history of multiple [place] -s/p CABG and stent -Continue aspirin, plavix, eliquis, metoprolol, spironolactone -lasix on hold given recent low BP (7) Diabetes mellitus Current Visit: No Status: Acute Code(s): E11.9 - TYPE 2 DIABETES MELLITUS WITHOUT COMPLICATIONS SNOMED Code(s): 84835001 Comment: - cont Lantus (8) HLD (hyperlipidemia) Current Visit: No Status: Acute Code(s): E78.5 - HYPERLIPIDEMIA, UNSPECIFIED SNOMED Code(s): 70569468 Comment: simvastatin - may take own medication (9) HTN (hypertension) Current Visit: No Status: Acute Code(s): I10 - ESSENTIAL (PRIMARY) HYPERTENSION SNOMED Code(s): 27565057 Comment: -controlled -hydralazine on hold -continue metoprolol and spirolactone (10) CHA (obstructive sleep apnea) Current Visit: No Status: Acute Code(s): G47.33 - OBSTRUCTIVE SLEEP APNEA ( ADULT) (PEDIATRIC) SNOMED Code(s): 50545160 Comment: -On cpap (11) BPH (benign prostatic hyperplasia) Current Visit: No Status: Chronic Priority: Low Code(s): N40.0 - BENIGN PROSTATIC HYPERPLASIA WITHOUT LOWER URINRY TRACT SYMP SNOMED Code(s): 090520594 Comment: -terazosin on hold (12) GERD (gastroesophageal reflux disease) Current Visit: No Status: Chronic Priority: Low Code(s): K21.9 - GASTRO- ESOPHAGEAL REFLUX DISEASE WITHOUT ESOPHAGITIS SNOMED Code(s): 927424045 Comment: - continue pantoprazole (13) DVT prophylaxis Current Visit: No Status: Acute Code(s): FAX0448 - SNOMED Code(s): 374676586 Comment: -eliquis (14) Full code status Current Visit: Yes Status: Acute Code(s): Z78.9 - OTHER SPECIFIED HEALTH STATUS SNOMED Code(s): 262668749 Status and Disposition: Inpatient Attending: Simona Oviedo Attestation Documenting Resident: Dania Diaz Supervising Physician: Simona Oviedo Attending/Supervising Physician Comment: No diarrhea or blood passed during admission. Hgh with slight downtrend after IVF but then rebounded to baseline. Trop elevation reduced without intervention. Patient had no chest pain. EKG reviewed by Dr. Bean who states no intervention. Patient may resume maximal medical therapy for CAD and return home. Attestation: This service has been performed in part by a resident under the direction of a teaching physician.I, Simona Oviedo, performed the service, or was physically present during the critical, or bermudez portions of the service, furnished by the resident. I participated in the management of the patient.
[2019-07-14] MEDS: Sodium Chloride(INHALANT) 3%* 4 ML NEB.SOLN INH SCH (07:28)
[2019-07-14] MEDS ORDERED: Apixaban* 5 MG TAB PO SCH (09:00)
[2019-07-14] MEDS ORDERED: Cetirizine* 10 MG TAB PO SCH (09:00)
[2019-07-14] MEDS ORDERED: Potassium Chlor TAB* 10 MEQ TAB.ER PO SCH (09:00)
[2019-07-14] MEDS ORDERED: EMPAGLIFOZIN 10 MG PO SCH (09:00)
[2019-07-14] MEDS ORDERED: Montelukast Sodium TAB* 10 MG PO SCH ×2 (09:00→21:00)
[2019-07-14] MEDS ORDERED: Clopidogrel TAB* 75 MG PO SCH (09:00)
[2019-07-14] MEDS ORDERED: Pantoprazole TAB * 40 MG TAB PO SCH (09:00)
[2019-07-14] MEDS ORDERED: Aspirin EC TAB* 81 MG TAB.EC PO SCH (09:00)
[2019-07-14] MEDS ORDERED: Mometasone 220 MCG MDI INH SCH (09:00)
[2019-07-14] MEDS ORDERED: Fluticasone NASAL SPRAY 50MCG* 16 gm SPRAY BTL BOTH NARES PRN (09:05)
[2019-07-14] MEDS: Insulin GLARGINE(*) 1 UNITS UNIT SUBCUT SCH (09:10)
[2019-07-14] MEDS ORDERED: Spironolactone TAB* 25 MG PO SCH (09:15)
[2019-07-14] MEDS ORDERED: Metoprolol Tartrate TAB* 50 mg PO SCH (10:00)
--- NOTE | 2019-07-14 11:01 | PN ---
Progress Note - Progress Note Date of Service: 07/14/19 Note: GI fu pt doing well, no bm since yesterday, eating reg diet, no s/s bleeding, NO diarrhea, no abd pain feels well 97.3, 144/79, 78 nad, alert +bs, morbid obese, soft, nd/nt hgb 10.6<------ 11.2 BUN 25, cr 1.6, trop 0.17 Diarrhea and rectal bleeding; diarrhea resolved, no signs of bleeding will follow Cullen Dunbar MD [facility]
[2019-07-14] MEDS ORDERED: Potassium Chlor TAB* 20 MEQ TAB.ER PO ONE (13:13)
[2019-07-14 13:25] VITALS: BP 115/77
[2019-07-14 14:04] LABS: Hematocrit 34 % (42-52); Hemoglobin 11.5 g/dL (14.0-18.0); Mean Corpuscular HGB Conc 34 g/dL (31-36); Mean Corpuscular Hemoglobin 30 pg (27-31); Mean Corpuscular Volume 89 fL (80-94); Mean Platelet Volume 7.9 fL (7.4-10.4); Platelet Count 192 10^3/uL (150-450); Red Blood Count 3.84 10^6 /uL (4.18-5.48); Red Cell Distribution Width 17 % (10-15)
--- NOTE | 2019-07-14 20:54 | DS ---
CC: Dr. Pedro Gillespie * DISCHARGE SUMMARY: DATE OF ADMISSION: 07/13/19 DATE OF DISCHARGE: 07/14/19 PRIMARY CARE PROVIDER: Dr. Pedro Gillespie. PRIMARY DIAGNOSIS: Hematochezia possibly related to frequent diarrhea from gastroenteritis in the setting of known diverticulosis. SECONDARY DIAGNOSES: 1. Coronary artery disease, status post CABG and stenting. 2. Atrial fibrillation, on anticoagulation. 3. Hypertension. 4. Heart failure with reduced ejection fraction. 5. Diabetes, on insulin. CONSULTATION: Dr. Dunbar of Gastroenterology. DISCHARGE MEDICATIONS: 1. Apixaban 5 mg twice a day. 2. Aspirin 81 mg daily. 3. Clopidogrel 75 mg daily. 4. Glargine 45 units twice a day. 5. Empagliflozin 10 mg daily. 6. Isosorbide dinitrate 30 mg daily. 7. Metoprolol tartrate 50 mg twice a day. 8. Spironolactone 25 mg daily. 9. Simvastatin 80 mg at bedtime. 10. Potassium 10 mEq daily. 11. Pantoprazole 40 mg daily. 12. Montelukast 10 mg daily. 13. Mometasone 2 puffs daily. 14. Albuterol inhalation every 6 hours as needed for shortness of breath. 15. Cetirizine 10 mg daily. HISTORY OF PRESENT ILLNESS: Mr. Soto is a 73-year-old man with coronary artery disease, status post CABG and stenting most recently in December 2018; atrial fibrillation, on anticoagulation ; diabetes, on insulin; CHA on CPAP; morbid obesity; heart failure with reduced ejection fraction of 35%, who is presenting with 5 days of hematochezia. He reports feeling his USOH 1 week ago when he began to experience flu-like symptoms mostly chills, malaise, myalgias, runny nose, dry cough. He visited his PCP who suspected the flu, so he was started on oseltamivir; however, his flu test was subsequently negative. After approximately 1 day of these symptoms , he began to experience diarrhea approximately 6 to 8 movements per day although small amount, but solid stools mixed with water. He had abdominal cramping associated with diarrhea, but denied nausea and vomiting. Throughout this time, he had noticed small amounts of blood in his stool and occasionally clots. On the day of presentation, he started to feel progressively more weak and tired, so it prompted him to present to the emergency department. He denies recent antibiotic use, weight loss, travel, or sick contacts. He reports poor p.o. intake over the last week. HOSPITAL COURSE: In the emergency room, the patient's blood pressures were low normal and his CBC was notable for a mild anemia, but it was near his baseline. His creatinine was noted to be 1.83, which was slightly above his baseline. The patient was given gentle hydration with 2 L of normal saline and his blood pressure significantly improved. His antihypertensive and diuretics were also held, as well as his anticoagulation and antiplatelets, given GI bleed. He was seen and evaluated by the GI service, who did not recommend any intervention at this time as the patient's hemoglobin was stable and he had no further episodes of diarrhea or hematochezia during hospitalization. For this reason, we are unable to get stool cultures. The patient reported significant improvement in his symptoms after hydration and holding off his antihypertensives. By the next day, his hemoglobin was stable. It was deemed safe to restart his dual antiplatelets with anticoagulation. Several hours after restarting these medications, he still had no recurrence of blood in his stools. He did experience 1 solid bowel movement that was not bloody. The patient felt ready to go home and he was cleared by GI. Of note, the patient did have troponin elevation to 0.26, which appears chronic elevation for this patient with heart disease and chronic kidney disease. The patient denied chest pain throughout admission. It was thought this was demand ischemia in the setting of poor p.o. , low blood pressures and likely GI infection with diarrhea causing dehydration. His EKG was reviewed by Dr. Bean of Cardiology and recommended no intervention as this is likely a type 2 AL. The patient was monitored on telemetry and had no events. PERTINENT STUDIES: CBC notable for hemoglobin 11.5 with MCV 89, at baseline. BMP significant for mild hyponatremia to 134 with creatinine improved to 1.6, which is closer to the patient's baseline. Troponin peaked at 0.26. UA with 1+ blood, squamous epithelial cells and hyaline casts and also glucose. Urine culture was negative. Stool occult blood positive. MRSA swab positive. Chest x-ray: Cardiomegaly with suspected interstitial and alveolar pulmonary edema, bibasilar infiltrate could have similar appearance. DISCHARGE PLAN: The patient will be restarted on all his home medications. He was asked to follow up closely with his primary care physician for reduction of polypharmacy. He will continue to monitor his blood pressures at home and contact his PCP if his blood pressures are out of the normal range. He will also continue to follow up with his outpatient guest service manager and GI specialist. No changes were made to his home medications. He should eat a healthy diet, low in processed foods and low in sugar and resume activity as tolerated. He was educated on return precautions which include, but are not limited to recurrence of blood in the stool, dizziness, lightheadedness, or shortness of breath. DISPOSITION: To home. CONDITION: Improved. TIME SPENT: Approximately 60 minutes was spent on discharge of this patient, more than half of which was spent with care coordination at bedside for interview and exam. [id number]/[facility] #: [id number] JULIANA
[2019-07-15] MEDS ORDERED: Isosorbide Dinitrate TAB* 10 MG PO SCH (09:00)
== END 2019-07-14 16:00 | disposition home or self-care (01) | DRG 378 ==
LOC: ED 13:15 → MEDTELE 16:47
PROVIDERS: ADMIT Internal Medicine; ATTEND Internal Medicine
DX: K57.31 Diverticulosis of large intestine without perforation or abscess with bleeding (principal); I50.22 Chronic systolic (congestive) heart failure; E87.2 Acidosis; I13.0 Hypertensive heart and chronic kidney disease with heart failure and stage 1 through stage 4 chronic kidney disease, or unspecified chronic kidney disease; E87.1 Hypo-osmolality and hyponatremia; Z68.41 Body mass index [BMI] 40.0-44.9, adult; I24.8 Other forms of acute ischemic heart disease; K52.9 Noninfective gastroenteritis and colitis, unspecified; K92.1 Melena; I25.10 Atherosclerotic heart disease of native coronary artery without angina pectoris; J45.909 Unspecified asthma, uncomplicated; K63.5 Polyp of colon; D64.9 Anemia, unspecified; R79.89 Other specified abnormal findings of blood chemistry; E78.5 Hyperlipidemia, unspecified; G47.33 Obstructive sleep apnea (adult) (pediatric); N40.0 Benign prostatic hyperplasia without lower urinary tract symptoms; K21.9 Gastro-esophageal reflux disease without esophagitis; I65.21 Occlusion and stenosis of right carotid artery; E78.00 Pure hypercholesterolemia, unspecified; M19.90 Unspecified osteoarthritis, unspecified site; E11.36 Type 2 diabetes mellitus with diabetic cataract; E66.01 Morbid (severe) obesity due to excess calories; I48.91 Unspecified atrial fibrillation; N18.9 Chronic kidney disease, unspecified; E11.22 Type 2 diabetes mellitus with diabetic chronic kidney disease; Z95.5 Presence of coronary angioplasty implant and graft; Z88.0 Allergy status to penicillin; Z88.1 Allergy status to other antibiotic agents; Z88.8 Allergy status to other drugs, medicaments and biological substances; I25.2 Old myocardial infarction; Z87.440 Personal history of urinary (tract) infections; Z88.7 Allergy status to serum and vaccine; Z28.21 Immunization not carried out because of patient refusal; Z95.1 Presence of aortocoronary bypass graft; Z85.46 Personal history of malignant neoplasm of prostate; Z92.3 Personal history of irradiation; Z87.891 Personal history of nicotine dependence; Z79.82 Long term (current) use of aspirin; Z79.01 Long term (current) use of anticoagulants; Z79.4 Long term (current) use of insulin; Z79.899 Other long term (current) drug therapy; Z79.02 Long term (current) use of antithrombotics/antiplatelets; E86.0 Dehydration; I95.9 Hypotension, unspecified
CPT/HCPCS: 36415; 71045; 80048; 80053; 81003; 81015; 82272; 82553; 83605; 83630; 83735; 83880; 84443; 84484; 85025; 85027; 85610; 85730; 86140; 86850; 86900; 86901; 87045; 87046; 87077; 87086; 87641; 93005; 94640; 94660; 96365; 99284; A9270-GY; J3475

== ENCOUNTER 2019-08-15 14:16 | Observation (INO) | payer MEDICARE, OTHER ==
--- NOTE | 2019-08-15 14:41 | ED ---
HPI Chest Pain - HPI Summary HPI Summary: This patient is a 73 year old male presenting to [facility] with a chief complaint of chest pain and SOB upon exertion starting yesterday. He had an ablation 2 days ago for AFIB in [place]. He says the pain is better when he is sitting up and worse when he is lying down last night. He states the pain laying down has resolved since last night. He has a Hx of diabetes, prostate cancer, CAD, HTN, HLD, CHF and PR. Patient states he was exposed to agent orange in [place]. Medications reviewed, allergies noted. - History of Current Complaint Chief Complaint: EDShortnessOfBreath Time Seen by Provider: 08/15/19 14:28 Hx Obtained From: Patient Onset/Duration: Started Days Ago Pain Intensity: 0 Pain Scale Used: 0-10 Numeric - Additional Pertinent History Primary Care Physician: KIET - Allergy/Home Medications Allergies/Adverse Reactions: Allergies Allergy/AdvReac Type Severity Reaction Status Date / Time COY Inhibitors Allergy Coughing Verified 08/15/19 14:24 atorvastatin Allergy Muscle Ache Verified 08/15/19 14:24 cephalexin [From Keflex] Allergy Swelling Verified 08/15/19 14:24 losartan [From Cozaar] Allergy Unknown Verified 08/15/19 14:24 Reaction Details Penicillins Allergy Swelling Verified 08/15/19 14:24 ramipril [From Altace] Allergy Unknown Verified 08/15/19 14:24 Reaction Details Tetanus Vaccines and Toxoid Allergy Unknown Verified 08/15/19 14:24 Reaction Details Home Medications: Home Medications hydrALAZINE TAB* [Apresoline TAB*] 50 mg PO TID 08/15/19 [History Confirmed 03/27] PMH/Surg Hx/FS Hx/Imm Hx Endocrine/Hematology History: Reports: Hx Diabetes Cardiovascular History: Reports: Hx Angina, Hx Angioplasty, Hx Congestive Heart Failure, Hx Coronary Artery Disease, Hx Hypercholesterolemia, Hx Hypertension, Hx Myocardial Infarction, Other Cardiovascular Problems/Disorders - hyperlipidemia, multiple angioplasties, 4 stents, carotid endartectomy Denies: Hx Pacemaker/ICD Respiratory History: Reports: Hx Asthma, Hx Sleep Apnea - CPAP - will bring, Other Respiratory Problems/Disorders - SOB on exertion Denies: Hx Chronic Obstructive Pulmonary Disease (COPD) - PT STATES NO GI History: Reports: Hx Gastroesophageal Reflux Disease History: Reports: Hx Benign Prostatic Hyperplasia, Other Problems/ Disorders - hx prostate CA, BPH - sees dr kidd every 6 months Denies: Hx Dialysis, Hx Renal Disease Musculoskeletal History: Reports: Hx Arthritis Denies: Hx Rheumatoid Arthritis, Hx Osteoporosis, Hx Scoliosis Sensory History: Reports: Hx Cataracts - no surgery yet, Hx Contacts or Glasses - glasses Denies: Hx Glaucoma, Hx Hearing Aid, Other Sensory Impairments Opthamlomology History: Reports: Hx Cataracts - no surgery yet, Hx Contacts or Glasses - glasses Denies: Hx Glaucoma, Other Sensory Impairments Neurological History: Denies: Hx Headaches, Hx Seizures, Hx Transient Ischemic Attacks (TIA), Other Neuro Impairments/Disorders Psychiatric History: Denies: Hx Anxiety, Hx Depression - Cancer History Cancer Type, Location and Year: Prostate Hx Radiation Therapy: Yes - Surgical History Surgery Procedure, Year, and Place: Tonsillectomy 1952. Quadruple bypass 1990 [facility],. single bypass 2004[facility]. Nasal polyps removal 1991 and 1992 [facility]. Multiple angiograms, alf and [facility]. 2 stents 2003 - alf. External beam radiation for prostate CA 1999 [facility] Scar tissue removal from urethra 2001 [facility]. 2 [place] [facility] [place] Carotid endartectomy 2010 [facility] Hx Anesthesia Reactions: No - Immunization History Date of Tetanus Vaccine: Up to date Date of Influenza Vaccine: May 2016 Infectious Disease History: No Infectious Disease History: Denies: Traveled Outside the [place] in Last 30 Days - Family History Known Family History: Positive: Hypertension - father Negative: Cardiac Disease, Diabetes - Social History Alcohol Use: None Hx Substance Use: No Substance Use Type: Reports: None Hx Tobacco Use: Yes Smoking Status (MU): Former Smoker Type: Cigarettes Amount Used/How Often: 1ppd for 13 yrs Review of Systems Positive: Chest Pain Positive: Shortness Of Breath All Other Systems Reviewed And Are Negative: Yes Physical Exam - Summary Physical Exam Summary: Constitutional: Well-developed, Well-nourished, Alert. (-) Distressed Skin: Warm, Dry HENT: Normocephalic; Atraumatic Eyes: Conjunctiva normal Neck: Musculoskeletal ROM normal neck. (-) JVD, (-) Stridor, (-) Tracheal deviation Cardio: Rhythm regular, rate normal, Heart sounds normal; Intact distal pulses; Radial pulses are 2+ and symmetric. (-) Murmur Pulmonary/Chest wall: Effort normal. (-) Respiratory distress, (-) Wheezes, (-) Rales Abd: Soft, (-) tenderness, (-) Distension, (-) Guarding, (-) Rebound Musculoskeletal: (-) Edema Lymph: (-) Cervical adenopathy Neuro: Alert, Oriented x3 Psych: Mood and affect Normal Triage Information Reviewed: Yes Vital Signs On Initial Exam: Initial Vitals Temp Pulse Resp BP Pulse Ox 97.6 F 63 18 95/73 96 08/15/19 14:18 08/15/19 14:18 08/15/19 14:18 08/15/19 14:18 08/15/19 14:18 Vital Signs Reviewed: Yes Procedures - Sedation Patient Received Moderate/Deep Sedation with Procedure: No Diagnostics - Vital Signs Vital Signs Temp Pulse Resp BP Pulse Ox 08/15/19 14:18 97.6 F 63 18 95/73 96 - Laboratory Result Diagrams: 08/15/19 14:57 08/15/19 14:57 Lab Statement: Any lab studies that have been ordered have been reviewed, and results considered in the medical decision making process. - EKG 1450 Cardiac Rate: NL - 61 BPM EKG Rhythm: Sinus Rhythm Summary of EKG Findings: ST-elevation in aVR. ST depression and T-wave inversion in II, ,aVF, I, V4-V6. Unchanged from 07/13/19. ED Physician has reviewed and interpeted this report. Chest Pain Course/Dx - Course Assessment/Plan: Patient is here OF the chest pain that resolved yesterday. Patient also has shortness of breath. Patient had an ablation on Tuesday in [place]. Patient had a bedside ultrasound which showed no obvious pericardial effusion. Patient has evidence of fluid overload on chest x-ray and physical exam. Patient has an elevated troponin which is likely due to patient's recent procedure however ACS cannot be ruled out. Patient does have an EKG which has diffuse ST depression with T wave inversion which an EKG a month ago. Cardiology was called and he recommended admission for diuresis, echocardiogram, and serial troponin - Diagnoses Provider Diagnoses: Fluid overload, Elevated troponin, SOB (shortness of breath) - Provider Notifications Discussed Care Of Patient With: Reanna gM - Cardiology Time Discussed With Above Provider: 15:44 Instructed by Provider To: Admit As Observation - For Diuresis, Elevated Troponin, ECHO Discharge ED - Sign-Out/Discharge Documenting (check all that apply): Patient Departure - Admission, accepted by Dr. Talbert - Discharge Plan Condition: Stable Disposition: ADMITTED TO [facility] Referrals: Pedro Gillespie DO [Primary Care Provider] - - Billing Disposition and Condition Condition: STABLE Disposition: Admitted to [facility] - Attestation Statements Document Initiated by Dorieibe: Yes Documenting Scribe: Hima Valerio Provider For Whom Valencia is Documenting (Include Credential): Carson Colvin MD Scribe Attestation: Hima Velez, scribed for Carson Colvin MD on 08/15/19 at 1601. Scribe Documentation Reviewed: Yes Provider Attestation: The documentation as recorded by the Hima gibbs accurately reflects the service I personally performed and the decisions made by Carson cruz MD Status of Scribe Document: Viewed
[2019-08-15 15:07] LABS: ABS Basophils 0.1 10^3/ul (0-0.2); ABS Eosinophils 0.1 10^3/ul (0-0.6); ABS Monocytes 0.7 10^3/ul (0-0.8); ABS Neutrophils 6.9 10^3/ul (1.5-7.7); Eosinophil % 1.4 %; Hematocrit 34 % (42-52); Hemoglobin 11.6 g/dL (14.0-18.0); Lymphocyte % 11.4 %; Mean Corpuscular HGB Conc 34 g/dL (31-36); Mean Corpuscular Hemoglobin 31 pg (27-31); Mean Corpuscular Volume 91 fL (80-94); Mean Platelet Volume 7.9 fL (7.4-10.4); Platelet Count 200 10^3/uL (150-450); Red Blood Count 3.79 10^6 /uL (4.18-5.48); Red Cell Distribution Width 18 % (10-15); White Blood Count 8.9 10^3/uL (3.5-10.8)
[2019-08-15 15:25] LABS: ALT 31 U/L (7-52); AST 87 U/L (13-39); Albumin 3.7 g/dL (3.2-5.2); Alkaline Phosphatase 73 U/L (34-104); Anion Gap 7 mmol/L (2-11); BUN/Creatinine Ratio 32.5 (8-20); Blood Urea Nitrogen 54 mg/dL (6-24); CO2 Carbon Dioxide 24 mmol/L (22-32); Calcium 9.1 mg/dL (8.6-10.3); Chloride 104 mmol/L (101-111); EGFR African American 49.4 (>60); EGFR Non-African American 40.8 (>60); Globulin 3.8 g/dL (2-4); Glucose 265 mg/dL (70-100); Potassium 4.4 mmol/L (3.5-5.0); Sodium 135 mmol/L (135-145); Total Protein 7.5 g/dL (6.4-8.9)
[2019-08-15 15:30] LABS: Troponin I 14.41 ng/mL (<0.03)
--- OUTSIDE RECORDS SUMMARY | 2019-08-15 15:51 | XMS REPORT | Continuity of Care Document ---
:1945 External Reference #:[id number] Author Name Pedro Gillespie D.O. Address [address] [place] [address] Care Team Providers Name Role Phone Farhad Mesa MD - Cardiovascular Care Team Information [employer] [facility] - Cardiovascular Care Team Information [employer] [facility] - Otolaryngology Care Team Information [employer] [phone] Phani Darnell MD - Pulmonary Care Team Information [employer] [phone] Disease Lobo Pabon MD - Urology Care Team Information [employer] [phone] Valentina Munoz MD - Care Team Information [employer] [phone] Dermatology Problems Active Problems Provider Date Injury due to chemical exposure Hill Nye M.D. 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 Onset: 05/16/2003 Benign essential hypertension Hill Nye M.D. Onset: 05/16/2003 Hyperplasia of prostate Hill Nye M.D. Onset: 05/16/2003 Angina pectoris Hill Nye M.D. Onset: 05/16/2003 Morbid obesity Hill Nye M.D. Onset: 08/19/2003 Calculus of bile duct with cholecystitis Hill Nye M.D. Onset: History of malignant neoplasm of prostate Hill Nye M.D. Onset: Degenerative joint disease of pelvis Hill Nye M.D. Onset: 2003 Gastroesophageal reflux disease Hill Nye M.D. Onset: 07/23/2004 Type 2 diabetes mellitus with multiple Hill Nye M.D. Onset: 2004 complications Chronic ischemic heart disease Hill Nye M.D. Onset: 11/09/2004 Benign neoplasm of colon Hill Nye M.D. Onset: 01/07/2005 Allergic rhinitis due to pollen Hill Nye M.D. Onset: 01/31/2006 Gallstone Hill Nye M.D. Onset: 02/04/2009 Chronic ischemic heart disease Hill Nye M.D. Onset: 08/27/2013 Allergic asthma without status asthmaticus Pedro Gillespie D.O. Onset: 2013 Type 2 diabetes mellitus Hill Nye M.D. Onset: 07/24/2015 Uncomplicated moderate persistent [...] Patient has never smoked Smoking Status Reviewed: 07/30/19 Patient has never smoked Allergies, Adverse Reactions, Alerts Active Allergies Reaction Severity Comments Date Penicillin facial swelling 08/19/2003 Tetanus vaccine 08/19/2003 Keflex 09/24/2013 Marcus Inhibitors severe cough 09/29/2016 Medications Active Medications SIG Qnty Indications Ordering Date Provider Levaquin 1 by mouth daily x 7 7tabs Verna 07/24/2019 500mg days Breann Vasquez Tablets Furosemide take one tablet by Unknown 07/08/2019 80mg mouth every morning Tablets Hydralazine 50MG 3 times per day Unknown 07/08/2019 Eliquis 5mg, take 1 twice Unknown 07/08/2019 daily Isosorbide one po daily Unknown 05/16/2019 Jardiance 10mg, take one po Unknown 05/16/2019 daily Insulin use twice daily with 180[facility], [facility] Syringe/Needle insulin Pedro D.O. 1ML/31G X 5/16" 31G X 5/16" 1 ML [facility] Accu-Chek Softclix 1-4 times daily as 200units E11.65 [facility], 10/12/2018 Lancets directed Breann Vasquez [facility] Novolog Mix 70/30 14u in in the 15ml [facility], 07/10/2018 Prefilled Flexpen morning Job Vasquez.ODamien (70-30)100Unit/ML Supn Metoprolol Tartrate take 1 tablet by [facility], 06/12/2018 mouth twice a day Pedro D.O. 50mg Tablets for high blood pressure Potassium Chloride 1 tablet po daily 30tabs Unknown 06/06/2018 ER 10Meq Tablets ER Lantus inject 45 units Unknown 06/01/2018 100Unit/ML subcu twice daily Solution BD Pen or appropriate 120units [facility], 04/13/2018 Needle/Mini/Ultrafin needles for novolog Pedro DDamienODamien e/31G X 3/16" pen. use up to 31G X 5 4/day, as directed, mm [facility] for insulin administration Vitamin D3 Maximum 1 by mouth every day 90caps [facility], 06/16/2017 Strength or 7 tablets once a Pedro, D.O. 5000Unit week Capsules Magox 400 2 tablets every 180tabs [facility], 06/16/2017 night at bedtime as Pedro, D.O. 400(241.3mg) mg directed Tablets Vitamin B Complex-C 1 by mouth twice a 180caps [facility], 06/16/2017 day Pedro, D.O. Capsules Blood Pressure Cuff use as directed 1units I10 Felix, 06/01/2017 Carol Razo [facility] Nitrostat place 1 tablet under 100tabs I10 [facility], 09/22/2016 0.4mg tongue every 5 Pedro, D.O. Tablets Sub minutes as needed for heart pain up to 3 tablets Spironolactone take 1/2 tablet by Unknown 05/20/2016 25mg mouth once daily Tablets Fluticasone 1 sprays into each 48gm Verna, 07/23/2015 Propionate nostril every day Breann Vasquez 50mcg/Act for nasal Suspension congestion. brigid allergies. rinse mouth post Asmanex 1 inhilation twice a 1units Hill Saravia 01/13/2015 220mcg/Inh day rinse mouth Carol Nye Aerosol after use. Proair HFA 2 puffs every 4 8.500gm J45.20 Hill Saravia 02/04/2014 hours as needed for Carol [...] 10mg Tablets once daily Unknown History Medications Azithromycin take 1 tablet by 6tabs A04.5 Pedro Gillespie, 07/16/2019 - 500mg mouth daily for 6 D.O. 07/22/2019 Tablets days for infection Oseltamivir 1 by mouth twice 10caps J11.89 Pedro Gillespie, 07/09/2019 - Phosphate daily for 5 days. D.O. 07/14/2019 75mg Capsules Iron (Ferrous 1 by mouth twice D64.9 Unknown 02/26/2019 - Gluconate) a day. 03/12/2019 256(28Fe) mg Tablets Medications Administered in Office Medication SIG [...] Vaccine Lot # U-Flu Given 05/23/2019 Influenza,Unspecified 18712 Given 04/10/2018 Influenza Virus Vaccine, Quadrivalent, Split, Im Use 18224 Given 05/11/2017 Influenza Vaccine Split Virus Preservative Free Im Use (hi-dose) 17304 Given 05/11/2016 Influenza Virus Vaccine, Quadrivalent, Split, Im Use 28692 Given 12/08/2015 Zostavax U-Flu Given 06/23/2015 Influenza,Unspecified 60396 Given 04/02/2015 Influenza Vaccine Split Virus Preservative Free Im Use (hi-dose) 06710 Given 11/28/2014 Prevnar 13 [id number] 80090 Given 03/08/2014 Flu, Split Virus 3Yrs 49173 Given 08/06/2013 Flu, Split Virus 3Yrs 53756 Given 04/19/2012 Flu, Split Virus 3Yrs 89631 Given 04/22/2011 Flu, Split Virus 3Yrs 00240 Given 10/16/2010 Pneumococcal Immunization [id number] 36900 Given 05/08/2010 Flu, Split Virus 3Yrs [id number] 13087 Given 02/06/2010 Adacel or Boostrix, TDaP [id number] 98232 Given 04/29/2009 Flu, Split Virus 3Yrs [id number] 26252 Given 05/13/2008 Flu, Split Virus 3Yrs [id number] 82914 Given 07/13/2007 Flu, Split Virus 3Yrs [id number] 50564 Given 06/28/2006 Flu, Split Virus 3Yrs [id number] 67526 Given 01/31/2006 Td Immunization 30537 Given 05/18/2005 Flu, Split Virus 3Yrs 22271 Given 05/14/2004 Flu, Split Virus 3Yrs 77006 Given 05/09/2003 Flu, Split Virus 3Yrs 52609 Given 07/14/2001 Pneumococcal Immunization Vital Signs Date Vital Result Comment 07/30/2019 10:38am BP Systolic 104 mmHg BP Diastolic 74 mmHg 07/24/2019 11:26am BP Systolic 110 mmHg BP Diastolic 72 mmHg Heart Rate 61 /min O2 % BldC Oximetry 93 % Body Temperature 98.3 F Results Test Acquired Facility Test Result H/L Range Note Date Laboratory test 07/30/2019 In House Hemoglobin 7.2 finding A1c Urine Culture And 07/13/2019 [facility] Urine Culture SEE 1 Sensitivities [phone] RESULT BELOW Laboratory test 07/13/2019 [facility] Troponin-I 0.24 Critical <0.03 2 finding [phone] (TnI) ng/mL high CKMB 07/13/2019 [facility] CKMB ng/mL 3.9 ng/mL Normal 0.6-6.3 [phone] Laboratory test 07/13/2019 [facility] Magnesium 1.6 mg/dL Low 1.9- 2.7 finding [phone] C Reactive Protein 84.56 mg/L High <8.01 Comp Metabolic Panel 07/13/2019 [facility] Sodium 133 mmol/L Low 135- 145 [phone] Potassium 3.5 mmol/L Normal 3.5-5.0 Chloride 100 mmol/L Low 101-111 Co2 Carbon Dioxide 24 mmol/L Normal 22-32 Anion Gap 9 mmol/L Normal 2-11 Glucose 121 mg/dL High 70-100 Blood Urea Nitrogen 24 mg/dL Normal 6-24 Creatinine 1.83 mg/dL High 0.67-1.17 BUN/Creatinine Ratio 13.1 Normal 8-20 Calcium 9.4 mg/dL Normal 8.6-10.3 Total Protein 7.9 g/dL Normal 6.4-8.9 Albumin 3.5 g/dL Normal 3.2-5.2 Globulin 4.4 g/dL High 2-4 Albumin/Globulin Ratio 0.8 Low 1-3 Total Bilirubin 0.70 mg/dL Normal 0.2-1.0 Alkaline Phosphatase 75 U/L Normal 34-104 Alt 16 U/L Normal 7-52 Ast 22 U/L Normal 13-39 Egfr Non- 36.5 >60 Egfr 44.1 >60 3 Laboratory test 07/13/2019 [facility] Partial 38.6 seconds High 26.0- 38.0 finding [phone] Thrombo Time PTT B-Type Natriuretic Peptide BNP 301 pg/mL High <=100 Inr/Protime 07/13/2019 [facility] Inr 2.46 High 0.82-1.09 4 [phone] Laboratory test 07/13/2019 [facility] Lactic 2.8 mmol/L Critical 0.5- 2.0 5 finding [phone] Acid high Urinalysis 07/13/2019 [facility] Urine Yellow Profile [phone] Color Urine Appearance Cloudy Urine Specific [place] 1.006 Low 1.010-1.030 Urine pH 5.0 Normal 5-9 Urine Urobilinogen Negative Negative Urine Ketones Negative Negative Urine Protein Negative Negative Urine Leukocytes Negative Negative Urine Blood 1+ Abnormal Negative Urine Nitrite Negative Negative Urine Bilirubin Negative Negative Urine Glucose 3+(>=500 mg/dL) Abnormal Negative Urine White Blood Cell Trace(0-5/hpf) Absent Urine Red Blood Cell 1+(3-5/hpf) Abnormal Absent Urine Bacteria Absent Absent Urine Squamous Epithelial Cell Present Abnormal Absent Urine Hyaline Casts Present Abnormal Absent CBC Auto Diff 07/13/2019 [facility] White Blood 4.1 10^3/uL Normal 3.5-10.8 [phone] Count Red Blood Count 3.97 10^6/uL Low 4.18-5.48 Hemoglobin 11.8 g/dL Low 14.0-18.0 Hematocrit 35 % Low 42-52 Mean Corpuscular Volume 89 fL Normal 80-94 Mean Corpuscular Hemoglobin 30 pg Normal 27-31 Mean Corpuscular HGB Conc 33 g/dL Normal 31-36 Red Cell Distribution Width 17 % High 10-15 Platelet Count 183 10^3/uL Normal 150-450 Mean Platelet Volume 8.1 fL Normal 7.4-10.4 Abs Neutrophils 2.6 10^3/uL Normal 1.5-7.7 Abs Lymphocytes 0.5 10^3/uL Low 1.0-4.8 Abs Monocytes 0.7 10^3/uL Normal 0-0.8 Abs Eosinophils 0.2 10^3/uL Normal 0-0.6 Abs Basophils 0.0 10^3/uL Normal 0-0.2 Abs Nucleated RBC 0.0 10^3/uL Granulocyte % 63.1 % Lymphocyte % 13.2 % Monocyte % 18.1 % Eosinophil % 4.4 % Basophil % 1.2 % Nucleated Red Blood Cells % 0.3 Laboratory test 07/13/2019 [facility] TSH (Thyroid 3.35 mcIU/mL Normal 0.34-5.60 6 finding [phone] Stim Horm) Type & Screen 07/13/2019 [facility] Patient Blood O Negative [phone] Type Antibody Screen NEGATIVE Stool Occult 07/13/2019 [facility] Stool Occult SEE RESULT 7 Blood Diag [phone] Blood, Diag BELOW Laboratory test 07/13/2019 [facility] Troponin-I 0.26 ng/mL Critical high <0.03 8 finding [phone] (TnI) Lactic Acid 1.2 mmol/L Normal 0.5-2.0 9 Basic Metabolic Panel 07/13/2019 [facility] Sodium 135 mmol/L Normal 135-145 [phone] Potassium 3.5 mmol/L Normal 3.5-5.0 Chloride 103 mmol/L Normal 101-111 Co2 Carbon Dioxide 24 mmol/L Normal 22-32 Anion Gap 8 mmol/L Normal 2-11 Glucose 77 mg/dL Normal 70-100 Blood Urea Nitrogen 24 mg/dL Normal 6-24 Creatinine 1.67 mg/dL High 0.67-1.17 BUN/Creatinine Ratio 14.4 Normal 8-20 Calcium 9.0 mg/dL Normal 8.6-10.3 Egfr Non- 40.5 >60 Egfr 49.0 >60 10 CBC No Diff 07/13/2019 [facility] White Blood Count 4.0 10^3/uL Normal 3.5-10.8 [phone] Red Blood Count 3.72 10^6/uL Low 4.18-5.48 Hemoglobin 11.2 g/dL Low 14.0-18.0 Hematocrit 33 % Low 42-52 Mean Corpuscular Volume 89 fL Normal 80-94 Mean Corpuscular Hemoglobin 30 pg Normal 27-31 Mean Corpuscular HGB Conc 34 g/dL Normal 31-36 Red Cell Distribution Width 17 % High 10-15 Platelet Count 187 10^3/uL Normal 150-450 Mean Platelet Volume 8.0 fL Normal 7.4-10.4 Influenza A & B 07/09/2019 [facility] Influenza A NEGATIVE Negative 11, 12 Request [phone] Molecular Influenza B Molecular NEGATIVE Negative Flu AB Disclaimer (SEE NOTE) 13 CBC No Diff 06/19/2019 [facility] White Blood Count 5.8 10^3/uL Normal 3.5-10.8 [phone] Red Blood Count 4.02 10^6/uL Low 4.18-5.48 Hemoglobin 12.1 g/dL Low 14.0-18.0 Hematocrit 36 % Low 42-52 Mean Corpuscular Volume 90 fL Normal 80-94 Mean Corpuscular Hemoglobin 30 pg Normal 27-31 Mean Corpuscular HGB Conc 34 g/dL Normal 31-36 Red Cell Distribution Width 17 % High 10-15 Platelet Count 196 10^3/uL Normal 150-450 Mean Platelet Volume 7.8 fL Normal 7.4-10.4 Inr/Protime 06/19/2019 [facility] Inr 1.87 High 0.82-1.09 14 [phone] Basic Metabolic Panel 06/19/2019 [facility] Sodium 137 mmol/L Normal 135-145 [phone] Potassium 4.3 mmol/L Normal 3.5-5.0 Chloride 104 mmol/L Normal 101-111 Co2 Carbon Dioxide 26 mmol/L Normal 22-32 Anion Gap 7 mmol/L Normal 2-11 Glucose 152 mg/dL High 70-100 Blood Urea Nitrogen 30 mg/dL High 6-24 Creatinine 1.50 mg/dL High 0.67-1.17 BUN/Creatinine Ratio 20.0 Normal 8-20 Calcium 9.7 mg/dL Normal 8.6-10.3 Egfr Non- 45.9 >60 Egfr 55.5 >60 15 CBC Auto Diff 04/12/2019 [facility] White Blood 6.3 10^3/uL Normal 3.5-10.8 [phone] Count Red Blood Count 3.92 10^6/uL Low [...] Cells % 0.1 Laboratory test finding 04/12/2019 [facility] Ferritin 29.0 ng/mL Normal 24-336 [phone] Iron & Iron Binding 04/12/2019 [facility] Iron 50 g/dL Normal 50- 212 Capacity [phone] Unsaturated Iron Binding < 359 g/dL Total Iron Binding Capacity 374 g/dL Normal 250-450 Transferrin 267 mg/dL Normal 203-362 % Iron Saturation 13 % Low 15-55 Laboratory test 04/12/2019 In House Hemoglobin A1c 7.0 finding CBC Auto Diff 03/20/2019 [facility] White Blood Count 7.6 Normal 3.5- 10. [phone] 10^3/uL 8 Red Blood Count 4.11 10^6/uL [...] Blood Cells % 0.1 Retic Count 03/20/2019 [facility] Retic Count 1.7 % High 0.5-1.5 [phone] Corrected Retic Count 1.4 % Normal 0.5-1.5 Maturation Factor Retic 1.5 Retic Index 0.90 Mean Retic Volume 110.7 Immature Retic Fraction 0.44 RBC Retic Count 4.11 10^6/uL Low 4.18-5.48 Hematocrit for Retic CNT 38 % Low 42-52 CBC Auto Diff 03/13/2019 [facility] White Blood 7.1 10^3/uL Normal 3.5-10.8 [phone] Count Red Blood Count 3.81 10^6/uL Low [...] Blood Cells % 0.0 Comp Metabolic Panel 03/13/2019 [facility] Sodium 140 mmol/L Normal 135-145 [phone] Potassium 4.1 mmol/L Normal 3.5-5.0 Chloride 104 [...] Egfr Non- 54.1 >60 Egfr 65.5 >60 16 Laboratory test finding 03/13/2019 [facility] Ferritin 33.0 ng/mL Normal 24-336 [phone] Iron & Iron Binding 03/13/2019 [facility] Iron 53 g/dL Normal 50- 212 Capacity [phone] Unsaturated Iron Binding < 349 g/dL Total Iron Binding Capacity 364 g/dL Normal 250-450 Transferrin 260 mg/dL Normal 203-362 % Iron Saturation 15 % Normal 15-55 Retic Count 03/13/2019 [facility] Retic Count 2.0 % High 0.5-1.5 [phone] Corrected Retic Count 1.6 % High 0.5-1.5 Maturation Factor Retic 1.5 Retic Index 1.10 Mean Retic Volume 123.2 Immature Retic Fraction 0.42 RBC Retic Count 3.81 10^6/uL Low 4.18-5.48 Hematocrit for Retic CNT 35 % Low 42-52 1 SEE RESULT BELOW Name: HILL CLAY : [address]: Simona Oviedo MD Acct: [id number] Unit: [id number] AGE: 73 Location: [place] [address] Re07/13/19 SEX: M Status: ADM IN SPEC: [id number] AISHA: 07/13/19-[address] [facility] [address]: Shree Paula MD REQ: [id number] RECD: 07/13/19140 STATUS: MARISOL GUERRERO DR: Pedro Gillespie DO _ SOURCE: URINE SPDESC: ORDERED: Urine Culture Procedure Result Reported Site Urine Culture Final 07/14/19- 1417 ML No Growth (<1,000 CFU/mL) * ML - Main Lab . END OF REPORT DEPARTMENT OF PATHOLOGY, [address] [place] [address] Andrzej Pulido M.D. Director [facility] # [id number] 2 Result TnIDx:0.24 Called to [id number] at: 14:37:17 by:[id number] Read back by: [email or web address] Troponin-I testing on Plasma Separator Tubes (PST) has a known false positive rate of 0.20-0.40%. All positive troponins reflex immediately to secondary confirmatory testing. Using the [employer] DxI 800 Access Immunoassay systems, the 99th percentile upper reference limit was demonstrated to be < 0.03 ng/mL. 3 Because ethnic data is not always readily [...] 15-29 5 Kidney failure <15 (or dialysis) 4 Standard intensity warfarin therapeutic range: 2.0-3.0 High intensity warfarin therapeutic range: 2.5-3.5 5 Critical Result LACT:2.8 Called to [id number] at: 14:31:02 by:[id number] Read back by:[id number] [facility] Severe Sepsis and Septic Shock Management Bundle Measure requires all lactic acids initially measuring >2.0 mmol/L be repeated. 6 WEAKNESS, AND FLU SYMPTOMS PER PT 7 SEE RESULT BELOW Name: HILL CLAY : [address]: Shree Paula MD Acct: [id number] Unit: [id number] AGE: 73 Location: ED Re07/13/19 SEX: M Status: REG ER SPEC: [id number] AISHA: 07/13/[address] [facility] [address]: Shree Paula MD REQ: [id number] RECD: 07/13/19 STATUS: MARISOL GUERRERO DR: Pedro Gillespie DO _ SOURCE: STOOL SPDESC: ORDERED: Occult Bl, Diag Procedure Result Reported Site Stool Occult Blood (1) Final 07/13/19- 1513 ML Stool Occult Blood Positive Collection Date (1) 07/13/19 * ML - Main Lab . END OF REPORT DEPARTMENT OF PATHOLOGY, [address] [place] [address] Andrzej Pulido M.D. Director [facility] # [id number] 8 Result TnIDx:0.26 Called to [id number] at: 17:29:28 by:[id number] Read back by: [id number] Troponin-I testing on Plasma Separator Tubes (PST) has a known false positive rate of 0.20-0.40%. All positive troponins reflex immediately to secondary confirmatory testing. Using the [employer] 800 Access Immunoassay systems, the 99th percentile upper reference limit was demonstrated to be < 0.03 ng/mL. 9 [facility] Severe Sepsis and Septic Shock Management Bundle Measure requires all lactic acids initially measuring >2.0 mmol/L be repeated. 10 Because ethnic data is not always [...] 15-29 5 Kidney failure <15 (or dialysis) 11 [id number] 12 Lye Peel Operator: [id number] 13 Suboptimal collection technique may reduce sensitivity of test. Refer to the [facility] Test Catalog for collection information: [email or web address] As with all diagnostic procedures, the laboratory results obtained should be used in conjunction with other clinical information available to the physician, including confirmation by another method, as applicable. 14 Standard intensity warfarin therapeutic range: 2.0-3.0 High intensity warfarin therapeutic range: 2.5-3.5 15 Because ethnic data is not always readily [...] 15-29 5 Kidney failure <15 (or dialysis) 16 Because ethnic data is not always readily [...] dialysis) Procedures Date Code Description Status 03/07/2019 [id number] Diabetic Foot Exam Completed 09/08/2015 [id number] Colonoscopy Completed Medical Devices Description No Information Available Encounters Type Date Location Provider Dx Diagnosis Office Visit 07/24/2019 Main Office Sopchak, Pedro, J20.9 Acute bronchitis , 11:15a D.O. 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 enteritis J20.9 Acute bronchitis, unspecified Office Visit 07/09/2019 10:45a Main Office Pedro Gillespie, J11.89 Influenza due to D.O. unidentified influenza virus w oth manifest I10 Essential (primary) hypertension J45.40 Moderate persistent asthma, uncomplicated K21.9 Gastro-esophageal reflux disease without esophagitis E11.69 Type 2 diabetes mellitus with other specified complication Z79.4 retirement (current) use of insulin Office Visit 04/12/2019 [...] anemia, unspecified R19.7 Diarrhea, unspecified K92.1 Melena Assessments Date Code Description Provider 07/30/2019 E11.69 Type 2 diabetes mellitus with other specified Pedro Gillespie D.O. complication 07/24/2019 J20.9 Acute bronchitis, unspecified Pedro Gillespie D.O. 07/24/2019 I10 Essential (primary) hypertension Pedro Gillespie D.O. 07/24/2019 J45.40 Moderate persistent asthma, uncomplicated Sopchak, Pedro, D.O. 07/24/2019 K21.9 Gastro-esophageal reflux disease without Sopchak, Pedro, D.O. esophagitis 07/24/2019 E11.69 Type 2 diabetes mellitus with other specified Sopchak, Pedro, D.O. 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 07/24/2019 E11.65 Type 2 diabetes mellitus with hyperglycemia Sopchak, Pedro , D.O. 07/24/2019 R05 Cough Soptyronek, Pedro, D.O. 07/16/2019 A04.5 Campylobacter enteritis SopEtta navarroon, D.O. 07/16/2019 J20.9 Acute bronchitis, unspecified Soptyronek Pedro, D.O. 07/09/2019 J11.89 Influenza due to unidentified influenza virus Etta Gillespieon, D.O. with other manifestations 07/09/2019 I10 Essential (primary) hypertension Soptyronek, Pedro, D.O. 07/09/2019 J45.40 Moderate persistent asthma, uncomplicated Sopchak, Pedro, D.O. 07/09/2019 K21.9 Gastro-esophageal reflux disease without Sopchak, Pedro, D.O. esophagitis 07/09/2019 E11.69 Type 2 diabetes mellitus with other specified Sopchak, Pedro, D.O. complication 07/09/2019 Z79.4 retirement (current) use of insulin VeekEttaon, D.O. 04/12/2019 E11.65 Type 2 diabetes mellitus with hyperglycemia Soptyronek Pedro , D.O. 04/12/2019 D50.9 Iron deficiency anemia, unspecified Sopchak, Pedro, D.O. 04/12/2019 K92.1 Melena Verna Pedro, D.O. 04/12/2019 I10 Essential (primary) hypertension Soptyronek Pedro, D.O. 04/12/2019 J45.40 Moderate persistent asthma, uncomplicated Sopchak, Pedro, D.O. 04/12/2019 K21.9 Gastro-esophageal reflux disease without Sopchak Pedro, D.O. esophagitis 03/20/2019 D50.9 Iron deficiency anemia, unspecified Pedro Gillespie D.O. 03/20/2019 K92.1 Pedro Gregorio D.O. 03/20/2019 I10 Essential (primary) hypertension Pedro Gillespie D.O. 03/20/2019 E11.65 Type 2 diabetes mellitus with hyperglycemia Pedro Gillespie D.O. 03/12/2019 I10 Essential (primary) hypertension Pedro Gillespie D.O. 03/12/2019 E11.65 Type 2 diabetes mellitus with hyperglycemia Pedro Gillespie D.O. 03/12/2019 D50.9 Iron deficiency anemia, unspecified Pedro Gillespie D.O. 03/12/2019 R19.7 Diarrhea, unspecified Pedro Gillespie D.ODamien 03/12/2019 K92.1 Pedro Gregorio D.O. Plan of Treatment No Information Available Goals 07/30/2019 - Pedro Gillespie D.O.E11.69 Type 2 diabetes mellitus with other specified complication Today's A1c: 7.2 Hemoglobin A1C (average glucose) &lt ; 7.0 - this is checked every 3 months. Avoid/limit carbohydrates: foods like Potatoes, Wheat (bread,pasta,cookies,crackers,pretzels,dough), Rice, [place], and Sugar Limit sweetened beverages. Check eyes yearly with a dialated exam with an visual education teacher Check cholesterol levels regularly Check for diabetic kidney disease yearly with urine microalbumin test Check your feet by looking at all sides daily; once a year at least have them checked by a doctor. Functional Status Description No Information Available Mental Status Description No Information Available Referrals Refer to Dr Reason for Referral Status Appt Date [facility] Dark blood in stools since starting Closed 2018 eliquis. Also recently increased on iron supplement. Has chronic anemia. Also atrial fibrillation. Was planned for colonoscopy which was cancelled after recent [facility] and a.fib. Consult and Treat [facility] [place] [address] [phone]
--- OUTSIDE RECORDS SUMMARY | 2019-08-15 15:51 | XMS REPORT | Continuity of Care Document ---
:1945 External Reference #:[id number] Author Name LESLYE Fontanez Address [address] [place] [address] Care Team Providers Name Role Phone Pedro Gillespie MD Care Team Information [employer] [phone] Problems Active Problems Provider Date Cough Alondra Bergeron M.D. Onset: 02/07/2018 Uncomplicated moderate persistent asthma Alondra Bergeron M.D. Onset: 02/07 Uncomplicated moderate persistent asthma Alondra Bergeron M.D. Onset: 09/09 Allergic asthma without status asthmaticus LESLYE Mckeon Onset: Allergic rhinitis LESLYE Mckeon Onset: 06/07/2013 Allergic rhinitis due to pollen LESLYE Mckeon Onset: 06/07/2013 Social History Type Date Description Comments Sex Unknown ETOH Use Denies alcohol use Tobacco Use Start: Unknown End: Unknown Patient is a former smoker Recreational Drug Use Denies Drug Use Allergies, Adverse Reactions, Alerts Active Allergies Reaction Severity Comments Date Penicillin angioedema Tetanus positive test 05/10/2013 Keflex patient was told to avoid due to PCN 06/04/2014 allergy Marcus Inhibitors coughing 09/21/2016 Medications Active Medications SIG Qnty Indications Ordering Date Provider Montelukast Sodium 1 tablet by mouth 90tabs [facility]10[facility] Isosorbide Mononitrate 1 every day Unknown ER 30mg Tablets ER 24HR Eliquis twice a day Unknown 5mg Tablets Jardiance 1 every day Unknown 10mg Tablets Novolog Mix 70/30 daily 14 units Unknown (70-30)100Unit/ML Suspension Sodium Chloride Unknown 3% Nebulizer Albuterol Sulfate inhale contents of Unknown 1 vial in (2.5mg/3ML) 0.083% nebulizer Every 6 Nebulizer To 12 Hours Metoprolol Tartrate take 1 tablet by Unknown 100mg mouth twice a day Tablets Spironolactone daily. Unknown 25mg Tablets Potassium Chloride ER Unknown 10Meq Tablets ER Furosemide take 1 tablet by Unknown 80mg Tablets mouth once daily Fluticasone Propionate 1 squirt each 16gm Tereza nostril daily KAMALA El-[place]illa 50mcg/Act Suspension Asmanex Twisthaler 120 2 puffs once daily 3units Tereza Metered Doses UlCECY souzaP-C 220mcg/Inh Aerosol Proventil HFA 2 puffs every 4-6 1units Tereza 108(90Base) hours as needed KAMALA [place] mcg/Act Aerosol Simvastatin 1 po qd Unknown 80mg Tablets [facility] HCL [facility] Pantoprazole Sodium [facility] 40mg Table[address] Terazosin HCL [facility] 5mg Capsules Nitrostat Unknown 0.4mg Tablets Sub Clopidogrel Sillanie, 75mg Tablets Carol Razo [facility] 100Unit/ML Solution Immunizations CPT Code Status Date Vaccine Lot # [id number] Given 05/29/2014 Influenza Vaccine 49984 Given 05/08/2014 Influenza Vaccine 88071 Given 04/08/2012 Pneumococcal Vaccine 15917 Given 08/09/2011 Pneumococcal Vaccine 33769 Given Unknown Pneumococcal Vaccine 70629 Given Unknown Influenza Vaccine 05402 Given Unknown Influenza Vaccine 98963 Given Unknown Influenza Vaccine 26370 Given Unknown Influenza Vaccine Vital Signs Date Vital Result Comment 07/24/2019 1:50pm Height 69 inches 5'9" Weight 293.00 lb Patient stated. Weight 132.905 kg Respiratory Rate 16 /min Heart Rate 69 /min O2 % BldC Oximetry 92 % BP Systolic 127 mmHg BP Diastolic 63 mmHg Asthma Control Test 18 Fractional Exhaled Nitric Oxide 28 BMI (Body Mass Index) 43.3 kg/m2 04/03/2019 1:47pm Height 69 inches 5'9" Weight 297.00 lb Weight 134.719 kg Respiratory Rate 20 /min Heart Rate 76 /min O2 % BldC Oximetry 96 % BP Systolic 158 mmHg BP Diastolic 70 mmHg Asthma Control Test 22 Fractional Exhaled Nitric Oxide 18 BMI (Body Mass Index) 43.9 kg/m2 Results Description No Information Available Procedures Date Code Description Status 07/24/2019 01987 Nitric Oxide Gas Determination Completed 07/24/2019 66698 Ippb Completed 04/03/2019 86758 Nitric Oxide Gas Determination Completed 04/03/2019 90407 Pre PFT Completed Medical Devices Description No Information Available Encounters Type Date Location Provider Dx Diagnosis Office Visit 07/24/2019 [facility] Tereza Uldrich, J45.40 Moderate persistent 1:40p [employer] asthma, uncomplicated J30.1 Allergic rhinitis due to pollen J30.89 Other allergic rhinitis Office Visit 04/03/2019 1:40p [facility] Tereza J45.40 Moderate persistent Uldrich, [employer] asthma, uncomplicated J30.1 Allergic rhinitis due to pollen J30.89 Other allergic rhinitis R05 Cough Assessments Date Code Description Provider 07/24/2019 J45.40 Moderate persistent asthma, uncomplicated Tereza Uldrich , [employer] 07/24/2019 J30.1 Allergic rhinitis due to pollen Tereza Uldrich, [employer] 07/24/2019 J30.89 Other allergic rhinitis Tereza Uldrich, [employer] 04/03/2019 J45.40 Moderate persistent asthma, uncomplicated Alondra Bergeron M.D. 04/03/2019 J45.40 Moderate persistent asthma, uncomplicated Tereza Uldrich , [employer] 04/03/2019 J30.1 Allergic rhinitis due to pollen Alondra Bergeron M.D. 04/03/2019 J30.1 Allergic rhinitis due to pollen Tereza Uldrich, [employer] 04/03/2019 J30.89 Other allergic rhinitis Alondra Bergeron M.D. 04/03/2019 J30.89 Other allergic rhinitis LESLYE Fontanez 04/03/2019 R05 Cough Alondra Coy Bergeron M.D. 04/03/2019 R05 Cough LESLYE Fontanez Plan of Treatment Future Appointment(s):01/29/2020 1:40 pm - [facility] at [facility]07/24/2019 - ELENA FontanezCJ45.40 Moderate persistent asthma, dveqlszliadfxN63.1 Allergic rhinitis due to ziwmlpD37.89 Other allergic rhinitisFollow up:6 months with ENORecommendations:Continue all medications as prescribed.Refrain from wearing perfumes/scented colognes while visitingour office. IPPB now Your HILLARY was 28 which is above 25 so you have some inflammation in your lungs Continue the montelukast 1 daily Continue the Asmanex 2 puffs twice a day Continue the fluticasone 2 sprays daily Continue the Proventil 2 puffs every 4 hours as needed for cough, shortness of breathor wheezing. Continue the nebulizer twice a day while sick Functional Status Description No Information Available Mental Status Description No Information Available Referrals Description No Information Available
--- OUTSIDE RECORDS SUMMARY | 2019-08-15 15:51 | XMS REPORT | Continuity of Care Document ---
:1945 External Reference #:[id number] Author Name Pedro Gillespie D.O. Address [address] [place] [address] Care Team Providers Name Role Phone Farhad Mesa MD - Cardiovascular Care Team Information Tier [employer] Driver Disease [facility] - Cardiovascular Care Team Information [facility] [employer] [facility] - Otolaryngology Care Team Information Tier Truck Driver [phone] Phani Darnell MD - Pulmonary Care Team Information Tier Truck Driver [phone] Disease Lobo Pabon MD - Urology Care Team Information Tier Truck Driver [phone] Valentina Munoz MD - Care Team Information Tier Truck Driver [phone] Dermatology Problems Active Problems Provider Date Injury due to chemical exposure Hill Nye M.D. 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 Tablets days for infection Furosemide take one tablet by Unknown 07/08/2019 80mg mouth every morning Tablets Hydralazine 50MG 3 times per day Unknown 07/08/2019 Eliquis Unknown 07/08/2019 Isosorbide one po daily Unknown 05/16/2019 Jardiance one po daily Unknown 05/16/2019 Insulin use twice daily with 180[facility]11.65 [facility], [facility] Syringe/Needle insulin Pedro D.O. 1ML/31G X 5/16" 31G X 5/16" 1 ML [facility] Accu-Chek Softclix 1-4 times daily as 200units E11.65 [facility], 10/12/2018 Lancets directed [facility] 70/30 14u in in the 15ml [facility], 07/10/2018 Prefilled Flexpen morning Pedro D.O. (70-30)100Unit/ML Supn Metoprolol Tartrate take 1 tablet [facility], 06/12/2018 mouth twice a day Pedro D.O. 50mg Tablets for high blood pressure Potassium Chloride 1 tablet po daily 30tabs Unknown 06/06/2018 ER 10Meq Tablets ER Lantus inject 45 units Unknown 06/01/2018 100Unit/ML subcu twice daily Solution BD Pen or appropriate 120units [facility], 04/13/2018 Needle/Mini/Ultrafin needles for novolog Pedro DDamienO. e/31G X 3/16" pen. use up to 31G X 5 4/day, as directed, vinh [facility] Vitamin D3 Maximum 1 by mouth every day 90caps [facility], 06/16/2017 Strength or 7 tablets once a Pedro, D.O. 5000Unit week Capsules Magox 400 2 tablets every 180tabs [facility], 06/16/2017 night at bedtime as Pedro, D.O. 400(241.3mg) mg directed Tablets Vitamin B Complex-C 1 by mouth twice a 180caps [place], 06/16/2017 day Pedro, D.O. Capsules Blood Pressure Cuff use as directed 1units I10 Silcoff, 06/01/2017 Carol Razo [facility] Nitrostat place 1 tablet under 100tabs I10 [facility], 09/22/2016 0.4mg tongue every 5 Pedro, D.O. Tablets Sub minutes as needed for heart pain up to 3 tablets Spironolactone take 1/2 tablet by Unknown 05/20/2016 25mg mouth once daily Tablets Nitroglycerin apply one patch 90units Silcosalomon, 03/23/2016 daily Carol Razo 0.2mg/HR Patches 24HR Fluticasone 1 sprays into each 48gm Verna, [...] I10 Verna, 12/13/2013 5mg the evening Breann Vasuqez Capsules N40.1 Simvastatin 1 every night for 90tabs I25.9 Pedro Gillespie, 09/24/2013 80mg cholesterol D.O. Tablets Zyrtec Allergy 1 by mouth every day 477.0 Alondra Bergeron, 04/11/2012 10mg for allergies MD Tablets Ecotrin Low Strength 1tab po daily [...] 10mg Tablets once daily Unknown History Medications Oseltamivir Phosphate 1 by mouth 10caps J11.89 Pedro Gillespie, 07/09/2019 - twice daily D.O. 07/14/2019 75mg Capsules for 5 days. Iron (Ferrous 1 by mouth D64.9 Unknown 02/26/2019 - Gluconate) twice a day. 03/12/2019 256(28Fe) mg Tablets Medications [...] Vaccine Lot # U-Flu Given 05/23/2019 Influenza,Unspecified [id number] Given 04/10/2018 Influenza Virus Vaccine, Quadrivalent, Split, Im Use 94520 Given 05/11/2017 Influenza Vaccine Split Virus Preservative Free Im Use (hi-dose) 20826 Given 05/11/2016 Influenza Virus Vaccine, Quadrivalent, Split, Im Use 83732 Given 12/08/2015 Zostavax U-Flu Given 06/23/2015 Influenza,Unspecified 27818 Given 04/02/2015 Influenza Vaccine Split Virus Preservative Free Im Use (hi-dose) 71978 Given 11/28/2014 Prevnar 13 [id number] 59899 Given 03/08/2014 Flu, Split Virus 3Yrs 90733 Given 08/06/2013 Flu, Split Virus 3Yrs 02370 Given 04/19/2012 Flu, Split Virus 3Yrs 61167 Given 04/22/2011 Flu, Split Virus 3Yrs 25232 Given 10/16/2010 Pneumococcal Immunization [id number] 18163 Given 05/08/2010 Flu, Split Virus 3Yrs [id number] 89618 Given 02/06/2010 Adacel or Boostrix, TDaP [id number] 88060 Given 04/29/2009 Flu, Split Virus 3Yrs [id number] 23043 Given 05/13/2008 Flu, Split Virus 3Yrs [id number] 84690 Given 07/13/2007 Flu, Split Virus 3Yrs [id number] 98932 Given 06/28/2006 Flu, Split Virus 3Yrs [id number] 37561 Given 01/31/2006 Td Immunization 84627 Given 05/18/2005 Flu, Split Virus 3Yrs 99784 Given 05/14/2004 Flu, Split Virus 3Yrs 46972 Given 05/09/2003 Flu, Split Virus 3Yrs 52413 Given 07/14/2001 Pneumococcal Immunization Vital Signs Date Vital Result Comment 07/16/2019 4:12pm BP Systolic 112 mmHg BP Diastolic 70 mmHg Body Temperature 98.3 F Weight 294.00 lb w/shoes 07/09/2019 10:51am BP Systolic 104 mmHg BP Diastolic 66 mmHg Heart Rate 80 /min O2 % BldC Oximetry 92 % Body Temperature 98.2 F Results Test Acquired Facility Test Result H/L Range Note Date Urine Culture And 07/13/2019 [facility] Urine SEE 1 Sensitivities [phone] Culture RESULT BELOW Laboratory test 07/13/2019 [facility] Troponin-I 0.24 Critical <0.03 2 finding [phone] (TnI) ng/mL high CKMB 07/13/2019 [facility] CKMB ng/mL 3.9 ng/mL Normal 0.6-6.3 [phone] Laboratory test 07/13/2019 [facility] Magnesium 1.6 mg/dL Low 1.9- 2.7 finding [phone] C Reactive Protein 84.56 mg/L High <8.01 Comp Metabolic Panel 07/13/2019 [facility] Sodium 133 mmol/L Low 135- 145 [phone] Potassium 3.5 mmol/L Normal 3.5-5.0 Chloride 100 [...] Egfr 44.1 >60 3 Laboratory test 07/13/2019 [facility] Partial 38.6 seconds High 26.0- 38.0 finding [phone] Thrombo Time PTT B-Type Natriuretic Peptide BNP 301 pg/mL High <=100 Inr/Protime 07/13/2019 [facility] Inr 2.46 High 0.82-1.09 4 [phone] Laboratory test 07/13/2019 [facility] Lactic 2.8 mmol/L Critical 0.5- 2.0 5 finding [phone] Acid high Urinalysis 07/13/2019 [facility] Urine Yellow Profile [phone] Color Urine Appearance Cloudy Urine Specific [place] 1.006 Low 1.010-1.030 Urine pH 5.0 Normal [...] Present Abnormal Absent CBC Auto Diff 07/13/2019 [facility] White Blood 4.1 10^3/uL Normal 3.5-10.8 [phone] Count Red Blood Count 3.97 10^6/uL Low [...] Blood Cells % 0.3 Laboratory test 07/13/2019 [facility] TSH (Thyroid 3.35 mcIU/mL Normal 0.34-5.60 6 finding [phone] Stim Horm) Type & Screen 07/13/2019 [facility] Patient Blood O Negative [phone] Type Antibody Screen NEGATIVE Stool Occult 07/13/2019 [facility] Stool Occult SEE RESULT 7 Blood Diag [phone] Blood, Diag BELOW Laboratory test 07/13/2019 [facility] Troponin-I 0.26 ng/mL Critical high <0.03 8 finding [phone] (TnI) Lactic Acid 1.2 mmol/L Normal 0.5-2.0 9 Basic Metabolic Panel 07/13/2019 [facility] Sodium 135 mmol/L Normal 135-145 [phone] Potassium 3.5 mmol/L Normal 3.5-5.0 Chloride 103 mmol/L Normal 101-111 Co2 Carbon Dioxide 24 mmol/L Normal 22-32 Anion Gap 8 mmol/L Normal 2-11 Glucose 77 mg/dL Normal 70-100 Blood Urea Nitrogen 24 mg/dL Normal 6-24 Creatinine 1.67 mg/dL High 0.67-1.17 BUN/Creatinine Ratio 14.4 Normal 8-20 Calcium 9.0 mg/dL Normal 8.6-10.3 Egfr Non- 40.5 >60 Egfr 49.0 >60 10 CBC No Diff 07/13/2019 [facility] White Blood Count 4.0 10^3/uL Normal 3.5-10.8 [phone] Red Blood Count 3.72 10^6/uL Low 4.18-5.48 [...] Normal 7.4-10.4 Influenza A & B 07/09/2019 [facility] Influenza A NEGATIVE Negative 11, 12 Request [phone] Molecular Influenza B Molecular NEGATIVE Negative Flu AB Disclaimer (SEE NOTE) 13 Basic Metabolic Panel 06/19/2019 [facility] Sodium 137 mmol/L Normal 135-145 [phone] Potassium 4.3 mmol/L Normal 3.5-5.0 Chloride 104 mmol/L Normal 101-111 Co2 Carbon Dioxide 26 mmol/L Normal 22-32 Anion Gap 7 mmol/L Normal 2-11 Glucose 152 mg/dL High 70-100 Blood Urea Nitrogen 30 mg/dL High 6-24 Creatinine 1.50 mg/dL High 0.67-1.17 BUN/Creatinine Ratio 20.0 Normal 8-20 Calcium 9.7 mg/dL Normal 8.6-10.3 Egfr Non- 45.9 >60 Egfr 55.5 >60 14 Inr/Protime 06/19/2019 [facility] Inr 1.87 High 0.82-1.09 15 [phone] CBC No Diff 06/19/2019 [facility] White Blood 5.8 10^3/uL Normal 3.5- 10.8 [phone] Count Red Blood Count 4.02 10^6/uL Low 4.18-5.48 Hemoglobin 12.1 g/dL Low 14.0-18.0 Hematocrit 36 % Low 42-52 Mean Corpuscular Volume 90 fL Normal 80-94 Mean Corpuscular Hemoglobin 30 pg Normal 27-31 Mean Corpuscular HGB Conc 34 g/dL Normal 31-36 Red Cell Distribution Width 17 % High 10-15 Platelet Count 196 10^3/uL Normal 150-450 Mean Platelet Volume 7.8 fL Normal 7.4-10.4 Laboratory test 04/12/2019 In House Hemoglobin A1c 7.0 finding Iron & Iron 04/12/2019 [facility] Iron 50 g/dL Normal 50-212 Binding Capacity [phone] Unsaturated Iron Binding < 359 g/dL Total Iron Binding Capacity 374 g/dL Normal 250-450 Transferrin 267 mg/dL Normal 203-362 % Iron Saturation 13 % Low 15-55 Laboratory test 04/12/2019 [facility] Ferritin 29.0 ng/mL Normal 24- 336 finding [phone] CBC Auto Diff 04/12/2019 [facility] White Blood 6.3 10^3/uL Normal 3.5-10.8 [phone] Count Red Blood Count 3.92 10^6/uL Low [...] % Nucleated Red Blood Cells % 0.1 CBC Auto Diff 03/20/2019 [facility] White Blood 7.6 10^3/uL Normal 3.5-10.8 [phone] Count Red Blood Count 4.11 10^6/uL Low 4.18-5.48 [...] Blood Cells % 0.1 Retic Count 03/20/2019 [facility] Retic Count 1.7 % High 0.5-1.5 [phone] Corrected Retic Count 1.4 % Normal 0.5-1.5 Maturation Factor Retic 1.5 Retic Index 0.90 Mean Retic Volume 110.7 Immature Retic Fraction 0.44 RBC Retic Count 4.11 10^6/uL Low 4.18-5.48 Hematocrit for Retic CNT 38 % Low 42-52 CBC Auto Diff 03/13/2019 [facility] White Blood 7.1 10^3/uL Normal 3.5-10.8 [phone] Count Red Blood Count 3.81 10^6/uL Low [...] Cells % 0.0 Comp Metabolic Panel 03/13/2019 [facility] Sodium 140 mmol/L Normal 135-145 [phone] Potassium 4.1 mmol/L Normal 3.5-5.0 Chloride 104 [...] 65.5 >60 16 Laboratory test finding 03/13/2019 [facility] Ferritin 33.0 ng/mL Normal 24-336 [phone] Iron & Iron Binding 03/13/2019 [facility] Iron 53 g/dL Normal 50- 212 Capacity [phone] Unsaturated Iron Binding < 349 g/dL Total Iron Binding Capacity 364 g/dL Normal 250-450 Transferrin 260 mg/dL Normal 203-362 % Iron Saturation 15 % Normal 15-55 Retic Count 03/13/2019 [facility] Retic Count 2.0 % High 0.5-1.5 [phone] Corrected Retic Count 1.6 % High 0.5-1.5 Maturation Factor Retic 1.5 Retic Index 1.10 Mean Retic Volume 123.2 Immature Retic Fraction 0.42 RBC Retic Count 3.81 10^6/uL Low 4.18-5.48 Hematocrit for Retic CNT 35 % Low 42-52 CBC No Diff 01/17/2019 [facility] White Blood 5.8 10^3/uL Normal 3.5- 10.8 17 [phone] Count Red Blood Count 3.74 10^6/uL Low 4.18-5.48 [...] fL Normal 7.4-10.4 Comp Metabolic Panel 01/17/2019 [facility] Sodium 140 mmol/L Normal 135-145 [phone] Potassium 4.6 mmol/L Normal 3.5-5.0 Chloride 108 [...] Egfr Non- 57.1 >60 Egfr 69.1 >60 18 Laboratory test 01/17/2019 [facility] C Reactive 1.51 mg/L Normal < 8.01 19 finding [phone] Protein 1 SEE RESULT BELOW Name: HILL CLAY : [address]: Simona Oviedo MD Acct: [id number] Unit: [id number] AGE: 73 Location: [address] Re07/13/19 SEX: M Status: ADM IN SPEC: [id number] AISHA: 07/13/[address] [facility] [address]: Shree Paula MD REQ: [id number] RECD: 07/13/19 STATUS: MARISOL GUERRERO DR: Pedro Gillespie DO _ SOURCE: URINE SPDESC: ORDERED: Urine Culture Procedure Result Reported Site Urine Culture Final 07/14/19- 1417 ML No Growth (<1,000 CFU/mL) * ML - Main Lab . END OF REPORT DEPARTMENT OF PATHOLOGY, [address] [place] [address] Andrzej Pulido M.D. Director [facility] # [id number] 2 Result TnIDx:0.24 Called to [id number] at: 14:37:17 by:[id number] Read back by: [id number] Troponin-I testing on Plasma Separator Tubes (PST) has a known false positive rate of 0.20-0.40%. All positive troponins reflex immediately to secondary confirmatory testing. Using the PWAI 800 Access Immunoassay systems, the 99th percentile [...] 2.5-3.5 5 Critical Result LACT:2.8 Called to [id number] at: 14:31:02 by:[id number] Read back by:[id number] [facility] Severe Sepsis and Septic Shock Management Bundle Measure requires all lactic acids initially measuring >2.0 mmol/L be repeated. 6 WEAKNESS, AND FLU SYMPTOMS PER PT 7 SEE RESULT BELOW Name: HILL CLAY : [address]: Shree Paula MD Acct: [id number] Unit: [id number] AGE: 73 Location: ED Re07/13/19 SEX: M Status: REG ER SPEC: [id number] AISHA: 07/13/[address]: Shree Paula MD REQ: [id number] RECD: 07/13/19 STATUS: MARISOL GUERRERO DR: Pedro Gillespie DO _ SOURCE: STOOL SPDESC: ORDERED: Occult Bl, Diag Procedure Result Reported Site Stool Occult Blood (1) Final 07/13/19- 1513 ML Stool Occult Blood Positive Collection Date (1) 07/13/19 * ML - Main Lab . END OF REPORT DEPARTMENT OF PATHOLOGY, [address] [place] [address] Andrzej Pulido M.D. Director [facility] # [id number] 8 Result TnIDx:0.26 Called to [id number] at: 17:29:28 by:[id number] Read back by: [id number] Troponin-I testing on Plasma Separator Tubes (PST) has a known false positive rate of 0.20-0.40%. All positive troponins reflex immediately to secondary confirmatory testing. Using the Yobble 800 Access Immunoassay systems, the 99th percentile upper reference limit was demonstrated to be < 0.03 ng/mL. 9 [facility] Severe Sepsis and Septic Shock Management Bundle [...] 5 Kidney failure <15 (or dialysis) 11 [id number] 12 Credit Department Manager: [id number] 13 Suboptimal collection technique may reduce sensitivity of test. Refer to the [facility] Test Catalog for collection information: [email or web address] As with all diagnostic procedures, the laboratory results obtained should be used in conjunction with other clinical information available to the physician, including confirmation by another method, as applicable. 14 Because ethnic data is not always readily [...] 15-29 5 Kidney failure <15 (or dialysis) 15 Standard intensity warfarin therapeutic range: 2.0-3.0 High intensity warfarin therapeutic range: 2.5-3.5 16 Because ethnic data is not always [...] 15-29 5 Kidney failure <15 (or dialysis) 17 [id number] 18 Because ethnic data is not always readily [...] 15-29 5 Kidney failure <15 (or dialysis) 19 [id number] Procedures Date Code Description Status 03/07/2019 [id number] Diabetic Foot Exam Completed 09/08/2015 [id number] Colonoscopy Completed Medical Devices Description No Information Available Encounters Type Date Location Provider Dx Diagnosis Office Visit 07/16/2019 Main Office Pedro Gillespie, A04.5 Campylobacter 3:45p D.O. enteritis J20.9 Acute bronchitis, unspecified Office Visit 07/09/2019 10:45a Main Office Pedro Gillespie J11.89 Influenza due to D.O. unidentified influenza virus w oth manifest I10 Essential (primary) hypertension J45.40 Moderate persistent asthma, uncomplicated K21.9 Gastro-esophageal reflux disease without esophagitis E11.69 Type 2 diabetes mellitus with other specified complication Z79.4 skilled nursing (current) use of insulin Office Visit 04/12/2019 [...] K92.1 Melena Assessments Date Code Description Provider 07/16/2019 A04.5 Campylobacter enteritis Pedro Gillespie D.ODamien 07/16/2019 J20.9 Acute bronchitis, unspecified Pedro Gillespie D.O. 07/09/2019 J11.89 Influenza due to unidentified influenza virus Pedro Gillespie, D.O. with other manifestations 07/09/2019 I10 Essential (primary) hypertension Etta Gillespieon, D.O. 07/09/2019 J45.40 Moderate persistent asthma, uncomplicated Soptyronek Pedro, D.O. 07/09/2019 K21.9 Gastro-esophageal reflux disease without Sopramon Pedro, D.O. esophagitis 07/09/2019 E11.69 Type 2 diabetes mellitus with other specified Sopramon Pedro, D.O. complication 07/09/2019 Z79.4 skilled nursing (current) use of insulin Pedro Gillespie, D.O. 04/12/2019 E11.65 Type 2 diabetes mellitus with hyperglycemia Etta Gillespieon , D.O. 04/12/2019 D50.9 Iron deficiency anemia, unspecified Soptyronek, Pedro, D.O. 04/12/2019 K92.1 MelEtta Dillonon, D.O. 04/12/2019 I10 Essential (primary) hypertension Etta Gillespieon, D.O. 04/12/2019 J45.40 Moderate persistent asthma, uncomplicated Sopchak, Pedro, D.O. 04/12/2019 K21.9 Gastro-esophageal reflux disease without Etta Gillespieon, D.O. esophagitis 03/20/2019 D50.9 Iron deficiency anemia, unspecified Soptyronek, Pedro, D.O. 03/20/2019 K92.1 MelEtta Dillonon, D.O. 03/20/2019 I10 Essential (primary) hypertension Etta Gillespieon, D.O. 03/20/2019 E11.65 Type 2 diabetes mellitus with hyperglycemia SopEtta navarroon , D.O. 03/12/2019 I10 Essential (primary) hypertension Etta Gillespieon, D.O. 03/12/2019 E11.65 Type 2 diabetes mellitus with hyperglycemia Etta Gillespieon , D.O. 03/12/2019 D50.9 Iron deficiency anemia, unspecified Soptyronek Pedro, D.O. 03/12/2019 R19.7 Diarrhea, unspecified SoptyronekEttaon, D.O. 03/12/2019 K92.1 Jenniferbrielle Pedro Gillespie D.O. Plan of Treatment Future Appointment(s):07/30/2019 10:00 am - Pedro Gillespie D.O. at Main Byjtdq3107/16/2019 - Pedro Gillespie D.O.A04.5 Campylobacter enteritisNew Medication:Azithromycin 500 mg - take 1 tablet by mouth daily for 6 days for infectionComments:with continued symptoms of malaise will treat for otherwise self limited condition. Reviewed options with Hill driver.J20.9 Acute bronchitis, unspecifiedFollow up:as scheduled Functional Status Description No Information Available Mental Status Description No Information Available Referrals Refer to Reason for Referral Status Appt Date [facility] Dark blood in stools since starting Closed 2018 eliquis. Also recently increased on iron supplement. Has chronic anemia. Also atrial fibrillation. Was planned for colonoscopy which was cancelled after recent [place] and a.fib. Consult and Treat [facility] [place] [address] [phone]
[2019-08-15 16:55] LABS: Erythrocyte Sed Rate 45 mm/Hr (0-19)
[2019-08-15] MEDS ORDERED: Acetaminophen TAB* 325 MG PO PRN (17:31)
[2019-08-15] MEDS ORDERED: Fluticasone NASAL SPRAY 50MCG* 16 gm SPRAY BTL BOTH NARES PRN (17:35)
[2019-08-15] MEDS ORDERED: Albuterol 2.5 MG/3 ML NEB.SOL* (0.083%) INH PRN (17:35)
[2019-08-15] MEDS ORDERED: Furosemide IV* 10 MG/ML VIAL (40 MG) IV ONE (18:03)
[2019-08-15] MEDS: Metoprolol Tartrate TAB* 50 mg PO SCH (19:26)
[2019-08-15] MEDS ORDERED: CMCS: Simvastatin TAB(NF) 20 MG TAB PO SCH (21:00)
[2019-08-15 21:34] LABS: Troponin I 14.64 ng/mL (<0.03)
[2019-08-15] MEDS ORDERED: Dextrose 50% VIAL 50 ml IV PUSH PRN (21:44)
[2019-08-15] MEDS: hydrALAZINE TAB* 25 MG PO SCH (22:22)
[2019-08-15] MEDS: Insulin GLARGINE(*) 1 UNITS UNIT SUBCUT SCH (22:22)
[2019-08-15] MEDS: Apixaban* 5 MG TAB PO SCH (22:22)
[2019-08-15] MEDS: Colchicine* 0.6 MG TAB PO SCH (22:24)
--- NOTE | 2019-08-16 00:08 | HP ---
CC: Dr. Gillespie; Dr. Mesa * HISTORY AND PHYSICAL: DATE OF ADMISSION: PROVIDER: Letitia Puga NP PRIMARY CARE PROVIDER: Dr. Gillespie. ATTENDING PHYSICIAN WHILE IN THE HOSPITAL: Dr. Mary Talbert *(dictated by Letitia Puga NP). HISTORY OF PRESENT ILLNESS: Mr. Soto is a 73-year-old male with a past medical history significant for atrial fibrillation; history of an MS; coronary artery disease; hypertension; hyperlipidemia; diabetes; history of prostate cancer; coronary artery disease; obstructive sleep apnea, on BiPAP; allergic rhinitis; asthma; heart failure with reduced EF, who presented to the emergency room with the complaints of progressively worsening shortness of breath and chest pain yesterday. The patient reports that he was in [place] on Tuesday and had a cardiac ablation for atrial fibrillation. He reports that this procedure was done late in the evening on Tuesday and did not sleep well Tuesday night. The patient reports that he was discharged home on Tuesday. He reports that he felt tired, he rested throughout the day. He does report that that evening he developed some chest pain, felt like a dull pressure in his chest. He does report that it was resolved with sitting up. The patient reports that he awoke this morning, he had no further episodes of chest pain. He does report today that he developed exertional shortness of breath and feeling of being weak and exhausted. Due to these findings, he called his doctor, the doctor that performed his ablation at [place], who recommended to come to the emergency room for further evaluation. While in the emergency room, the patient had routine lab work drawn. He was found to have an elevated troponin initially of 14.41 and he had a chest x-ray that is concerning for pulmonary edema. Elevated ESR of 45. Due to these findings, Hospital Medicine was asked to see and evaluate the patient for admission. PAST MEDICAL HISTORY: Significant for: 1. Atrial fibrillation, on anticoagulation with Eliquis. 2. History of MS, status post bypass and multiple stent placements. 3. Hypertension. 4. Hyperlipidemia. 5. Diabetes. 6. History of prostate cancer. 7. Coronary artery disease. 8. Obstructive sleep apnea, on BiPAP. 9. Allergic rhinitis. 10. Asthma. 11. Heart failure with reduced EF, PAST SURGICAL HISTORY: 1. Ablation on 08/13/19. 2. Cardiac catheterization, last in 2013. At that time, he had 2 stents placed , quadruple bypass in 1990, cardiac stent placed in 2002, single bypass in 2004. 3. Nasal polyps removed. MEDICATIONS: Home medications include: 1. Isosorbide mononitrate 30 mg p.o. daily. 2. Spironolactone 25 mg p.o. daily. 3. Jardiance 10 mg p.o. daily. 4. Apixaban 5 mg p.o. b.i.d. 5. Cetirizine 10 mg p.o. daily. 6. Hytrin 5 mg p.o. daily. 7. Sodium chloride inhalant q.12 hours. 8. Simvastatin 80 mg at bedtime. 9. Pantoprazole 40 mg p.o. q.a.m. 10. Nitroglycerin 0.4 mg sublingual q.5 minutes as needed. 11. Clopidogrel 75 mg p.o. daily. 12. Singulair 10 mg p.o. daily. 13. Metoprolol 50 mg p.o. b.i.d. 14. Hydralazine 50 mg t.i.d. 15. Potassium chloride 10 mEq p.o. daily. 16. Lantus 45 units subcu b.i.d. 17. Lasix 80 mg p.o. daily. 18. Fluticasone 1 spray in both nares q.a.m. 19. Asmanex 2 puffs inhaled daily. 20. Aspirin 81 mg p.o. daily. 21. Albuterol nebulizer 2.5 mg every 6 to 12 hours as needed for shortness of breath. ALLERGIES: 1. COY INHIBITOR. 2. ATORVASTATIN. 3. KEFLEX. 4. LOSARTAN. 5. PENICILLIN. 6. RAMIPRIL. 7. TETANUS FAMILY HISTORY: Father with heart disease and hypertension. Brother with heart disease. SOCIAL HISTORY: The patient lives with his . He quit smoking in 1972. Denies any alcohol or illicit drug use. Healthcare proxy is his , Jyotsna Arechiga, her phone number is [phone] or [phone]. He is a full code. REVIEW OF SYSTEMS: The patient denies any fever, chills, or unintended weight loss. He does report a chest pain yesterday that he describes as a pressure, relieved with sitting, worse with lying down. Denies any cough or hemoptysis. He does report progressively worsening shortness of breath. Denies any nausea, vomiting, diarrhea, abdominal pain, gross hematuria, dysuria. Denies any focal weakness, sensory loss. Denies any visual complaints, dysphagia, arthralgias, myalgias, rash, lesions, open sores, psychosis and anxiety. PHYSICAL EXAMINATION GENERAL: At this time, Mr. Soto is alert and oriented, resting on a stretcher in the emergency room. He is in no acute distress. VITAL SIGNS: Blood pressure is 96/57, heart rate is 59, respirations are 19, O2 saturation is 96%, temperature is 97.6. HEENT: Head is atraumatic and normocephalic. Eyes: EOMs are intact. Sclerae are anicteric and not pale. Oral mucosa is moist. NECK: Supple. LUNGS: Diminished throughout bilaterally. ABDOMEN: Soft and nontender. Bowel sounds are present x4. EXTREMITIES: He is able to move all 4 extremities. There is no clubbing or cyanosis. NEUROLOGIC: He is awake, alert, and oriented x3. Speech is clear and thought process is intact. There are no gross focal deficits. DIAGNOSTIC STUDIES/LAB DATA: WBCs are 8.9, RBCs 3.79, hemoglobin 11.6, hematocrit is 34, platelet count 200, ESR is 45. Sodium 135, potassium 4.4, chloride 104, carbon dioxide was 24, anion gap 7, BUN 54, creatinine 1.66, glucose is 265, calcium 9.1. ASTs were 87, ALTs were 31, alkaline phosphatase was 73. Troponin 14.41. BNP 1271. He had a chest x-ray, radiologist's impression: Perihilar pattern of interstitial opacification consistent with pulmonary interstitial edema, COPD, and cardiomegaly. He had an electrocardiogram which showed T-wave inversions and depressions in lead I, II, aVF, V3, V4, V5, and V6; ST elevation in aVR consistent with prior EKG. ASSESSMENT AND PLAN: Mr. Soto is a 73-year-old male with a past significant cardiac history, status post ablation on Tuesday on 08/13/19, who presented to the emergency room with complaints of chest pain yesterday and progressively worsening shortness of breath. He will be admitted under observation for: 1. Chest pain. The patient's chest pain has resolved. The patient was found to have an elevated troponin of 14.41. He recently underwent an ablation on Tuesday. We will continue him on his home medications as previously prescribed. At this time, the patient is chest pain free. He has a HEART score of 6 giving him a 12-16.6 risk of adverse cardiac event.We will continue to trend his troponins. I have spoken to Dr. Mg from Cardiology in regard to starting the patient on a heparin drip. The patient is currently on Eliquis and at this time is pain free, the benefits of starting heparin do not outweigh the risk, so heparin was not started. He will continue on his beta maria luisa and isosorbide as previously prescribed as well as aspirin and atorvastatin. We will repeat an EKG in the morning. He will have a transthoracic echocardiogram and Cardiology will see him in consultation. It is suspected that his elevation troponin could be related to his recent ablation as well as the possibility of pericarditis. He will be started on colchicine 0.6 mg per cardiology recommendations. Further recommendations per Cardiology's evaluation in the morning. 2. Shortness of breath. I suspect the shortness of breath could be related to pericarditis, as well as his chest x-ray does show pulmonary edema. The patient did take Lasix today. He has put out 1 L of urine in the emergency room. Blood pressure is soft. We will continue to monitor him at this time and adjust his diuretics as needed. 3. Hypertension. The patient will continue on spironolactone, metoprolol, and hydralazine as previously prescribed. 4. History of congestive heart failure with low ejection fraction. He will continue on Lasix 80 mg p.o. daily as well as spironolactone. 5. Hyperlipidemia. He will continue on simvastatin 80 mg p.o. daily. 6. Type 2 diabetes. The patient will continue on Lantus 45 units subcutaneously b.i.d. I will hold his Jardiance. I will place him on fingersticks a.c. and h.s. with Lispro sliding scale. 7. FEN: He can have a heart healthy, decaff okay diet. 8. Code status: He is a full code. 9. DVT prophylaxis. He will continue with Eliquis. TIME SPENT: Time spent on this admission is 65 minutes, greater than half of that time was spent at the bedside reviewing events leading thus far to his hospitalization, performing physical exam, and reviewing my plan of care. I have discussed this with my attending, Dr. Mary Herrera, she is in agreement with my plan. LETITIA PUGA, CLOTH CUTTER [id number]/CPS #: [id number] JULIANA
[2019-08-16] MEDS: Colchicine* 0.6 MG TAB PO SCH ×3 (02:32→09:59)
[2019-08-16] MEDS: Metoprolol Tartrate TAB* 50 mg PO SCH (06:07)
[2019-08-16 06:17] LABS: ABS Basophils 0.1 10^3/ul (0-0.2); ABS Eosinophils 0.4 10^3/ul (0-0.6); ABS Lymphocytes 1.3 10^3/ul (1.0-4.8); ABS Monocytes 0.8 10^3/ul (0-0.8); ABS Neutrophils 5.4 10^3/ul (1.5-7.7); Eosinophil % 4.9 %; Hematocrit 33 % (42-52); Hemoglobin 11.1 g/dL (14.0-18.0); Mean Corpuscular HGB Conc 34 g/dL (31-36); Mean Corpuscular Hemoglobin 30 pg (27-31); Mean Corpuscular Volume 90 fL (80-94); Mean Platelet Volume 7.5 fL (7.4-10.4); Platelet Count 178 10^3/uL (150-450); Red Blood Count 3.67 10^6 /uL (4.18-5.48); Red Cell Distribution Width 17 % (10-15); White Blood Count 7.9 10^3/uL (3.5-10.8)
[2019-08-16 06:44] LABS: BUN/Creatinine Ratio 30.3 (8-20); EGFR African American 53.4 (>60); EGFR Non-African American 44.2 (>60); Potassium 4.1 mmol/L (3.5-5.0)
[2019-08-16] MEDS ORDERED: Aspirin EC TAB* 81 MG TAB.EC PO SCH (09:00)
[2019-08-16] MEDS ORDERED: Pantoprazole TAB * 40 MG TAB PO SCH (09:00)
[2019-08-16] MEDS ORDERED: Mometasone 220 MCG MDI INH SCH (09:00)
[2019-08-16] MEDS ORDERED: Furosemide TAB* 40 MG PO SCH ×2 (09:00)
[2019-08-16] MEDS ORDERED: Isosorbide Mononitrate ER TAB* 30 MG PO SCH (09:00)
[2019-08-16] MEDS ORDERED: Montelukast Sodium TAB* 10 MG PO SCH (09:00)
[2019-08-16] MEDS ORDERED: Spironolactone TAB* 25 MG PO SCH (09:00)
[2019-08-16] MEDS ORDERED: Cetirizine* 10 MG TAB PO SCH (09:00)
[2019-08-16] MEDS ORDERED: Terazosin CAP* 5 MG PO SCH (09:00)
[2019-08-16] MEDS ORDERED: Clopidogrel TAB* 75 MG PO SCH (09:00)
[2019-08-16] MEDS: Insulin GLARGINE(*) 1 UNITS UNIT SUBCUT SCH (09:54)
[2019-08-16] MEDS: Insulin LISPRO* 1 UNITS UNIT SUBCUT SCH ×2 (09:54→13:26)
[2019-08-16] MEDS: hydrALAZINE TAB* 25 MG PO SCH ×2 (09:57→15:54)
[2019-08-16] MEDS: Apixaban* 5 MG TAB PO SCH (09:58)
[2019-08-16] MEDS ORDERED: Perflutren Lipid Microsphere* 3 ML VIAL ONE (11:47)
--- NOTE | 2019-08-16 14:05 | ECHO ---
*[facility]* [place] [address] Fax #: [phone] Transthoracic Echocardiogram Patient: Nahum Soto : 1945 Study Date: 08/16/2019 Age: 73 Gender: M HR: 63 bpm Height: 69 in /175.3 cm BSA: 2.59 m^2 Weight: 289.4 lb /131.5 kg BMI: 42.8 kg/m^2 *Securities Broker: * Jess Steele [facility] *Referring Physician: * Letitia Puga *Reading Physician: * Bryan Montenegro MD Indications: Chest Pain, unspecified. SOB. History: Atrial fibrillation. Congestive heart failure. PMH: Myocardial infarction. Functional status: Following treatment plan for sleep apnea. Risk factors: Hypertension. Diabetes mellitus. Obese. Hyperlipidemia. Labs, prior tests, procedures, and surgery: Electrophysiology study with ablation (08/13/2019). Atrial fibrillation ablation. Conclusions Summary: - Left ventricle: The cavity size is normal. Wall thickness is increased. Systolic function is moderately to severely reduced. The estimated ejection fraction is 30-35%. Moderate diffuse hypokinesis with regional variations. - Regional wall motion abnormality: Severe hypokinesis of the apical septal myocardium. - Right ventricle: The cavity size is mildly dilated. Systolic function is moderately reduced. - Ventricular septum: Ventricular septal wall motion has a postoperative appearance. - Left atrium: The atrium is severely dilated. - Mitral valve: There is mild to moderate regurgitation. - Pericardium, extracardiac: There is no significant pericardial effusion. - Pulmonary arteries: Systolic pressure is severely increased. Recommendations: Compared to prior study from 12/2018, findings are similar Study data: Transthoracic echocardiogram. Procedure: Transthoracic echocardiography was performed. Intravenous Definity , 3 mlswas administered. Complete 2D, spectral Doppler, and color flow Doppler. Location: Bedside. Patient status: Inpatient. Patient room number: 438. Rhythm: Normal sinus rhythm with PVC's. Findings Left ventricle: The cavity size is normal. Wall thickness is increased. Systolic function is moderately to severely reduced. The estimated ejection fraction is 30-35%. Moderate diffuse hypokinesis with regional variations. Regional wall motion abnormalities: Severe hypokinesis of the apical septal myocardium. Doppler parameters are consistent with a reversible restrictive pattern, indicative of decreased left ventricular diastolic compliance and/or increased left atrial pressure (grade 3 diastolic dysfunction). Right ventricle: The cavity size is mildly dilated. Systolic function is moderately reduced. Systolic pressure is severely increased. Ventricular septum: Ventricular septal wall motion has a postoperative appearance. Left atrium: The atrium is severely dilated. Right atrium: The atrium is moderately dilated. Mitral valve: The Mitral valve annulus appears mildly calcified. The leaflets are moderately thickened. The findings are consistent with mild stenosis. There is mild to moderate regurgitation. Aortic valve: The valve is trileaflet. The leaflets are mildly thickened and mildly calcified. Thickening, consistent with sclerosis. There is no evidence of stenosis. There is trace regurgitation. Tricuspid valve: The leaflets are normal thickness. There is no evidence of stenosis. There is moderate regurgitation. Pulmonic valve: The leaflets are normal thickness. There is no evidence of stenosis. There is trace regurgitation. Aorta: Aortic root: The aortic root is moderately dilated. Ascending aorta: The ascending aorta is mildly dilated. Aortic arch: The aortic arch is appears normal. Pericardium: A prominent pericardial fat pad is present. There is no significant pericardial effusion. Pulmonary arteries: The main pulmonary artery is normal-sized. Systolic pressure is severely increased. Systemic veins: Inferior vena cava: The vessel is dilated. There is (>= 50%) respiratory change in the IVC dimension. Measurements Left ventricle Value Ref Aortic valve continued Value Ref CARMELA, LAX 5.5 cm 4.2 - Peak v, S 1.09 m/sec ----- 5.8 VTI, S 17.9 cm ----- ESD, LAX (H) 4.7 cm 2.5 - Mean grad, S 1.8 mm Hg ----- 4.0 Peak grad, S 4.8 mm Hg ----- FS, LAX (L) 15 % 25 - 43 LVOT/AV, VTI ratio 0.65 ----- PW, ED, LAX (H) 1.5 cm 0.6 - FARIBA, VTI 2.03 cm^2 ----- 1.0 FARIBA, Vmax 1.67 cm^2 ----- FS (L) 15 % 25 - 43 PW, ED (H) 1.5 cm 0.6 - Mitral valve Value Ref 1.0 Peak E 1.02 m/sec ----- E', lat nano, TDI (L) 3.0 cm/sec >=10.0 Peak A 0.35 m/sec - ---- E/e', lat nano, TDI 34 -------- VTI leaflet coapt 26.3 cm ---- - E', med nano, TDI (L) 3.0 cm/sec >=7.0 Decel time 192 ms - ---- E/e', med nano, TDI 34 -------- PHT 128 ms ---- - E', avg, TDI 3.0 cm/sec -------- Mean grad, D 1.4 mm Hg ---- - E/e', avg, TDI (H) 34 <=14 Peak grad, D 4.5 mm Hg - ---- Peak E/A ratio 2.94 ----- LVOT Value Ref MVA, PHT 1.7 cm^2 ----- Diam, S 1.99 cm -------- Area 3.1 cm^2 -------- Pulmonic valve Value Ref Peak dana, S 0.59 m/sec -------- Peak v, S 0.99 m/sec ----- VTI, S 11.7 cm -------- Peak grad, S 4.0 mm Hg ----- Peak grad, S 1 mm Hg -------- Mean grad, S 1 mm Hg -------- Tricuspid valve Value Ref TR peak v (H) 4.23 m/sec <=2.8 Ventricular septum Value Ref Peak RV-RA grad, S 72 mm Hg ----- IVS, ED (H) 1.5 cm 0.6 - 1.0 Aortic root Value Ref Root diam 4.1 cm <4.6 Right ventricle Value Ref AW thickness, ED (H) 1.0 cm 0.1 - Ascending aorta Value Ref 0.5 AAo AP diam, S 3.7 cm ----- CARMELA, LAX 3.9 cm -------- CARMELA minor ax, A4C (H) 4.8 cm 1.9 - Aortic arch Value Ref mid 3.5 Arch diam 2.1 cm ----- Pressure, S 80 mm Hg -------- Decending aorta Value Ref Left atrium Value Ref Bridgette peak dana 0.93 m/sec ----- LA ID 6.6 cm -------- SI dim ES, LAX 6.6 cm -------- Pulmonary artery Value Ref ML dim, A4C 5.4 cm -------- Pressure, S 76.1 mm Hg ----- SI dim, A4C 7.7 cm -------- Vol, ES, 2-p 189 ml -------- Inferior vena cava Value Ref Vol/bsa, ES, 2-p (H) 73 ml/m^2 16 - 34 Diam 3.0 cm ----- Right atrium Value Ref SI dim, ES (H) 6.3 cm 3.4 - 5.3 ML dim, ES, A4C (H) 5.4 cm 2.6 - 4.4 Estimated RAP 8 mm Hg -------- Aortic valve Value Ref Nano diam, S 2.5 cm 2.0 - 3.2 Legend: (L) and (H) regina values outside specified reference range. Prepared and electronically signed by Bryan Montenegro MD 08/16/2019 14:04
--- NOTE | 2019-08-16 14:26 | CONSULT ---
Subjective Date of Service: 08/16/19 Interval History: Date of admission 08/15/2019 Date of consult: 08/16/2019 PCP: Dr. Gillespie [employer] Supervisor: Dr. Farhad Mesa CC: shortness of breath, recent chest discomfort Reason for consult: Above, elevated troponin, recent ablation HPI: Mr. Soto is a 73 year old man with a history as below. His baseline status is being able to walk about 30 feet limited by dypsnea. He uses on average 2 SL NTG most days (some days none if not active) for stable angina (chest pressure) . He had an atrial fibrillation ablation Tuesday08/20/2018 and was discharged the next day. He had chest discomfort after the procedure that was presumed related to the procedure. He had chest pressure again Tuesday night. It was resolved with sitting up. He said it was not like his [place] pain (described [address] Bustos as upper chest discomfort radiating to bilateral arms). It was also not quite like his stable angina discomfort although he could not be specific about the qualitative differences. He has had no chest discomfort since Tuesday. Yesterday he was admitted with MATTSON and fatigue. His troponin was noted to be elevated. He was given IV lasix and usual cardiac medication were resumed. He was also given colchicine. An echocardiogram showed LVEF similar to 12/2018, no significant pericardial effusion. Other than sinus rhythm now instead of Afib, QRS and ST changes are similar to prior to chest pain episodes. Pmhx: Ischemic cardiomyopathy CHF Paroxysmal atrial fibrillation [place], CAD, CABG x 2, PCI Carotid stenosis Obesity sleep apnea Gastroesophageal reflux disease Prostate cancer Diabetes HTN Dyslipidemia Surgical Hx: Coronary Artery Bypass Graft (CABG) - (11/02/2004) Quad bypass ; Single bypass 10/2004, Allergies: Penicillin Tetanus Immune Globulin Keflex Altace Cozaar Marcus Inhibitors FH Father: Heart Disease, Hypertension. Mother: at age 93 natural causes, Aortic Aneurysm, aneurysm at 84. Siblings:2, brother w/stents ; sister ok. SH: retired Patient is a former smoker - Quit in 1972. Alcohol: Denies alcohol use. Drug Use: Denies Drug Use. Medications Active Medications: Acetaminophen (Tylenol Tab*) 650 mg PO Q4H PRN PRN Reason: MILD PAIN or TEMP > 100.4 Albuterol (Ventolin 2.5 Mg/3 Ml Neb.Dorene*) 2.5 mg INH Q6H PRN PRN Reason: SOB/WHEEZING Apixaban (Eliquis*) 5 mg PO BID [facility] Last Admin: 08/16/19 09:58 Dose: 5 mg Aspirin (Aspirin Ec Tab*) 81 mg PO DAILY [facility] Last Admin: 08/16/19 09:57 Dose: 81 mg Cetirizine HCl (Zyrtec*) 10 mg PO DAILY [facility] Last Admin: 08/16/19 09:57 Dose: 10 mg Clopidogrel Bisulfate (Plavix Tab*) 75 mg PO DAILY [facility] Last Admin: 08/16/19 09:57 Dose: 75 mg Colchicine (Colcrys*) 0.6 mg PO DAILY [facility] Last Admin: 08/16/19 09:59 Dose: 0.6 mg Dextrose (Dextrose 50% Vial 50 Ml*) 25 ml IV PUSH .FOR FS < 60 - SS PRN PRN Reason: FS < 60 Fluticasone Propionate (Flonase Nasal [place] 50mcg*) 1 spray BOTH NARES QAM PRN PRN Reason: CONGESTION Furosemide (Lasix Tab*) 80 mg PO DAILY [facility] Last Admin: 08/16/19 09:57 Dose: 80 mg Hydralazine HCl (Apresoline Tab*) 50 mg PO TID [facility] Last Admin: 08/16/19 09:57 Dose: 50 mg Insulin Glargine (Lantus(*)) 45 units SUBCUT BID [facility] Last Admin: 08/16/19 09:54 Dose: 45 units Insulin Human Lispro (Humalog*) 0 units SUBCUT AC [facility]; Protocol Last Admin: 08/16/19 13:26 Dose: 2 units Isosorbide Mononitrate (Imdur Er Tab*) 30 mg PO DAILY [facility] Last Admin: 08/16/19 09:57 Dose: 30 mg Metoprolol Tartrate (Lopressor Tab*) 50 mg PO 0630,1830 [facility] Last Admin: 08/16/19 06:07 Dose: 50 mg Mometasone Furoate (Asmanex 220 Mcg Mdi *) 2 puff INH DAILY [facility]; Protocol Last Admin: 08/16/19 07:29 Dose: 2 puff Montelukast Sodium (Singulair Tab*) 10 mg PO DAILY [facility] Last Admin: 08/16/19 09:57 Dose: 10 mg Pantoprazole Sodium (Protonix Tab*) 40 mg PO QAM [facility] Last Admin: 08/16/19 09:57 Dose: 40 mg Simvastatin (Zocor(Nf)) 80 mg PO BEDTIME [facility] Last Admin: 08/15/19 22:23 Dose: 80 mg Spironolactone (Aldactone Tab*) 25 mg PO DAILY [facility] Last Admin: 08/16/19 09:57 Dose: 25 mg Terazosin HCl (Hytrin Cap*) 5 mg PO DAILY [facility] Last Admin: 08/16/19 13:21 Dose: 5 mg Home Medications: Nitroglycerin TAB 0.4 MG* 0.4 mg SL Q5M PRN MDD 3 doses 08/13/13 [History Confirmed 08/15/19] Pantoprazole TAB * [Protonix TAB*] 40 mg PO QAM 08/13/13 [History Confirmed 03/27] Fluticasone NASAL SPRAY 50MCG* [Flonase NASAL SPRAY 50MCG*] 1 spray BOTH NARES QAM PRN 05/14/16 [History Confirmed 08/15/19] Aspirin EC TAB* [Ecotrin EC Low Dose 81 MG*] 81 mg PO DAILY 12/12/18 [History Confirmed 08/15/19] Cetirizine* [ZyrTEC 10 MG TAB*] 10 mg PO DAILY 12/12/18 [History Confirmed 08/15] Clopidogrel TAB* [Plavix TAB*] 75 mg PO DAILY 12/12/18 [History Confirmed ] Insulin GLARGINE(*) [Lantus(*)] 45 units SUBCUT BID 12/12/18 [History Confirmed 08/15/19] Metoprolol Tartrate TAB* [Lopressor TAB*] 50 mg PO BID 12/12/18 [History Confirmed 08/15/19] Montelukast Sodium TAB* [Singulair 10 MG TAB*] 10 mg PO DAILY 12/12/18 [History Confirmed 08/15/19] Potassium Chlor TAB* [Klor Con ER TAB 10 MEQ*] 10 meq PO DAILY 12/12/18 [ History Confirmed 08/15/19] Simvastatin (NF) [Zocor (NF)] 80 mg PO BEDTIME 12/12/18 [History Confirmed 08/15] Spironolactone TAB* [Aldactone TAB 25 MG*] 25 mg PO DAILY 12/12/18 [History Confirmed 08/15/19] Albuterol 2.5MG/3ML (0.083%)* [Ventolin 2.5 MG/3 ML NEB.DORENE*] 2.5 mg INH .Q6- 12H PRN 07/13/19 [History Confirmed 08/15/19] Apixaban* [Eliquis*] 5 mg PO BID 07/13/19 [History Confirmed 08/15/19] Empaglifozin (NF) [Jardiance (Nf)] 10 mg PO DAILY 07/13/19 [History Confirmed ] Mometasone 220 MCG MDI * [Asmanex 220 MCG MDI *] 2 puff INH DAILY 07/13/19 [ History Confirmed 08/15/19] Sodium Chloride(INHALANT) 3%* 3 % INH Q12H 07/13/19 [History Confirmed 08/15/19] Furosemide TAB* [Lasix TAB*] 80 mg PO DAILY #0 07/14/19 [Rx Confirmed 08/15/19] Terazosin CAP* [Hytrin CAP 5 MG*] 5 mg PO DAILY #0 07/14/19 [Rx Confirmed ] Isosorbide Mononitrate [Isosorbide Mononitrate ER] 30 mg PO DAILY 08/15/19 [ History Confirmed 08/15/19] hydrALAZINE TAB* [Apresoline TAB*] 50 mg PO TID 08/15/19 [History Confirmed 03/27] Review of Systems - Measurements Intake and Output: Intake and Output Last 24 Hours 08/14/19 08/15/19 08/16/19 08/17/19 06:59 06:59 06:59 06:59 Intake Total 0 480 Output Total 0 Balance 0 480 Weight 294 lb 11.2 oz Intake: Oral 0 480 Output: Urine 0 - Review of Systems Constitutional Symptoms: Negative: Weight Gain, Weight Loss, Fever, Night Sweats Dermatology: Negative: Rash, Skin Lesions HEENT: Negative: Change in Hearing, Vertigo Eyes: Negative: Change in Vision, Double Vision Thyroid: Positive: Weight Gain Negative: Palpitations, Weight Loss Pulmonary: Positive: Shortness of Breath, Exercise Intolerance Negative: Sputum, Hemoptysis Cardiology: Positive: Chest Pain, Shortness of Breath Negative: Palpitations, Swelling of Ankles, Peripheral Vascular Dis, Edema, Syncope, Paroxysmal Nocturnal Dyspnea Gastroenterology: Negative: Blood in Stools, Haematemesis, Melena Genital - Urinary: Negative: Dysuria, Polyuria Musculoskeletal: Negative: Joint Pain, Joint Stiffness Endocrinology: Positive: Obesity, Diabetes Negative: Polydipsia, Polyuria Hematologic/Lymphatic: Positive: Easy Brusing, Use of Anticoagulant, Use of Antiplatelet Drugs Negative: Hx Leukemia, Hx Lymphoma Neurology: Negative: Hx of Stroke\TIA, Hx Seizures Psychiatry: Negative: Unusual Anxiety, Suicidal Ideation Allergic/Immunologic: Negative: Hx HIV, Immunocompromise Review of Systems Statement: All other review of systems negative, unless stated above. Objective Vital Signs: Temp Pulse Resp BP Pulse Ox 97 F 71 20 113/73 92 08/16/19 03:08 08/16/19 06:10 08/16/19 03:08 08/16/19 06:10 08/16/19 03:08 Oxygen Devices in Use Now: None Appearance: nad, pleasant Ears/Nose/Mouth/Throat: Clear Oropharnyx, Mucous Membranes Moist Neck: Trachea Midline Respiratory: Symmetrical Chest Expansion and Respiratory Effort, Clear to Auscultation Cardiovascular: RRR, No Edema, - - no rub, no significant murmur, sternotomy scar noted Abdominal: NL Sounds; No Tenderness; No Distention Extremities: - - groins examined no drainage or swelling or hematoma Skin: No Rash or Ulcers Neurological: Alert and Oriented x 3 Laboratory Results: 08/16/19 06:02 08/16/19 06:02 Total Bilirubin 0.50 mg/dL (0.2-1.0) 08/15/19 14:57 AST 87 U/L (13-39) H 08/15/19 14:57 ALT 31 U/L (7-52) 08/15/19 14:57 Alkaline Phosphatase 73 U/L (34-104) 08/15/19 14:57 B-Natriuretic Peptide 1271 pg/mL (<=100) H 08/15/19 14:57 Total Protein 7.5 g/dL (6.4-8.9) 08/15/19 14:57 Albumin 3.7 g/dL (3.2-5.2) 08/15/19 14:57 Globulin 3.8 g/dL (2-4) 08/15/19 14:57 Albumin/Globulin Ratio 1.0 (1-3) 08/15/19 14:57 08/15/19 08/15/19 08/15/19 14:57 17:53 21:04 Troponin I 14.41 H* 15.90 H* 14.64 H* 08/16/19 04:51 Troponin I 12.60 H* Diagnostic Imagin05/30/2019 echo [facility] LVEf reported 40% Nuc 06/12/2019 moderate anterolateral ischemia, little change from 08/18/2015 Transthoracic Echocardiogram Study Date: 08/16/2019 - Left ventricle: The cavity size is normal. Wall thickness is increased. Systolic function is moderately to severely reduced. The estimated ejection fraction is 30-35%. Moderate diffuse hypokinesis with regional variations. - Regional wall motion abnormality: Severe hypokinesis of the apical septal myocardium. - Right ventricle: The cavity size is mildly dilated. Systolic function is moderately reduced. - Ventricular septum: Ventricular septal wall motion has a postoperative appearance. - Left atrium: The atrium is severely dilated. - Mitral valve: There is mild to moderate regurgitation. - Pericardium, extracardiac: There is no significant pericardial effusion. - Pulmonary arteries: Systolic pressure is severely increased. Recommendations: Compared to prior study from 12/2018, findings are similar Echocardiogram - (12/13/2018) Summary: 1. Left ventricle: Systolic function is moderately reduced. The estimated ejection fraction is 30-35%, by visual assessment. Systolic function is worse from the study of May 2018. 2. Right ventricle: The cavity size is moderately dilated. Wall thickness is mildly increased. Systolic function is moderately reduced. 3. Mitral valve: There is moderate regurgitation, directed eccentrically and toward the free wall. 4. Tricuspid valve: There is mild-moderate regurgitation. Holter Monitor - (06/27/2018) No cardiac symptoms reported. HR 48-103; avg HR 65 BPM. Infrequent PVCs (3485 ie 5% of total beat burden). Rare PACs. No VT, No SVT, No AF, No significant pauses. Impression: Overall benign holter monitor showing infrequent PVCs (apparently asx and only 5% of total beat burden) with no VT Carotid Doppler - (04/16/2016) 1. Unilateral exam performed per order. 2. 50-79% stenosis TEREZA (152/50 cm/s) 3. Antegrade RVA flow. 4.No change from previous exam. cardiac chemical nuclear stress test on 05/18/2016 which showed large fixed defect of the anterolateral wall extending to the apex with minimal marginal reversibility. There was concern based on this as it was a high risk stress test and he underwent cardiac catheterization on 05/19/2016. The cardiac catheterization on 05/19/2016 showed an LVEDP of 30-35. The MOY to the LAD graft was widely patent. Vein graft to the RCA demonstrated 40-45% narrowing only and vein graft to the diagonal branch was widely patent. impression of the cardiac catheterization coronary artery bypass grafts were patent with increased LVEDP. Cardiac Catheterization - (12/19/2009) [facility] Severe three vessel coronary artery disease with occlusion of LAD circumflex and right coronary artery. Saphenous vein graft to PDA and saphenous vein graft to D1 are opened and patent. MOY to the LAD is open nd patent. Saphenous vein graft to OM1 that was placed in 2004 appear to be occluded. Cardiac Catheterization - (08/13/2013) Successful intervention into LAD distal with [id number] Promus drug-eluting stent. Intervention into vein graft distal to diagonal branch with [id number] Promus drug-eluting stent. Patient will be continued on medication for management of coronary disease. EKG Data: EKG 07/23/2019 Afib, IVCD PVC diffuse downsloping st depression EKG 08/15 and 04/2020: NSR, QRS morphology/st changes appear grossly similar to 07/23/2019 Assessment/Plan Both Mr. Soto and myself feel his symptoms and abnormal troponin level are directly related to inflammation and tissue injury from the ablation. I did tell him that I cannot exclude a relatively smaller heart attack earlier this week. He did express understanding of this but he says he feels great and wants to go home. I ambulated with him the entire way around [address]. He had no chest discomfort. He only had dyspnea toward end of walk which is a significant improvement from his baseline (? if alevism of sinus rhythm has helped functional status already). He can be discharged from a cardiac standpoint without any medication changes or colchicine. He should follow up with Dr. Mesa after discharged. A stress test once further recovered from the ablation could be considered. Also consideration of discontinuing either aspirin or plavix while on eliquis can be done as an outpatient.
[2019-08-16 15:12] VITALS: BP 123/72
--- NOTE | 2019-08-17 16:26 | DS ---
CC: Dr. Gillespie; Dr. Mesa DISCHARGE SUMMARY: DATE OF ADMISSION: 08/15/19 DATE OF DISCHARGE: 08/16/19 PRIMARY CARE PROVIDER: Dr. Gillespie. DREDGE MATE: Dr. Mesa. DISCHARGE DIAGNOSES: Chest pain and troponin elevation, likely secondary to inflammation and tissue injury from ablation. SECONDARY DIAGNOSES: 1. Ischemic cardiomyopathy. 2. Congestive heart failure with reduced ejection fraction. 3. Paroxysmal atrial fibrillation. 4. Coronary artery disease, status post coronary artery bypass grafting x2 and percutaneous coronary intervention. 5. Carotid stenosis. 6. Morbid obesity with a BMI of 43. 7. Obstructive sleep apnea, on BiPAP. 8. Gastroesophageal reflux disease. 9. Prostate cancer. 10. Type 2 diabetes. 11. Hypertension. 12. Hyperlipidemia. 13. Allergic rhinitis. 14. Asthma. MEDICATION LIST: Unchanged from admission: 1. Albuterol 2.5 mg nebulized q.6 hours p.r.n. shortness of breath and wheezing. 2. Eliquis 5 mg p.o. b.i.d. 3. Aspirin 81 mg p.o. daily. 4. Cetirizine 10 mg p.o. daily. 5. Clopidogrel 75 mg p.o. daily. 6. Jardiance 10 mg p.o. daily. 7. Fluticasone nasal spray 50 mcg 1 spray to both nares daily as needed for allergies. 8. Furosemide 80 mg p.o. daily. 9. Hydralazine 50 mg p.o. t.i.d. 10. Lantus 45 units subcutaneously b.i.d. 11. Isosorbide mononitrate 30 mg p.o. daily. 12. Metoprolol tartrate 50 mg p.o. b.i.d. 13. Mometasone 220 mcg 2 puffs inhaled daily. 14. Montelukast 10 mg p.o. daily. 15. Nitroglycerin 0.4 mg sublingual q.5 minutes p.r.n. chest pain, maximum of 3 doses. 16. Pantoprazole 40 mg p.o. in the morning. 17. Potassium chloride 10 mEq p.o. daily. 18. Simvastatin 80 mg p.o. at bedtime. 19. Sodium chloride 3% nebulized q.12 hours. 20. Spironolactone 25 mg p.o. daily. 21. Terazosin 5 mg p.o. daily. HOSPITAL COURSE: Mr. Soto is a 73-year-old male with a complex past medical history as described abo ve who went to [facility] on 08/13/19 where he underwent atrial fibrillation ablation and he w as discharged the next day. He had chest discomfort after the procedure that was presumed related to the procedure. As the chest pressure persisted, he came to the emergency room for further evaluation . His first troponin was 14.4 and it peaked at 15.9. He was admitted for further evaluation and he was seen in consultation by Cardiology (Dr. Montenegro). He felt that the patient's symptoms and abnormal troponins were directly related to inflammation and tissue injury from the ablation. He cannot comp letely exclude relatively small heart attack but the patient verbalized understanding and told him th at he felt great and wanted to go home. The patient also noted significant improvement of his dyspne a at baseline and there is a question if this sikhism of sinus rhythm has already helped his func tional status. In the beginning, there was suspicion for possible pericarditis, so the patient was r eceiving colchicine but Dr. Montenegro felt that this was not indicated. He also recommended stress test once the patient is further recovered from the ablation and also consideration for discontinuing eit her aspirin or Plavix while the patient on Eliquis, it can be done as an outpatient. The patient was felt to be medically stable to be discharged home today, to follow up with Dr. Mesa and Dr. Gillespie as outpatient. PHYSICAL EXAMINATION: Vital Signs: Temperature 97.4, heart rate is 67, respiratory rate is 17, oxyg en saturation 97% on room air, blood pressure is 123/72. General: The patient is a pleasant, morbid ly obese, elderly gentleman, sitting up in bed, in no acute distress. HEENT: Pupils are equal. Reji st mucous membranes. CVS: Normal S1, S2. Regular rate and rhythm. Chest: Breath sounds present b ilaterally with no added sounds. Neuro: He is alert and oriented x3. Able to move all 4 extremities . DIET: Heart-healthy, consistent carb diet. ACTIVITIES: As tolerated. DISPOSITION: To home. STATUS WHILE IN THE HOSPITAL: Observation. CONDITION AT THE TIME OF DISCHARGE: Fair. Please keep in mind that this is a summarized version of this patient's hospital stay. If you need m ore information, please feel free to call me at [phone] or please obtain the full medical record s. TIME SPENT: Approximately 45 minutes was spent to complete this discharge. [id number]/[facility] #: [id number]
== END 2019-08-16 17:13 | disposition home or self-care (01) ==
LOC: ED 14:16 → MEDTELE 17:31
PROVIDERS: ADMIT Hospitalist; ATTEND Internal Medicine
DX: R07.9 Chest pain, unspecified (principal); R79.89 Other specified abnormal findings of blood chemistry; I11.0 Hypertensive heart disease with heart failure; I50.20 Unspecified systolic (congestive) heart failure; I25.5 Ischemic cardiomyopathy; I25.10 Atherosclerotic heart disease of native coronary artery without angina pectoris; Z95.5 Presence of coronary angioplasty implant and graft; I65.29 Occlusion and stenosis of unspecified carotid artery; E66.01 Morbid (severe) obesity due to excess calories; Z68.41 Body mass index [BMI] 40.0-44.9, adult; G47.33 Obstructive sleep apnea (adult) (pediatric); K21.9 Gastro-esophageal reflux disease without esophagitis; C61 Malignant neoplasm of prostate; E11.9 Type 2 diabetes mellitus without complications; E78.5 Hyperlipidemia, unspecified; J45.909 Unspecified asthma, uncomplicated; I25.2 Old myocardial infarction; E78.00 Pure hypercholesterolemia, unspecified; Z87.891 Personal history of nicotine dependence; Z79.899 Other long term (current) drug therapy; Z79.82 Long term (current) use of aspirin; Z79.01 Long term (current) use of anticoagulants; R94.31 Abnormal electrocardiogram [ECG] [EKG]
CPT/HCPCS: 36415; 71046; 80048; 80053; 83880; 84484; 85025; 85652; 93005; 93306; 94640; 99284; A9270-GY; C8929; G0378

== ENCOUNTER 2019-11-11 08:01 | Emergency (ER) | payer OTHER ==
--- OUTSIDE RECORDS SUMMARY | 2019-11-11 08:07 | XMS REPORT | Continuity of Care Document ---
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 Type 2 diabetes mellitus with other Pedro Gillespie, D.O. specified complication 07/24/2019 Z79.4 event marketing representative (current) use of insulin Pedro Gillespie D.O. 07/24/2019 E11.65 Type 2 diabetes mellitus with hyperglycemia Pedro Gillespie D.O. 07/24/2019 R05 Cough Pedro Gillespie D.O. 07/24/2019 I20.8 Other forms of angina pectoris Pedro Gillespie D.O. 07/16/2019 A04.5 Campylobacter enteritis Pedro Gillespie D.O. 07/16/2019 J20.9 Acute bronchitis, unspecified Pedro Gillespie D.O. 07/09/2019 J11.89 Influenza due to unidentified influenza Pedro Gillespie D.O. virus with other manifestations 07/09/2019 I10 Essential (primary) hypertension Pedro Gillespie D.O. 07/09/2019 J45.40 Moderate persistent asthma, uncomplicated Pedro Gillespie D.O. 07/09/2019 K21.9 Gastro-esophageal reflux disease without Pedro Gillespie, D.O. esophagitis 07/09/2019 E11.69 Type 2 diabetes mellitus with other Pedro Gillespie, D.O. specified complication 07/09/2019 Z79.4 event marketing representative (current) use of insulin Pedro Gillespie D.O. Plan of Treatment Future Appointment(s):01/31/2020 10:00 am - Pedro Gillespie D.O. at Main [id number]/31/2019 - Pedro Gillespie D.O.E11.65 Type 2 diabetes mellitus with hyperglycemiaFollow up:3 mo DM w/ A1cR23.8 Other skin changesReferral:Valentina Munoz MD, GerixvvgjkcQ68.4 event marketing representative (current) use of ldcnqhwT34.01 senior living (current) use of nwfxzqkziwdfbrD37.0 Paroxysmal atrial fibrillation Functional Status Description No Information Available Mental Status Description No Information Available Referrals Refer to Dr Reason for Referral Status Appt Date Valentina Munoz MD Scabing recurrently on bilateral ears. Sent Consider squamous cell vs. actinic keratosis vs. other. Consult and Treat [facility] Office [place] [address] [place] [address] [phone]
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
[2019-11-11 08:22] VITALS: BP 125/87
--- NOTE | 2019-11-11 08:50 | UC ---
Epistaxis Nasal HPI - HPI Summary HPI Summary: patient blew his nose at 3am today and got a nose bleed. he is on blood thinners and has has same experience many times. usually bleeding stops within 15 min. this one is persistent. States he is otherwise feeling well. - History of Current Complaint Chief Complaint: UCGeneralIllness Stated Complaint: NOSE BLEED Time Seen by Provider: 11/11/19 08:17 Hx Obtained From: Patient Onset/Duration: Sudden Onset Timing: Constant Pain Intensity: 0 Character: Light Aggravating Factor(s): Other - blowing nose Alleviating Factor(s): Pressure Associated Signs And Symptoms: Positive: Negative Similar Episode/Dx as:: epistaxis Related Hx: Anticoagulants, Platelet Inhibitors - Allergies/Home Medications Allergies/Adverse Reactions: Allergies Allergy/AdvReac Type Severity Reaction Status Date / Time COY Inhibitors Allergy Coughing Verified 11/11/19 08:09 atorvastatin Allergy Muscle Ache Verified 11/11/19 08:09 cephalexin [From Keflex] Allergy Swelling Verified 11/11/19 08:09 losartan [From Cozaar] Allergy Unknown Verified 11/11/19 08:09 Reaction Details Penicillins Allergy Swelling Verified 11/11/19 08:09 ramipril [From Altace] Allergy Unknown Verified 11/11/19 08:09 Reaction Details Tetanus Vaccines and Toxoid Allergy Unknown Verified 11/11/19 08:09 Reaction Details Home Medications: Home Medications Nitroglycerin TAB 0.4 MG* 0.4 mg SL Q5M PRN MDD 3 doses 08/13/13 [History Confirmed 11/11/19] Pantoprazole TAB * [Protonix TAB*] 40 mg PO QAM 08/13/13 [History Confirmed 12/25] Fluticasone NASAL SPRAY 50MCG* [Flonase NASAL SPRAY 50MCG*] 1 spray BOTH NARES QAM PRN 05/14/16 [History Confirmed 11/11/19] Aspirin EC TAB* [Ecotrin EC Low Dose 81 MG*] 81 mg PO DAILY 12/12/18 [History Confirmed 11/11/19] Cetirizine* [ZyrTEC 10 MG TAB*] 10 mg PO DAILY 12/12/18 [History Confirmed 11/10] Clopidogrel TAB* [Plavix TAB*] 75 mg PO DAILY 12/12/18 [History Confirmed ] Insulin GLARGINE(*) [Lantus 100 units/ml 10 ml VIAL (*)] 45 units SUBCUT BID 02/23 [History Confirmed 11/11/19] Metoprolol Tartrate TAB* [Lopressor TAB*] 50 mg PO BID 12/12/18 [History Confirmed 11/11/19] Montelukast Sodium TAB* [Singulair 10 MG TAB*] 10 mg PO DAILY 12/12/18 [History Confirmed 11/11/19] Potassium Chlor TAB* [Klor Con ER TAB 10 MEQ*] 10 meq PO DAILY 12/12/18 [ History Confirmed 11/11/19] Simvastatin (NF) [Zocor (NF)] 80 mg PO BEDTIME 12/12/18 [History Confirmed 11/10] Spironolactone TAB* [Aldactone TAB 25 MG*] 25 mg PO DAILY 12/12/18 [History Confirmed 11/11/19] Albuterol 2.5MG/3ML (0.083%)* [Ventolin 2.5 MG/3 ML NEB.DORENE*] 2.5 mg INH .Q6- 12H PRN 07/13/19 [History Confirmed 11/11/19] Apixaban* [Eliquis*] 5 mg PO BID 07/13/19 [History Confirmed 11/11/19] Mometasone 220 MCG MDI * [Asmanex 220 MCG MDI *] 2 puff INH DAILY 07/13/19 [ History Confirmed 11/11/19] Sodium Chloride(INHALANT) 3%* 3 % INH Q12H 07/13/19 [History Confirmed 11/11/19] Furosemide TAB* [Lasix TAB*] 80 mg PO DAILY #0 07/14/19 [Rx Confirmed 11/11/19] Terazosin CAP* [Hytrin CAP 5 MG*] 5 mg PO DAILY #0 07/14/19 [Rx Confirmed ] Isosorbide Mononitrate [Isosorbide Mononitrate ER] 30 mg PO DAILY 08/15/19 [ History Confirmed 11/11/19] hydrALAZINE TAB* [Apresoline TAB*] 50 mg PO TID 08/15/19 [History Confirmed 12/25] PMH/Surg Hx/FS Hx/Imm Hx Previously Healthy: Yes Endocrine History: Diabetes, Dyslipidemia Cardiovascular History: Cardiac Disease, Hypertension, Atrial Fibrillation GI/ History: Other - prostatitis - Surgical History Surgical History: Yes Surgery Procedure, Year, and Place: Tonsillectomy 1952. Quadruple bypass 1990 [facility],. single bypass 2004, [facility]. Nasal polyps removal 1991 and 1992 [facility]. Multiple angiograms, [facility] and [facility] [place]. Cardiac Ablation (2019). 2 stents 2003 - [facility]. External beam radiation for prostate CA 1999 [facility]. Scar tissue removal from urethra 2001 [facility] [place]. 2 additional stents Aug 2013 [facility] [place]. Carotid endartectomy 2010 [facility] - Family History Known Family History: Positive: Hypertension - father Negative: Cardiac Disease, Diabetes, Blood Disorder - Social History Occupation: Retired Lives: With Family Alcohol Use: None Substance Use Type: None Smoking Status (MU): Former Smoker Type: Cigarettes Amount Used/How Often: 1ppd for 13 yrs When Did the Patient Quit Smoking/Using Tobacco: 1972 - Immunization History Most Recent Influenza Vaccination: 2018 Most Recent Tetanus Shot: 2012 Most Recent Pneumonia Vaccination: 2012 Review of Systems All Other Systems Reviewed And Are Negative: Yes Constitutional: Positive: Negative Skin: Positive: Negative ENT: Positive: Epistaxis. Negative: Sore Throat, Sinus Pain/Tenderness Respiratory: Positive: Negative. Negative: Shortness Of Breath, Cough Cardiovascular: Positive: Negative Neurological/Mental Status: Positive: Negative. Negative: Headache Psychological: Positive: Negative Is Patient Immunocompromised?: No Physical Exam Triage Information Reviewed: Yes Appearance: Well-Appearing, No Pain Distress, Obese Vital Signs: Initial Vital Signs Temp 97.9 F 11/11/19 08:14 Pulse 70 11/11/19 08:14 Resp 18 11/11/19 08:14 BP 125/87 11/11/19 08:14 Pulse Ox 95 11/11/19 08:14 Vital Signs Reviewed: Yes ENT: Positive: Pharynx normal - there is no blood seen in OP on exam, Other - R sided epistaxis - now almost completely stopped after pressure device applied for 10 min Respiratory Exam: Normal Respiratory: Positive: Lungs clear Cardiovascular Exam: Normal Cardiovascular: Negative: Tachycardia Neurological Exam: Normal Neurological: Positive: Alert Psychological Exam: Normal Skin Exam: Normal - warm, dry, pink Procedures - Procedure Summary Procedure Summary: 0915: Merocel nasal packing lubricated with small amount KY gel and gently inserted into R nare for persistent epistaxis. patient tolerated well Re-Evaluation - Re-Evaluation First Eval Re-Evaluation Time: 09:10 Change: Unchanged - small amount blood dripping from R nare when clamp removed Second Eval Re-Evaluation Time: 09:30 Change: Improved - no further bleeding from R nare after 10 minutes nasal packing Epistaxis Nasal Course/Dx - Differential Dx/Diagnosis Differential Diagnosis/HQI/PQRI: Coagulopathy, Epistaxis, Foreign Body, Hypertension, Polyps, Trauma Provider Diagnosis: Epistaxis Discharge ED - Sign-Out/Discharge Documenting (check all that apply): Patient Departure All imaging exams completed and their final reports reviewed: No Studies - Discharge Plan Condition: Stable Disposition: HOME Patient Education Materials: Nosebleed (ED) Referrals: Pedro Gillespie DO [Primary Care Provider] - Ever Coleman MD [Medical Doctor] - 1 Day (call tomorrow for further evaluation nose bleed) Additional Instructions: please follow written instructions given to you. if your nose bleed returns - please report to emergency department for further treatment. Call ENT (DR. Coleman)m tomorrow to be seen and have a plan to remove nasal packing - Billing Disposition and Condition Condition: STABLE Disposition: Home
== END 2019-11-11 09:50 | disposition home or self-care (01) ==
LOC: UCEAST 08:01
DX: R04.0 Epistaxis (principal); E11.9 Type 2 diabetes mellitus without complications; Z79.4 Long term (current) use of insulin; E78.5 Hyperlipidemia, unspecified; I10 Essential (primary) hypertension; I48.91 Unspecified atrial fibrillation; Z95.1 Presence of aortocoronary bypass graft; Z79.01 Long term (current) use of anticoagulants; Z79.82 Long term (current) use of aspirin; Z79.02 Long term (current) use of antithrombotics/antiplatelets; Z79.899 Other long term (current) drug therapy; Z88.1 Allergy status to other antibiotic agents; Z88.0 Allergy status to penicillin; Z88.7 Allergy status to serum and vaccine; Z88.8 Allergy status to other drugs, medicaments and biological substances; Z87.891 Personal history of nicotine dependence
CPT/HCPCS: 30901; 99211; G0463

== ENCOUNTER 2023-07-25 00:45 | Inpatient (IN) ==
[2023-07-25 01:15] LABS: ABS Basophils 0.1 10^3/uL (0.0-0.1); ABS Eosinophils 0.1 10^3/uL (0.0-0.5); ABS Lymphocytes 1.4 10^3/uL (1.0-4.8); ABS Monocytes 0.8 10^3/uL (0.0-1.1); ABS Nucleated RBC 0.01 10^3/ul; Eosinophil % 1.1 %; Hematocrit 34.7 % (38-53); Hemoglobin 11.9 g/dL (13.2-16.3); Lymphocyte % 14.7 %; Mean Corpuscular Hgb Conc 34.3 g/dL (31-36); Mean Corpuscular Volume 93.4 fL (80-97); Mean Platelet Volume 7.3 fL (7.5-11.2); Nucleated Red Blood Cells % 0.1 %/100WBC (0.0-0.8); Platelet Count 260 10^3/uL (150-450); Red Blood Count 3.71 10^6/uL (4.06-5.63); Red Cell Distribution Width 15.4 % (12-17); White Blood Count 9.4 10^3/uL (3.6-10.2)
[2023-07-25 01:34] LABS: Albumin 3.2 g/dL (3.2-5.2); Albumin/Globulin Ratio 0.7 (1-3); Calcium 9.5 mg/dL (8.6-10.3); Creatinine, Serum 1.6 mg/dL (0.67-1.17); Globulin 4.5 g/dL (2-4); Potassium 4.7 mmol/L (3.5-5.0); Total Bilirubin 0.3 mg/dL (0.2-1.0); Total Protein 7.7 g/dL (6.4-8.9); eGFR CKD-EPI 44.1 (>60)
[2023-07-25 02:14] LABS: TSH Ultra Thyroid Stim Horm 4.21 mcIU/mL (0.34-5.60)
[2023-07-25 02:39] LABS: C Reactive Protein 18.35 mg/L (<8.01)
[2023-07-25 04:18] LABS: Urine Appearance Cloudy; Urine Bilirubin Negative (Negative); Urine Blood 1+ (Negative); Urine Color Yellow; Urine Glucose 3+(>=500 mg/dL) (Negative); Urine Ketones Negative (Negative); Urine Nitrite Negative (Negative); Urine Protein Negative (Negative); Urine Specific Gravity 1.011 (1.002-1.030); Urine Urobilinogen Negative (Negative)
[2023-07-25 04:33] LABS: Urine Bacteria Absent (Absent); Urine Red Blood Cell 2+(6-10/hpf) (Absent); Urine Squamous Epithelial Cell Present (Absent); Urine White Blood Cell Trace(0-5/hpf) (Absent)
[2023-07-25] MEDS ORDERED: Albuterol HFA INHALER 8 gm MDI INH PRN (04:35)
[2023-07-25] MEDS ORDERED: Dextrose 50% Syringe 50 ml 25 GM/50 ML SYRINGE IV PUSH PRN (04:38)
[2023-07-25] MEDS ORDERED: Vancomycin per Pharmacy 1 EA NOTE FOLLOW UP SCH (05:00)
[2023-07-25] MEDS: Cefepime 1 GM in Dextrose 1 GM/50 ML BAG IV SCH ×2 (05:49→19:52)
[2023-07-25] MEDS: Heparin 5000 UNITS/ML 1 mL VIAL SUBCUT SCH ×3 (05:49→22:10)
[2023-07-25] MEDS ORDERED: Vancomycin 2,000 MG in NS 0.9% 500 ml BAG 500 ML IVPB ONE (06:00)
[2023-07-25] MEDS ORDERED: Insulin GLARGINE 100 un/ml 10 ml VIAL SUBCUT ONE (09:00)
[2023-07-25] MEDS: Aspirin EC 81 mg TAB.EC (enteric coated) PO SCH (09:11)
[2023-07-25] MEDS: metroNIDAZOLE IV 500 MG/100ML 500 MG/100 ML BAG IVPB SCH ×2 (11:07→13:43)
[2023-07-25] MEDS: Mometasone 220 MCG MDI INH SCH (12:12)
[2023-07-25] MEDS: Fluticasone NASAL SPRAY 50MCG 16 gm SPRAY BTL INTRANASAL SCH (12:12)
[2023-07-25] MEDS ORDERED: CMC:Simvastatin 20 mg TAB (NF) PO SCH (21:00)
[2023-07-25] MEDS: Insulin GLARGINE 100 un/ml 10 ml VIAL SUBCUT SCH (22:10)
[2023-07-26] MEDS: metroNIDAZOLE IV 500 MG/100ML 500 MG/100 ML BAG IVPB SCH ×4 (00:36→21:37)
[2023-07-26] MEDS: CMCS: Simvastatin 20 mg TAB (NF) PO SCH ×2 (00:58→20:35)
[2023-07-26] MEDS: Cefepime 1 GM in Dextrose 1 GM/50 ML BAG IV SCH ×2 (05:59→17:59)
[2023-07-26 06:03] LABS: ABS Basophils 0.1 10^3/uL (0.0-0.1); ABS Eosinophils 0.3 10^3/uL (0.0-0.5); ABS Lymphocytes 1.5 10^3/uL (1.0-4.8); ABS Monocytes 0.7 10^3/uL (0.0-1.1); ABS Neutrophils 6.4 10^3/uL (1.5-7.6); ABS Nucleated RBC 0.01 10^3/ul; Hemoglobin 11.9 g/dL (13.2-16.3); Lymphocyte % 16.8 %; Mean Corpuscular Hemoglobin 31.5 pg (27-33); Mean Corpuscular Hgb Conc 33.9 g/dL (31-36); Mean Corpuscular Volume 92.8 fL (80-97); Mean Platelet Volume 7.6 fL (7.5-11.2); Nucleated Red Blood Cells % 0.1 %/100WBC (0.0-0.8); Platelet Count 265 10^3/uL (150-450); Red Blood Count 3.77 10^6/uL (4.06-5.63)
[2023-07-26 06:18] LABS: INR 1.23 (0.83-1.13)
[2023-07-26 06:43] LABS: Calcium 9.2 mg/dL (8.6-10.3); Creatinine, Serum 1.35 mg/dL (0.67-1.17); Magnesium 1.8 mg/dL (1.9-2.7); Potassium 4.3 mmol/L (3.5-5.0); eGFR CKD-EPI 54.1 (>60)
[2023-07-26] MEDS: Heparin 5000 UNITS/ML 1 mL VIAL SUBCUT SCH ×3 (07:32→20:32)
[2023-07-26] MEDS: Mometasone 220 MCG MDI INH SCH (07:40)
[2023-07-26] MEDS: Aspirin EC 81 mg TAB.EC (enteric coated) PO SCH (08:39)
[2023-07-26] MEDS: Fluticasone NASAL SPRAY 50MCG 16 gm SPRAY BTL INTRANASAL SCH (08:41)
[2023-07-26] MEDS ORDERED: Influenza vaccine *QUAD* *2023-24* 0.5 ML SYRINGE IM ONE (09:00)
[2023-07-26 09:16] LABS: C Reactive Protein 26.52 mg/L (<8.01)
[2023-07-26] MEDS ORDERED: Iodixanol (CONTRAST) 320 MG/ML 100 ML SDV IV ONE (09:21)
[2023-07-26] MEDS: Vancomycin 1,250 MG in NS 0.9% 250 ml 250 ML IVPB SCH (11:37)
[2023-07-26] MEDS: Insulin GLARGINE 100 un/ml 10 ml VIAL SUBCUT SCH (20:32)
[2023-07-27] MEDS: Cefepime 1 GM in Dextrose 1 GM/50 ML BAG IV SCH ×2 (05:34→16:31)
[2023-07-27 06:23] LABS: ABS Eosinophils 0.3 10^3/uL (0.0-0.5); ABS Lymphocytes 1.4 10^3/uL (1.0-4.8); ABS Monocytes 0.7 10^3/uL (0.0-1.1); ABS Neutrophils 5.9 10^3/uL (1.5-7.6); Eosinophil % 3.4 %; Hematocrit 34.7 % (38-53); Hemoglobin 11.8 g/dL (13.2-16.3); Lymphocyte % 16.5 %; Mean Corpuscular Hemoglobin 31.6 pg (27-33); Mean Corpuscular Hgb Conc 33.9 g/dL (31-36); Mean Corpuscular Volume 93.2 fL (80-97); Mean Platelet Volume 7.7 fL (7.5-11.2); Platelet Count 241 10^3/uL (150-450); Red Blood Count 3.73 10^6/uL (4.06-5.63); Red Cell Distribution Width 15.2 % (12-17); White Blood Count 8.3 10^3/uL (3.6-10.2)
[2023-07-27] MEDS: Heparin 5000 UNITS/ML 1 mL VIAL SUBCUT SCH ×2 (06:27→13:07)
[2023-07-27] MEDS: metroNIDAZOLE IV 500 MG/100ML 500 MG/100 ML BAG IVPB SCH ×3 (06:28→21:18)
[2023-07-27 06:40] LABS: Calcium 9.3 mg/dL (8.6-10.3); Creatinine, Serum 1.25 mg/dL (0.67-1.17); Potassium 4.3 mmol/L (3.5-5.0); eGFR CKD-EPI 59.3 (>60)
[2023-07-27] MEDS: Mometasone 220 MCG MDI INH SCH (07:52)
[2023-07-27] MEDS: Fluticasone NASAL SPRAY 50MCG 16 gm SPRAY BTL INTRANASAL SCH (08:13)
[2023-07-27] MEDS: Aspirin EC 81 mg TAB.EC (enteric coated) PO SCH (08:17)
[2023-07-27] MEDS: Vancomycin 1,250 MG in NS 0.9% 250 ml 250 ML IVPB SCH (08:21)
[2023-07-27] MEDS: Insulin GLARGINE 100 un/ml 10 ml VIAL SUBCUT SCH (21:17)
[2023-07-27] MEDS: CMCS: Simvastatin 20 mg TAB (NF) PO SCH ×2 (21:57→23:28)
[2023-07-28] MEDS: Cefepime 1 GM in Dextrose 1 GM/50 ML BAG IV SCH ×2 (05:19→17:03)
[2023-07-28] MEDS: metroNIDAZOLE IV 500 MG/100ML 500 MG/100 ML BAG IVPB SCH ×3 (06:29→23:31)
[2023-07-28] MEDS ORDERED: Vancomycin Trough Check NOTE FOLLOW UP ONE (07:30)
[2023-07-28] MEDS: Mometasone 220 MCG MDI INH SCH (07:50)
[2023-07-28] MEDS: Aspirin EC 81 mg TAB.EC (enteric coated) PO SCH (08:33)
[2023-07-28] MEDS: Fluticasone NASAL SPRAY 50MCG 16 gm SPRAY BTL INTRANASAL SCH (08:35)
[2023-07-28] MEDS: Vancomycin 1,250 MG in NS 0.9% 250 ml 250 ML IVPB SCH (09:23)
[2023-07-28] MEDS ORDERED: Lidocaine 1% VIAL 10 MG/ML 30 ML VIAL ONE (11:28)
[2023-07-28] MEDS ORDERED: Iodixanol 320 (CONTRAST) 100 ML SDV ONE (11:28)
[2023-07-28] MEDS ORDERED: Heparin 2 UNITS/ML IVPREMIX 3,000 UNIT/1,500 ML BAG IV ONE (11:29)
[2023-07-28] MEDS ORDERED: Midazolam 5 mg/5 ml VIAL 1 mg/ml 5 ml VIAL (5 mg) ONE (11:45)
[2023-07-28] MEDS ORDERED: fentaNYL 100 mcg/2 ml 50 MCG/ML VIAL ONE (11:45)
[2023-07-28] MEDS: Insulin GLARGINE 100 un/ml 10 ml VIAL SUBCUT SCH (23:30)
[2023-07-28] MEDS: CMCS: Simvastatin 20 mg TAB (NF) PO SCH (23:30)
[2023-07-29] MEDS: Cefepime 1 GM in Dextrose 1 GM/50 ML BAG IV SCH (05:30)
[2023-07-29] MEDS ORDERED: Vancomycin 1,500 MG in NS 0.9% 250 ml 250 ML IVPB SCH (06:00)
[2023-07-29 06:35] LABS: Creatinine, Serum 1.16 mg/dL (0.67-1.17); eGFR CKD-EPI 64.9 (>60)
[2023-07-29] MEDS: Heparin 5000 UNITS/ML 1 mL VIAL SUBCUT SCH (07:07)
[2023-07-29] MEDS: metroNIDAZOLE IV 500 MG/100ML 500 MG/100 ML BAG IVPB SCH (07:07)
[2023-07-29] MEDS: Mometasone 220 MCG MDI INH SCH (08:19)
[2023-07-29] MEDS: Aspirin EC 81 mg TAB.EC (enteric coated) PO SCH (09:23)
[2023-07-29] MEDS: Fluticasone NASAL SPRAY 50MCG 16 gm SPRAY BTL INTRANASAL SCH (09:53)
[2023-07-29 10:18] VITALS: BP 108/64
[2023-08-01] MEDS ORDERED: Vancomycin Trough Check NOTE FOLLOW UP ONE (05:30)
== END 2023-07-29 13:25 | disposition home or self-care (01) | DRG 638 ==
LOC: ED 00:45 → EDHOLD 03:17 → SUATTDRO 03:17 → EDHOLD 07:25 → MEDTELE 16:13
PROVIDERS: ADMIT Internal Medicine; ATTEND Hospitalist